=== PATIENT | female | born 1955 | race Caucasian/White ===

== ENCOUNTER 2021-12-10 12:16 | Emergency (ER) | payer MEDICARE, OTHER ==
--- OUTSIDE RECORDS SUMMARY | 2021-12-10 12:20 | XMS REPORT | Continuity of Care Document ---
:1955 Author Organization [facility] t Address [facility] Watkins [address] [place] [id number] Care Team Providers Name Role Phone Edwin GORE Primary Care Physician Unavailable Edwin Gore Attending Clinician Unavailable MELISSA Attending Clinician Unavailable Melissa SARMIENTO Attending Clinician Payers Payer Name Policy Type Policy Number Effective Date Expiration Date Donna clevelandkylee MORRIS/RUTH [id number] 2021 00:00:00 MCARE ADV CHOICE PPO Problems Condition Condition Condition Status Onset Resolution Last Treating Co mments Source Name Details Category Date Date Treatment Clinician Date Chest pain Chest pain Disease Active U nivers 4-20 ity of 00:00: [place] 00 Medical Branch 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 4-05 it y of ventric[place] ventric[place] Medical contractio contractio Br anch n) n) Allergies, Adverse Reactions, Alerts Allergy Allergy Status Severity Reaction(s) Onset Inactive Treating Comm ents Source Name Type Date Date Clinician Codeine Propensi Active Shortness of 2020- U nivers ty to Breath 4-06 ity of adverse 00:00: [place] reaction 00 Medical s Branch CODEINE DRUG Active SOB Univers INGREDI 4-06 ity of 00:00: [place] 00 Medical Branch Clindamy Propensi Active Diarrhea 2018-09 Univ ers rosa ty to 0-27 ity of adverse 00:00: [place] reaction 00 Medical s Branch Latex Propensi Active Itching 2018-09 Univers ty to 0-27 ity of adverse 00:00: [place] reaction 00 Medical s Branch Enoxapar Propensi Active Unknown - 2018-09 Uni vers in ty to See comments 0-27 ity of Sodium adverse 00:00: [place] reaction 00 Medical s Branch Nitrofur Propensi Active Nausea 2018-09 Univer s antoin ty to and/or 0-27 ity of Monohyd/ adverse Vomiting 00:00: [place] M-Cryst reaction 00 Medical s Branch Methylpr Propensi Active Anxiety 2018-09 Unive rs ednisolo ty to 0-27 ity of ne adverse 00:00: [place] reaction 00 Medical s Branch Sulfa Propensi Active Unknown - 2018-09 Unive rs (Sulfona ty to See comments 0-27 it y of mide adverse 00:00: [place] Antibiot reaction 00 Medica l ics) s Branch CLINDAMY DRUG Active Diarrhea 2018-09 Univer s ROSA INGREDI 0-27 ity of 00:00: [place] 00 Medical Branch LATEX DRUG Active ITCHING 2018-09 Univers INGREDI 0-27 ity of 00:00: [place] 00 Medical Branch ENOXAPAR DRUG Active Unknown-Cmnt 2018-09 Un kassie IN INGREDI 0-27 ity of SODIUM 00:00: [place] 00 Medical Branch NITROFUR DRUG Active N/V 2018-09 Univers ANTOIN 0-27 ity of MONOHYD/ 00:00: [place] M-CRYST 00 Medical Branch METHYLPR DRUG Active Anxiety 2018-09 Univers EDNISOLO INGREDI 0-27 ity of NE 00:00: [place] 00 Medical Branch SULFA Drug Active Unknown-Cmnt 2018-09 Univ ers (SULFONA Class 0-27 ity of MIDE 00:00: [place] ANTIBIOT 00 Medical ICS) Branch MethylPR Adverse Active INCREASE HR, C HI St EDNISolo Reaction PRESSURE IN L ukes - ne HEAD [facility] ent Clinics Macrobid Adverse Active NAUSEA[facility] Reaction VOMITING [facility] ent Clinics Lovenox Adverse Active TINGLING, [facility] Reaction THROAT [facility] - SWELLING [facility] ent [facility] Social History Social Habit Start Date Stop Date Quantity Comments Source Exposure to Not sure [facility] SARS-CoV-2 (event) Medica l Branch Tobacco use and 2020-08-16 2020-08-16 Never used [facility] exposure 00:00:00 00:00:00 [facility] Branch Sex Ass[birth year] [facility] 00:00:00 00:00:00 Medical Branch Smoking Status Start Date Stop Date Source Never smoker [facility] Medications Ordered Filled Start Stop Current Ordering Indication Dosage Frequency Signature Comments Components Source Medication Medication Date Date Medication? Clinician (SIG) Name Name magnesium Yes Take by [facility] ers chloride 3-11 mouth. ity of (SLOW-MAG 09:28: [place] ORAL) 07 Medical Branch SERTraline Yes 25mg Take 25 mg U nivers 25 mg 1-21 by mouth ity of tablet 09:28: daily. [place] 19 [facility] Branch cholecalcif Yes 1000U Take 1,000 Univers gilbert, 8-24 Units by ity of vitamin D3, 11:34: mouth [place] (VITAMIN 37 daily. Medical D3) 25 mcg Branch (1,000 unit) tablet Cranberry Yes Take by [facility] ers 400 mg Cap 8-24 mouth. ity of 11:34: [place] 37 [facility] amiodarone Yes 100mg Take 100 Un kassie 200 mg 6-15 mg by ity of tablet 00:00: mouth [place] 00 every Medical other day. Branch Estradiol Estradiol Yes [place] as [facility] 8-14 [facility] directed [facility] - 00:00: Memoria 00 [facility] ent [facility] Amoxicillin Amoxicillin 2020- No [place] [address] -Pot -Pot 8-11 08-16 [place] [facility] - Clavulanate Clavulanate 00:00: 00:00 Memoria 00 :00 [facility] ent [facility] Diclofenac Diclofenac Yes [place] as [facility] Sodium Sodium 5-18 [place] directed Lan es - 00:00: Memoria 00 l [facility] ent Clinics Slow-Mag Slow-Mag Yes [place] [address] [place] [facility] - [facility] ent Clinics Simvastatin Simvastatin Yes [place] TAKE ONE [facility] TABLET BY [facility] - MOUTH ONCE Memoria DAILY l [facility] ent Clinics Levothyroxi Levothyroxi Yes [place] TAKE [address] [facility] ne Sodium ne Sodium [place] TABLET BY [facility]ukes - MOUTH ONCE Memoria DAILY [facility] ON ent AN EMPTY Clinics STOMACH Omeprazole Omeprazole Yes [place] [address] [facility] ent Clinics Progesteron Progesteron Yes [place] [address] [facility] e e [place] applicatio [facility] - n Memoria l [facility] ent Clinics Metoprolol Metoprolol Yes [place] 0.[address] Tartrate Tartrate [place] with food [facility] Clinics Zoloft Zoloft Yes [place] [address] [place] [facility] Clinics Aspirin 81 Aspirin 81 Yes [place] [address] [facility] ent Clinics Levothyroxi Levothyroxi Yes [place] take one [facility] ne Sodium ne Sodium [place] daily [facility] ent Clinics Nasacort AQ Nasacort AQ Yes [place] not [facility] [place] defined [facility] Clinics Sertraline Sertraline Yes [place] TAKE [address] [facility] HCl HCl [place] TABLET BY [facility] - MOUTH ONCE Memoria DAILY l [facility] ent Clinics Prevagen Prevagen Yes [place] as [facility] [place] directed [facility] Clinics Vitamin D3 Vitamin D3 Yes [place] not [facility] defined [facility] Clinics Prolia Prolia Yes [place] not [facility] [place] defined [facility] ent Clinics Metoprolol Metoprolol Yes [place] TAKE [address] [facility] Succinate Succinate [place] TABLET BY [facility] - ER ER MOUTH ONCE Memoria DAILY l [facility] ent Clinics Augmentin Augmentin 2020- No [place] [address] 08-23 [place] [facility] - 00:00 Memoria :00 l [facility] ent Clinics Immunizations Ordered Filled Immunization Date Status Comments Sour e Immunization Name Name Influenza High Dose 2020-05-25 Completed Unive rsity of Quad 00:00:00 [facility] Vital Signs Vital Name Observation Time Observation Value Comments Source Systolic blood 2021-11-11 15:28:00 134 mm[Hg] Univer sity of pressure [facility] Diastolic blood 2021-11-11 15:28:00 81 mm[Hg] Unive rsity of pressure [facility] Heart rate 2021-11-11 15:28:00 65 /min [facility] Respiratory rate 2021-11-11 15:28:00 18 /min [facility] Body height 2021-11-11 15:28:00 160 cm [facility] Body weight 2021-11-11 15:28:00 67.586 kg [facility] BMI 2021-11-11 15:28:00 26.39 kg/m2 [facility] Oxygen saturation in 2021-11-11 15:28:00 100 /min [facility] blood by [facility] Pulse oximetry Branch Procedures This patient has no known procedures. Encounters Start End Encounter Admission Attending Care Care Encounter Source Date/Time Date/Time Type Type Clinicians Facility Department ID 2021-11-09 Outpatient Gore, [facility]:01 Jamey [id number] [facility] 2021-09-28 Outpatient Gore, [facility] 14:23:59 [place] [id number] [facility] 2021-09-28 Outpatient Gore, [facility] 12:57:37 Jame[place] [id number] [facility] 2021-09-28 Outpatient Gore, [facility] [id number] 12:44:09 Jame[place] [id number] [facility] 2021-09-28 Outpatient Gore, [facility] [id number] 12:29:54 Jamey [id number] [facility] 2021-09-28 Outpatient Gore, [facility] [id number] 11:27:46 Jamey [id number] [facility] 2021-09-28 [facility] [id number] 11:22:11 J[place] [id number] [facility] 2021-09-28 Out[facility], [facility] [id number] 11:19:10 Jamey [id number] [facility] 2021-09-28 Outpatient Gore, [facility] [id number] 11:17:26 Jamey [id number] [facility] 2021-09-28 Outpatient Gore, [facility] [id number] 11:13:00 Jamey [id number] [facility] 2021-09-28 Outpatient Gore, [facility] [id number] 11:12:47 Jamey [id number] [facility] 2022-05-26 2022-05-26 Outpatient R MELISSA [facility] [id number] Univers 08:20:00 08:20:00 JESÚS y [facility] 2021-11-22 2021-11-22 ambulatory [facility] [id number] [facility] 2021-11-22 2021-11-22 ambulatory [facility] [id number] [facility]00 [facility] 2021-11-22 2021-11-22 ambulatory [facility] [id number] [facility]00 [facility] 2021-11-11 2021-11-11 Office Melissa [facility] [id number] Univers 09:20:00 09:57:07 Visit Jesús JOSÉ MIGUEL [id number] i ty of [place] [id number] Mckayla FABIAN [id number] [address] 2021-11-11 2021-11-11 Outpatient Nora TORRES [facility] [id number] Univers 09:20:00 09:57:07 JESÚS ity [facility] 2021-11-08 2021-11-08 ambulatory [facility] [id number] [facility] 2021-08-16 2021-08-16 ambulatory [facility] [id number] [facility] 2021-05-13 2021-05-13 Outpatient [facility] [id number] [facility] 2021-04-26 2021-04-26 Outpatient [facility] [id number] [facility] 2021-04-19 2021-04-19 Outpatient [facility] [id number] [facility] 2021-03-28 2021-03-28 Outpatient [facility] [id number] [facility] 2021-03-23 2021-03-23 Outpatient [facility] [id number] [facility] 2021-02-21 2021-02-21 Outpatient [facility] [id number] [facility] 2021-01-11 2021-01-11 Outpatient [facility] [id number] [facility] 2021-01-10 2021-01-10 Outpatient [facility] [id number] [facility] 2020-12-31 2020-12-31 Outpatient [facility] [id number] [facility] 2020-12-31 2020-12-31 Outpatient [facility] [id number] [facility] 2020-12-15 2020-12-15 Outpatient [facility] [id number] [facility] 2020-12-02 2020-12-02 Outpatient [facility] [id number] [facility] 2020-11-30 2020-11-30 [facility] [id number] [facility] 2020-11-25 2020[facility]11-25 [facility] [id number] [facility] 2020-11-25 2020-11-25 [facility] [id number] [facility] 2020-10-27 2020-10-27 [facility] [id number] [facility] 2020-10-08 2020-10-08 [facility] [id number] 00:00:00 00:00:00 [facility] [id number] [place] [id number] [id number] nal 059 [facility] 2020-08-30 2020-08-30 Outpatient [facility] [id number] [facility] 2020-08-10 2020-08-10 Outpatient [facility] [id number] [facility] 2020-07-09 2020-07-09 [facility] [id number] [facility] 2020-06-08 2020-06-08 [facility] [id number] [facility] 2020-05-28 2020-05-28 [facility] [id number] [facility] 2020-04-16 2020-04-16 [facility] [id number] 09:30:00 09:30:00 t Specialty/U Jacki kes - Specialty rology Memori a /Urology Clinic l Clinic Outpati ent Clinics 2020-04-14 2020-04-14 [facility] [id number] 17:02:00 17:02:[address] [address] [place] - Drive [facility] Medicine l Medicine Outpati ent Clinics 2020-04-14 2020-04-14 [facility] [id number] 08:30:00 08:30:[address] [address] Luke [place] - Drive [facility] Medicine l Medicine Outpati ent Clinics 2020-04-12 2020-04-12 [facility] [id number] 17:00:00 17:00:00 [place] [employer] [place] s - Drive [facility] Medicine l Medicine Outpati ent Clinics 2020-04-12 2020-04-12 [facility] [id number] 09:31:00 09:31:[address] [address] Luke [place] - Drive [facility] Medicine l Medicine Outpati ent Clinics 2020-04-07 2020-04-07 [facility] [id number] 13:16:00 13:16:[address] [address] Luke [place] - Drive [facility] Medicine l Medicine Outpati ent Clinics 2020-03-24 2020-03-24 [facility] [id number] 17:13:00 17:13:00 t [facility] Road LuPriceline s - Road [facility] Medicine l Medicine Outpati ent Clinics 2020-03-22 2020-03-22 [facility] [id number] 13:00:00 13:00:00 [facility] s - Road [facility] Medicine Outpati ent Clinics 2020-03-11 2020-03-11 [facility] [id number] 13:23:00 13:23:00 t [place] Intio LuPriceline s - Drive [facility] l Medicine Outpati ent Clinics 2020-03-04 2020-03-04 [facility] [id number] 13:50:00 13:50:00 t [place] readeo s - Drive [facility] Medicine l Medicine Outpati ent Clinics 2020-02-03 2020-02-03 [facility] [id number] 09:12:00 09:12:00 [place] readeo s - Drive [facility] l Medicine Outpati ent Clinics 2020-01-19 2020-01-19 [facility] [id number] 09:00:00 09:00:00 t [facility] and [facility] ent [facility] 2019-11-12 2019-11-12 [facility] [id number] 14:30:00 14:30:00 [place] readeo s - [employer] [facility] Medicine Outpati ent Clinics 2019-11-12 2019-11-12 [facility] [id number] 14:15:00 14:15:00 t [place] readeo s - Drive [facility] Medicine Outpati ent Clinics 2019-08-18 2019-08-18 [facility] [id number] 08:45:00 08:45:00 [place] readeo s - Drive [facility] Medicine Outpati ent Clinics 2019-07-01 2019-07-01 [facility] [id number] 10:14:00 10:14:00 t [place] readeo s - Drive [facility] Medicine Outpati ent Clinics 2019-07-01 2019-07-01 [facility] [id number] 07:48:00 07:48:00 t [place] readeo s [email or web address] [facility] l Medicine Outpati ent Clinics 2019-06-30 2019-06-30 [facility] [id number] 08:00:00 08:00:00 [place] [facility] s - Drive [facility] Medicine l Medicine Outpati ent Clinics 2019-05-22 2019-05-22 [facility] [id number] 14:13:00 14:13:00 t [facility] l Outpati ent Clinics 2019-05-19 2019-05-19 [facility] [id number] 09:45:00 09:45:00 [place] [facility] s - Drive [facility] Medicine l Medicine Outpati ent Clinics 2019-05-14 2019-05-14 [facility] [id number] 13:25:00 13:25:00 t [place] readeo s - Drive [facility] Medicine Medicine Outpati ent Clinics 2019-05-13 2019-05-13 [facility] [id number] 14:32:00 14:32:00 t [place] readeo s - Drive [facility] Medicine l Medicine Outpati ent Clinics 2019-05-13 2019-05-13 [facility] [id number] 12:05:00 12:05:00 t [place] readeo s - Drive [facility] Medicine Medicine Outpati ent Clinics 2019-05-13 2019-05-13 [facility] [id number] 09:37:00 09:37:00 t [place] readeo s - Drive [facility] Medicine Medicine Outpati ent Clinics 2019-03-19 2019-03-19 [facility] [id number] 14:02:00 14:02:00 t [place] readeo s - Drive [facility] Medicine Medicine Outpati ent Clinics 2018-12-25 2018-12-25 [facility] [id number] 11:30:00 11:30:00 t [facility] Clinic l Outpati ent Clinics 2018-12-16 2018-12-16 [facility] [id number] 11:18:00 11:18:00 [place] readeo s - Drive [facility] Medicine Medicine Outpati ent Clinics 2018-11-04 2018-11-04 [facility] [id number] 13:39:00 13:39:00 t [facility] Outpati ent Clinics 2018-09-17 2018-09-17 [facility] [id number] 11:45:00 11:45:00 [place] readeo s - Drive [facility] Medicine Medicine Outpati ent Clinics 2018-08-12 2018-08-12 [facility] [id number] 10:00:00 10:00:00 t [place] readeo s - Drive [facility] Medicine Outpati ent Clinics 2018-03-27 2018-03-27 [facility] [id number] 08:20:00 08:20:00 [place] readeo s - [employer] [facility] Outpati ent Clinics 2018-03-13 2018-03-13 [facility] [id number] 08:02:00 08:02:00 t [place] readeo s - Drive [facility] Medicine Outpati ent Clinics 2018-03-05 2018-03-05 [facility] [id number] 08:09:00 08:09:00 t [place] readeo s - Drive [facility] Medicine Outpati ent Clinics 2018-02-20 2018-02-20 [facility] [id number] 10:48:00 10:48:00 t Women's Women[facility] Luke s - Care Care Clinic [facility] Clinic l Outpati ent Clinics 2018-02-20 2018-02-20 [facility] [id number] 10:21:00 10:21:00 t Women[facility] Clinic l Outpati ent Clinics 2018-02-14 2018-02-14 [facility] [id number] 16:34:00 16:34:00 t Women's Women[facility] Luke [facility] - Care Care Clinic [facility] Clinic l Outpati ent Clinics 2018-02-13 2018-02-13 [facility] [id number] 09:00:00 09:00:00 t hulu s [email or web address] [facility] Medicine Medicine Outpati ent Clinics Results This patient has no known results.
[2021-12-10 13:19] LABS: Urine Blood Negative (Negative); Urine Glucose Negative (Negative); Urine Protein Negative (Negative); Urine Specific Gravity 1.015 (1.005-1.030); Urine pH 6.5 (5.0-7.0)
[2021-12-10 13:44] LABS: Absolute Lymphocytes (CBC) 2.1 K/uL (0.7-4.9); Hematocrit 37.7 % (36.0-45.0); Lymphocytes % 39.5 % (15.3-44.8); MPV 9.4 fL (7.6-11.3); RBC Red Blood Cell Count 4.16 M/uL (3.86-4.86)
[2021-12-10 13:45] LABS: Protime INR 1.03
--- NOTE | 2021-12-10 13:57 | RAD REPORT ---
EXAM DESCRIPTION: Stephanie Single View12/10/2021 1:28 pm CLINICAL HISTORY: Vertigo COMPARISON: 2011 FINDINGS: The lungs appear clear of acute infiltrate. The heart is normal size IMPRESSION: No acute abnormalities displayed
[2021-12-10 14:08] LABS: Albumin 3.7 g/dL (3.4-5.0); Bilirubin Direct 0.1 mg/dL (0-0.2); Bilirubin Total 0.3 mg/dL (0.2-1.0); Magnesium 2.2 mg/dL (1.8-2.4); Potassium 3.8 mmol/L (3.5-5.1); Protein, Total 7.3 g/dL (6.4-8.2); Thyroid Stimulating Hormone 1.42 uIU/mL (0.360-3.740); Troponin High Sensitivity 4.7 pg/mL (<58.9)
--- NOTE | 2021-12-10 17:09 | ER ---
Nurse's Notes [facility] Name: Payton Barron Age: 66 yrs Sex: Female : 1955 Arrival Date: 12/10/2021 Time: 12:18 Bed 6 Private MD: Diagnosis: Palpitations;Syncope Near Presentation: 12/10 12:22 Chief complaint: Patient states: "I was working and I started feeling really dizzy all ab2 the sudden. My arms felt like they were tingling, I thought I was going to pass out." Pt c/o dizziness. Pt c/o a fluttering feeling in her chest. Coronavirus screen: Vaccine status: Patient reports receiving the 2nd dose of the covid vaccine. Client denies travel out of the [place] in the last 14 days. At this time, the client does not indicate any symptoms associated with coronavirus-19. Ebola Screen: Patient negative for fever greater than or equal to 101.5 degrees Fahrenheit, and additional compatible Ebola Virus Disease symptoms Patient denies exposure to infectious person. Patient denies travel to an Ebola-affected area in the 21 days before illness onset. No symptoms or risks identified at this time. Initial Sepsis Screen: Does the patient meet any 2 criteria? No. Patient's initial sepsis screen is negative. Does the patient have a suspected source of infection? No. Patient's initial sepsis screen is negative. Risk Assessment: Do you want to hurt yourself or someone else? Patient reports no desire to harm self or others. Onset of symptoms is unknown. 12:22 Method Of Arrival: Ambulatory ab2 12:22 Acuity: THONY 3 ab2 Triage Assessment: 12:24 General: Appears in no apparent distress. comfortable, Behavior is calm, cooperative, ab2 appropriate for age. Pain: Denies pain. EENT: No deficits noted. Neuro: Level of Consciousness is awake, alert, obeys commands, Oriented to person, place, time, situation, Appropriate for age Rn Telemetry are equal bilaterally Moves all extremities. Speech is normal, Facial symmetry appears normal, Reports dizziness. Cardiovascular: Reports lightheadedness, Denies shortness of breath, Patient's skin is warm and dry. Respiratory: Airway is patent Respiratory effort is even, unlabored, Respiratory pattern is regular, symmetrical. GI:. : No deficits noted. No signs and/or symptoms were reported regarding the genitourinary system. Derm: Skin is intact, Skin is dry, Skin is pink, warm \\T\\ dry. Historical: - Allergies: 12:22 Clindamycin; ab2 12:22 Codeine; ab2 12:22 Latex, Natural Rubber; ab2 12:22 Lovenox; ab2 12:22 methlyprednisolong; ab2 12:22 Sulfa (Sulfonamide Antibiotics); ab2 - PMHx: 12:22 heart palpatations- treated with metoprolol; Hyperlipidemia; Hypothyroidism; ab2 Osteoporosis; - Immunization history:: Adult Immunizations up to date. - Social history:: Smoking status: Patient denies any tobacco usage or history of. Screenin:35 Abuse screen: Denies threats or abuse. Nutritional screening: No deficits noted. vg1 Tuberculosis screening: No symptoms or risk factors identified. Fall Risk No fall in past 12 months (0 pts). No secondary diagnosis (0 pts). IV access (20 points). Ambulatory Aid- None/Bed Rest/Nurse Assist (0 pts). Gait- Normal/Bed Rest/Wheelchair (0 pts) Mental Status- Oriented to own ability (0 pts). Total Jacob Fall Scale indicates No Risk (0-24 pts). Assessment: 12:35 General: Appears in no apparent distress. uncomfortable, Behavior is calm, cooperative. vg1 Pain: Denies pain. Neuro: Level of Consciousness is awake, alert, obeys commands, Oriented to person, place, time, situation, Reports dizziness, Denies headache. Cardiovascular: Reports lightheadedness, palpitations, since this morning Patient's skin is warm and dry. Respiratory: Airway is patent Respiratory effort is even, unlabored. GI: Patient currently denies pain, vomiting. : No signs and/or symptoms were reported regarding the genitourinary system. EENT: No signs and/or symptoms were reported regarding the EENT system. Derm: Skin is intact, is healthy with good turgor. Musculoskeletal: Circulation, motion, and sensation intact. 13:30 Reassessment: Patient appears in no apparent distress at this time. No changes from vg1 previously documented assessment. Patient and/or family updated on plan of care and expected duration. Pain level reassessed. Patient is alert, oriented x 3, equal unlabored respirations, skin warm/dry/pink. 15:09 Reassessment: Patient appears in no apparent distress at this time. No changes from vg1 previously documented assessment. Patient and/or family updated on plan of care and expected duration. Pain level reassessed. Patient is alert, oriented x 3, equal unlabored respirations, skin warm/dry/pink. Patient denies pain at this time. 16:00 Reassessment: Patient appears in no apparent distress at this time. Patient and/or vg1 family updated on plan of care and expected duration. Pain level reassessed. Patient is alert, oriented x 3, equal unlabored respirations, skin warm/dry/pink. Patient denies pain at this time. Vital Signs: 12:22 BP 163 / 79; Pulse 68; Resp 18; Temp 98.1; Pulse Ox 100% on R/A; Weight 65.77 kg; ab2 Height 5 ft. 3 in. (160.02 cm); Pain 0/10; 13:57 BP 127 / 70 LA Supine; Pulse 63; Resp 16; Pulse Ox 100% on R/A; dh3 13:59 BP 115 / 68 LA Sitting; Pulse 64; Resp 16; Pulse Ox 100% on R/A; dh3 14:01 BP 111 / 65 LA Standing; Pulse 65; Resp 16; Pulse Ox 100% on R/A; dh3 15:10 BP 129 / 63; Pulse 63; Resp 15; Pulse Ox 100% ; vg1 16:34 BP 154 / 74; Pulse 60; Resp 14; Pulse Ox 99% ; vg1 12:22 Body Mass Index 25.69 (65.77 kg, 160.02 cm) ab2 ED Course: 12:18 Patient arrived in ED. jj6 12:24 Triage completed. ab2 12:25 Arm band placed on left wrist. ab2 12:26 Prince Lewis NP is PHCP. pm1 12:26 Andi Guzman MD is Attending Physician. pm1 12:30 Nicole Singh, CLEMENTE is Primary Nurse. vg1 12:35 Patient has correct armband on for positive identification. Bed in low position. Call vg1 light in reach. Side rails up X2. electronic device monitor on. Pulse ox on. NIBP on. 12:41 EKG done, by ED staff, reviewed by Prince Lewis NP. dh3 12:50 Initial lab(s) drawn, by me, sent to lab. Inserted saline lock: 22 gauge in right vg1 wrist, using aseptic technique. Blood collected. 13:29 Chest Single View In Process Unspecified. EDMS 16:34 Repeat lab(s) drawn. by me, sent to lab. vg1 17:41 No provider procedures requiring assistance completed. IV discontinued, intact, vg1 bleeding controlled, No redness/swelling at site. Pressure dressing applied. Administered Medications: No medications were administered Outcome: 17:09 Discharge ordered by MD. pm1 17:41 Discharged to home ambulatory. vg1 17:41 Condition: good 17:41 Discharge instructions given to patient, Instructed on discharge instructions, follow up and referral plans. Demonstrated understanding of instructions, follow-up care. 17:41 Patient left the ED. vg1 Signatures: Dispatcher [employer] EDMS Prince Lewis, REGISTER OF DEEDS REGISTER OF DEEDS pm1 Bhumi Pizarro dh3 Nicole Singh RN RN vg1 Indigo Stewartj6 Maxi Zuniga ab2 Corrections: (The following items were deleted from the chart) 13:00 12:57 Wound care: to skin tear to left calf cleaned with chlorhexidine and normal dh3 saline, dressed with steri strips and kerlix dh3 13:03 12:35 Cardiovascular: Patient's skin is warm and dry. vg1 vg1
--- NOTE | 2021-12-10 17:10 | EDPHYS ---
Physician Documentation [facility] Name: Payton Barron Age: 66 yrs Sex: Female : 1955 Arrival Date: 12/10/2021 Time: 12:18 Bed 6 Private MD: ED Physician Andi Guzman HPI: 12/10 12:36 This 66 yrs old Female presents to ER via Ambulatory with complaints of Vertigo, pm1 General Weakness. 12:36 The patient presents with a history of irregular heart beat, Fluttering. Context: The pm1 symptoms occur at rest, and the patient has a history of atrial fibrillation and PVC. Onset: The symptoms/episode began/occurred just prior to arrival. Duration: The patient or guardian reports a single episode, that is now resolved, that lasted 10 minute(s). Modifying factors: The symptoms are aggravated by nothing. The symptoms are alleviated by nothing. Associated signs and symptoms: Pertinent positives: near-syncope, tingling to left and right hands and arms. Vertigo when she moved her head to the right side during onset of symptoms, Pertinent negatives: chest pain, fever, nausea, SOB, vomiting. Severity of symptoms: in the emergency department the symptoms have resolved Pain is currently a 0 / 10. Patient was seen by EP about one month ago to determine if she can be removed from amiodarone. Patient has been taking amiodarone for the past 3 months. It was decided that she should be continued on amiodarone. Historical: - Allergies: 12:22 Clindamycin; ab2 12:22 Codeine; ab2 12:22 Latex, Natural Rubber; ab2 12:22 Lovenox; ab2 12:22 methlyprednisolong; ab2 12:22 Sulfa (Sulfonamide Antibiotics); ab2 - PMHx: 12:22 heart palpatations- treated with metoprolol; Hyperlipidemia; Hypothyroidism; ab2 Osteoporosis; - Immunization history:: Adult Immunizations up to date. - Social history:: Smoking status: Patient denies any tobacco usage or history of. ROS: 12:36 Constitutional: Negative for fever, chills, and weight loss. pm1 12:36 Respiratory: Negative for shortness of breath, cough, wheezing, and pleuritic chest pain, Abdomen/GI: Negative for abdominal pain, nausea, vomiting, diarrhea, and constipation, Back: Negative for injury and pain, MS/Extremity: Negative for injury and deformity, Skin: Negative for injury, rash, and discoloration. 12:36 Cardiovascular: Positive for palpitations, Negative for chest pain. 12:36 Neuro: Positive for near syncope, vertigo and tingling to both hands and arms bilaterally. Generalized weakness, Negative for headache. 12:36 All other systems are negative. Exam: 12:36 Constitutional: This is a well developed, well nourished patient who is awake, alert, pm1 and in no acute distress. Head/Face: Normocephalic, atraumatic. Chest/axilla: Normal chest wall appearance and motion. Nontender with no deformity. No lesions are appreciated. 12:36 Back: No spinal tenderness. No costovertebral tenderness. Full range of motion. Skin: Warm, dry with normal turgor. Normal color with no rashes, no lesions, and no evidence of cellulitis. MS/ Extremity: Pulses equal, no cyanosis. Neurovascular intact. Full, normal range of motion. 12:36 Cardiovascular: Exam negative for acute changes, Rate: normal, Rhythm: regular, Pulses: no pulse deficits are appreciated, Heart sounds: normal, normal S1and S2, no murmur, Edema: is not appreciated. 12:36 Respiratory: Exam negative for acute changes, respiratory distress, shortness of breath, Breath sounds: are clear throughout. 12:36 Abdomen/GI: Exam negative for acute changes, Inspection: abdomen appears normal, Palpation: abdomen is soft and non-tender, in all quadrants. 12:36 Neuro: Exam negative for acute changes, Orientation: is normal, Mentation: is normal, Motor: is normal, moves all fours. Vital Signs: 12:22 BP 163 / 79; Pulse 68; Resp 18; Temp 98.1; Pulse Ox 100% on R/A; Weight 65.77 kg; ab2 Height 5 ft. 3 in. (160.02 cm); Pain 0/10; 13:57 BP 127 / 70 LA Supine; Pulse 63; Resp 16; Pulse Ox 100% on R/A; dh3 13:59 BP 115 / 68 LA Sitting; Pulse 64; Resp 16; Pulse Ox 100% on R/A; dh3 14:01 BP 111 / 65 LA Standing; Pulse 65; Resp 16; Pulse Ox 100% on R/A; dh3 15:10 BP 129 / 63; Pulse 63; Resp 15; Pulse Ox 100% ; vg1 16:34 BP 154 / 74; Pulse 60; Resp 14; Pulse Ox 99% ; vg1 12:22 Body Mass Index 25.69 (65.77 kg, 160.02 cm) ab2 MDM: 12:28 Patient medically screened. vick 13:59 Data reviewed: vital signs. Data interpreted: Pulse oximetry: on room air is 100 %. pm1 Interpretation: normal. 15:10 Counseling: I had a detailed discussion with the patient and/or guardian regarding: lab pm1 results, radiology results, repeat troponin in the ER 4 hours after onset of symptoms. 17:08 Counseling: I had a detailed discussion with the patient and/or guardian regarding: the pm1 historical points, exam findings, and any diagnostic results supporting the discharge/admit diagnosis, lab results, the need for outpatient follow up, to return to the emergency department if symptoms worsen or persist or if there are any questions or concerns that arise at home. 12/10 13:19 Order name: Urine Dipstick-Ancillary; Complete Time: 13:50 EDMS 12/10 13:37 Order name: Basic Metabolic Panel; Complete Time: 14:17 EDMS 12/10 13:37 Order name: Liver (Hepatic) Function; Complete Time: 14:17 EDMS 12/10 13:37 Order name: Troponin High Sensitivity; Complete Time: 14:17 EDMS 12/10 13:37 Order name: NT PRO-BNP; Complete Time: 14:17 EDMS 12/10 13:37 Order name: Magnesium; Complete Time: 14:17 EDMS 12/10 12:35 Order name: EKG; Complete Time: 14:35 pm1 12/10 12:35 Order name: Cardiac monitoring; Complete Time: 12:55 pm1 12/10 12:35 Order name: EKG - Nurse/Tech; Complete Time: 12:42 pm1 12/10 12:35 Order name: IV Saline Lock; Complete Time: 12:55 pm1 12/10 12:35 Order name: Labs collected and sent; Complete Time: 12:55 pm1 12/10 12:35 Order name: O2 Per Protocol; Complete Time: 13:04 pm12/10 12:35 Order name: O2 Sat Monitoring; Complete Time: 13:04 pm1 12/10 13:04 Order name: Chest Single View; Complete Time: 13:57 EDMS 12/10 13:10 Order name: Urine Dipstick-Ancillary (obtain specimen); Complete Time: 14:06 pm1 12/10 13:37 Order name: Thyroid Stimulating Hormone; Complete Time: 14:17 EDMS 12/10 13:37 Order name: CBC with Automated Diff; Complete Time: 13:50 EDMS 12/10 13:40 Order name: Protime (+INR); Complete Time: 13:50 EDMS 12/10 13:50 Order name: Orthostatic Blood Pressure; Complete Time: 14:06 pm1 12/10 16:17 Order name: Troponin HS; Complete Time: 17:04 pm1 Administered Medications: No medications were administered Disposition Summary: 12/10/21 17:09 Discharge Ordered Location: Home pm1 Problem: new pm1 Symptoms: have improved pm1 Condition: Stable pm1 Diagnosis - Palpitations pm1 - Syncope Near pm1 Followup: pm1 - With: Emergency Department - When: As needed - Reason: Worsening of condition Followup: pm1 - With: Private Physician - When: 2 - 3 days - Reason: Recheck today's complaints, Continuance of care, Re-evaluation by your physician Discharge Instructions: - Discharge Summary Sheet pm1 - Near-Syncope pm1 - Palpitations pm1 Forms: - Medication Reconciliation Form pm1 - Thank You Letter pm1 - Antibiotic Education pm1 - Prescription Opioid Use pm1 Addendum: 12/15/2021 18:59 Co-signature as Attending Physician, Andi Guzman MD I agree with the assessment and c ewing plan of care. Signatures: Dispatcher [employer] Andi Coronel MD MD cha Marinas, Patrick, DANYA SENIOR [employer] SYSTEMS PROGRAMMER pm1 Maxi Zuniga ab2 Corrections: (The following items were deleted from the chart) 12/10 14:43 14:35 Chest Single View+RAD.RAD.BRZ ordered. EDMS EDMS 14:44 14:35 PROTIME (+INR)+COAG.LAB.BRZ ordered. EDMS EDMS 14:45 14:35 BASIC METABOLIC PANEL+C.LAB.BRZ ordered. EDMS EDMS 14:45 14:35 CBC+H.LAB.BRZ ordered. EDMS EDMS 14:45 14:35 HEPATIC FUNCTION+C.LAB.BRZ ordered. EDMS EDMS : 14:35 MAGNESIUM+C.LAB.BRZ ordered. EDMS EDMS : 14:35 PROBNP+C.LAB.BRZ ordered. EDMS EDMS : 14:35 Troponin High Sensitivity+C.LAB.BRZ ordered. EDMS EDMS : 14:35 THYROID STIMULAT HORMONE+C.LAB.BRZ ordered. EDMS EDMS
[2021-12-10 18:09] VITALS: TEMP 98.1
[2021-12-10 18:17] VITALS: BP 154/74; O2SAT 99
--- NOTE | 2021-12-12 09:42 | EKG ---
Test Date: 2021-12-10 Test Time: 12:34:09 Aircraft Detail Draftsperson: FOZIA MEASUREMENT RESULTS: Intervals: Rate: 69 LA: 200 QRSD: 102 QT: 422 QTc: 452 Aguilar: P: 62 LA: 200 QRS: 51 T: 45 INTERPRETIVE STATEMENTS: Normal sinus rhythm Normal ECG Compared to ECG 10/16/2015 07:50:40 No significant changes Electronically Signed On 12-12-21 09:36:08 CDT by Stephen Wylie
== END 2021-12-10 17:41 | disposition home or self-care (01) ==
LOC: ER 12:16
DX: R00.2 Palpitations (principal); R55 Syncope and collapse; Z88.6 Allergy status to analgesic agent; Z88.3 Allergy status to other anti-infective agents; Z88.2 Allergy status to sulfonamides; Z91.040 Latex allergy status; Z88.8 Allergy status to other drugs, medicaments and biological substances; E78.5 Hyperlipidemia, unspecified; E03.9 Hypothyroidism, unspecified; M81.0 Age-related osteoporosis without current pathological fracture
CPT/HCPCS: 36415; 71045; 80048; 80076; 81003; 83735; 83880; 84443; 84484; 85025; 85610; 93005; 99284

== ENCOUNTER 2024-11-17 06:35 | Emergency (ER) | payer OTHER ==
--- OUTSIDE RECORDS SUMMARY | 2024-11-17 06:43 | XMS REPORT | Continuity of Care Document ---
Author Name Unknown Address [address] [facility] [address] [place] [address] Organization [facility] [place] Address [address] [facility] [address] [place] [address] Care Team Providers Care Mr Teacher Name Role Phone Razia Gore Primary Care Physician [phone] Bao Razia Edwin Attending Clinician Unavailable LUPIS CEDENO Attending Clinician Unavailable LUPIS CEDENO Attending Clinician Unavailable KEN DIAMOND Attending Clinician Unav ailable KEN DIAMOND Attending Clinician Unav ailable EDGARD GRUBBS Attending Clinician Unavailregine Bell MD, Ramon Attending Clinician [phone] RAMON BELL Attending Clinician Unavailable Arsh Mclean DO Attending Clinician + Lobo SARMIENTO, Ken Attending Clinician + Edgard Hernandez Attending Clinician [phone] Nicko Gore Attending Clinician [phone] Doctor Unassigned, [place] Attending Clinician U navailable JAN MARTINEZ Attending Clinician Unavail able SAMEER SILVA K.HRachel Attending Clinician Unavailtoñito Silva MD, Sendque K.H. Attending Clinician [phone] Therapist, Ad[facility] Respiratory Attending Clinician U navailable Unknown, Attending Attending Clinician Unavailab le UNKNOWN, ATTENDING Attending Clinician Unavailab le RADIOLOGY Attending Clinician Unavailable Radiology Attending Clinician Unavailable Pob, [facility] Lab Main Attending Clinician Unavailregine Silva MD, Sendque K.H. Attending Clinician [phone] Radiology Attending Clinician Unavailable Doctor Unassigned, [place] Attending Clinician U navailable GAMALIEL TORRES Attending Clinician Unavailable 2, [facility] Lab Attending Clinician Unavailable Rowan Jasmine Attending Clinician ROWAN MAGANA Attending Clinician Krista vailable IZABELA CHAWLA Attending Clinician Unavailable Izabela Chawla MD Attending Clinician [phone] Aysha Carrasco NP Attending Clinician [phone] AYSHA CARRASCO Attending Clinician Unavailable Melissa SARMIENTO, Gamaliel Attending Clinician [phone] Test, Vtc Pulmonary Function Attending Clinician Unavailable Unknown, Attending Attending Clinician Unavailab le Only, Adc Test Attending Clinician Unavailable Erik CORNEJO, Kirstie Louis Attending Clinician Unavailab le KI FAIRCHILD Attending Clinician Unavailable ABU-SHARIFEH, TAREQ Attending Clinician Unavailtoñito ESPINOSA, MAYEEQ Attending Clinician Unavaila JET Gallardo Attending Clinician Unavailable SANAZ US Attending Clinician Unavailable EDGARD GRUBBS Admitting Clinician UnavailRAZIA Tubbs Admitting Clinician Unavailable SAMEER SILVA Admitting Clinician Unavaila IZABELA [place] Admitting Clinician Unavailable ARSH MCLEAN Admitting Clinician Unavailable Payers Payer Name Policy Type Policy Number Effective Date Expirati on Date Source MANAGED MEDICARE PPO/FFS GENERIC [id number] 2020 00:00:00 MEDICARE PART A \T\ B [id number] 2018 00:00:00 [place] [id number] 2019 00:00:00 [facility] MCR Advantage (HMO-POS) [id number] 2021 00:00:00 [place] [id number] [place] [id number] [place] [id number] Comm n [place] [address] [id number] [facility] COMMERCIAL NON-CONTRACT GENERIC [id number] 2020 00:00:00 Problems Condition Name Condition Details Condition Category Status Onset Date Resolution Date Last Treatment Date Treating Clinician Comments Source Chest pain Chest pain Disease Active - 00:00: 00 [facility] PVC (premature ventricula r contractio n) PVC (premature ventricula r contractio n) Disease Active 4-05 00:00: 00 [facility] [id number] Incomplete emptying of bladder Problem Common [facility] [id number] Acute UTI Problem Comm on [facility] [id number] Lower urinary tract symptoms (LUTS) Problem [facility] [id number] Abnormal mammogram Problem Common [facility] Dysuria Dysuria Problem [facility] [id number] Mixed hyperlipid emia Problem [facility] Mixed anxiety and depressive disorder Depression with anxiety Problem [facility] [id number] Gastroesop hageal reflux disease without esophagiti s Problem [facility] [id number] Abnormal heart rate Problem [facility] Osteoporos is Osteoporos is Problem [facility] [id number] History of hysterecto my for benign disease Problem [facility] [id number] Seasonal allergic rhinitis, unspecifie d trigger Problem [facility] Hypothyroi dism Hypothyroi dism Problem [facility] [id number] Generalize d anxiety disorder Problem [facility] [id number] Current moderate episode of major depressive disorder without prior episode Problem [facility] [id number] Dementia without behavioral disturbanc e, unspecifie d dementia type Problem [facility] [id number] Subclinica l hypothyroi dism Problem [facility] [id number] Mild dementia Problem [facility] [id number] Vaginal atrophy Problem [facility] [id number] Primary osteoarthr itis of left wrist Problem [facility] [id number] Primary osteoarthr itis of right wrist Problem [facility] [id number] Cystitis bacillary, chronic Problem [facility] [id number] Symptomati c PVCs Problem [facility] Allergies, Adverse Reactions, Alerts Allergy Name Allergy Type Status Severity Reaction(s) Onset Date Inactive Date Treating Clinician Comments Source Codeine Propensi ty to adverse reaction s Active Shortness of Breath 12-07 00:00: 00 [facility] CODEINE DRUG INGREDI Active SOB 12-07 00:00: 00 [facility] CLINDAMY ROSA HCL DRUG INGREDI Active High SOB 2018-09 00:00: 00 [facility] CODEINE DRUG INGREDI Active High SOB 2018-09 00:00: 00 [facility] Clindamy rosa Hcl Drug Allergy Active Shortness of Breath 2018-09-12 00:00: 00 [facility] Clindamy rosa Propensi ty to adverse reaction s Active Diarrhea 2018-09 00:00: 00 [facility] Latex Propensi ty to adverse reaction s Active Itching 2018-09 00:00: 00 [facility] Enoxapar in Sodium Propensi ty to adverse reaction s Active Unknown - See comments 2018-09 00:00: 00 [facility] Nitrofur antoin Monohyd/ M-Cryst Propensi ty to adverse reaction s Active Nausea and/or Vomiting 2018-09 00:00: 00 [facility] Methylpr ednisolo ne Propensi ty to adverse reaction s Active Anxiety 2018-09 00:00: 00 [facility] Sulfa (Sulfona mide Antibiot ics) Propensi ty to adverse reaction s Active Unknown - See comments 2018-09 00:00: 00 [facility] CLINDAMY ROSA DRUG INGREDI Active Diarrhea 2018-09 00:00: 00 [facility] LATEX DRUG INGREDI Active High ITCHING 2018-09 00:00: 00 [facility] ENOXAPAR IN SODIUM DRUG INGREDI Active Unknown-Cmnt 2018-09 00:00: 00 [facility] NITROFUR ANTOIN MONOHYD/ M-CRYST DRUG Active N/V 2018-09 00:00: 00 [facility] METHYLPR EDNISOLO NE DRUG INGREDI Active High Anxiety 2018-09 00:00: 00 [facility] SULFA (SULFONA MIDE ANTIBIOT ICS) Drug Class Active Unknown-Cmnt 2018-09 00:00: 00 [facility] Latex Drug Allergy Active Itching 2018-09 00:00: 00 [facility] 0 Drug allergy Active RASH [facility] clindamy rosa clindamy rosa Active DIARRHEA [facility] codeine codeine Active SOB [facility] methylpr ednisolo ne methylpr ednisolo ne Active INCREASE HR, PRESSURE IN HEAD [facility] nitrofur antoin, macrocry stals / nitrofur antoin, monohydr ate nitrofur antoin, macrocry stals / nitrofur antoin, monohydr ate Active NAUSEA, VOMITING [facility] enoxapar in enoxapar in Active TINGLING, THROAT SWELLING [facility] Social History Social Habit Start Date Stop Date Quantity Comments Source Gender identity [facility] Sexual orientation U [facility] History of Tobacco Use [facility] Sex Assigned At [facility] History of Social function 2024-04-03 00:00:00 2024-04-03 00:00:00 [facility] Exposure to SARS-CoV-2 (event) 2022-12-19 00:00:00 2022-12-29 09:50:00 Not sure [facility] Tobacco use and exposure 2022-03-20 00:00:00 2022-03-20 00:00:00 Smokeless tobacco non-user [facility] Smoking Status Start Date Stop Date Source Never smoked tobacco [facility] Medications Ordered Medication Name Filled Medication Name Start Date Stop Date Current Medication? Ordering Clinician Indication Dosage Frequency Signature (SIG) Comments Components Source cefTRIAXone (ROCEPHIN) 1,000 mg in water for injection, sterile 10 mL IV Push 10-23 18:15: 00 10-23 17:23 :00 No 1000mg 1,000 mg, Intravenou s, ONCE, 1 dose, On Liliya 10/23/24 at 1215, 10 mL, Reason for Anti-Infec tive: Empiric Therapy for Suspected Infection, Empiric Therapy Site: Urine, Duration of therapy: Once (ED) [facility] cephALEXin 500 mg capsule 10-23 00:00: 00 10-29 05:59 :00 Yes [id number] 500mg Take 1 capsule by mouth 4 (four) times daily for 5 days. [facility] METHENAMINE 1 gram tablet 14 00:00: 00 Yes [id number] TAKE 1 TABLET BY MOUTH IN THE MORNING AND 1 TABLET IN THE EVENING WITH MEALS [facility] iopamidol (ISOVUE 370-500 mL) injection 90 mL 2023-09 19:00: 00 08-18 18:07 :00 No [id number] 90mL 90 mL, Intravenou s, ONCE, 1 dose, On Sun08/18/24 at 1300, Routine [facility] methenamine 1 gram tablet 2023-09 00:00: 00 Yes [id number] 1g Take 1 tablet by mouth in the morning and 1 tablet in the evening. Take with meals. [facility] cefdinir 300 mg capsule 2023-09 00:00: 00 08-13 05:59 :00 No [id number] 300mg Take 1 capsule by mouth every 12 (twelve) hours for 5 days. [facility] estradioL 0.01 % (0.1 mg/gram) vaginal cream 2023-09 00:00: 00 Yes [id number] Apply 0.5g (pea size) vaginally with fingertip nightly for two weeks and then twice per week (ie ) [facility] amiodarone 200 mg tablet 2023-09 00:00: 00 Yes [id number] 200mg TAKE 1 TABLET BY MOUTH IN THE MORNING [facility] donepeziL 5 mg tablet 2023-09 15:05: 14 Yes 5mg Take 1 tablet by mouth at bedtime. [facility] AMIODARONE 200 mg tablet 04-04 00:00: 00 07-03 00:00 :00 No [id number] 200mg TAKE 1 TABLET BY MOUTH IN THE MORNING [facility] aspirin 81 mg chewable tablet 8 09:05: 46 Yes 1 tablet [facility] Ondansetron 4 MG Ondansetron 4 MG 4-05 00:00: 00 No 1{table t_on_ e_caliu e_and_a llow_to _dissol ve} Ondansetro n 4 MG cholecalcif gilbert, vitamin D3, 25 mcg (1,000 unit) tablet 10-11 09:49: 16 Yes 1000U Take 1 tablet by mouth in the morning. [facility] Progesteron e Micronized (CRINONE) 4 % Gel 10-11 09:49: 16 Yes 1 applicatio n [facility] aspirin 81 mg chewable tablet 10-11 09:49: 16 Yes 1 tablet [facility] aspirin 81 mg chewable tablet 10-04 09:26: 29 Yes 1 tablet [facility] simvastatin 20 mg tablet 10-04 00:00: 00 Yes [id number] 20mg Take 1 tablet by mouth in the morning. [facility] amiodarone 200 mg tablet 2022-09 00:00: 00 04-04 00:00 :00 No [id number] 200mg Take 1 tablet by mouth in the morning. [facility] amiodarone 100 mg tablet 05-24 08:59: 07 05-24 00:00 :00 No 100mg Take 100 mg by mouth every 2 (two) days. [facility] SERTraline 25 mg tablet 05-24 08:39: 34 Yes 25mg Take 1 tablet by mouth in the morning. [facility] cholecalcif glibert, vitamin D3, 25 mcg (1,000 unit) tablet 05-24 08:39: 34 Yes 1000U Take 1 tablet by mouth in the morning. [facility] Progesteron e Micronized (CRINONE) 4 % Gel 05-24 08:39: 34 Yes 1 applicatio n [facility] denosumab (PROLIA) 60 mg/mL injection 05-24 08:39: 34 Yes not defined [facility] sulfur hexafluorid e microsphr (LUMASON) injection 5 mL 04-04 13:45: 00 04-04 13:35 :00 No [id number] 5mL 5 mL, Intravenou s, ONCE, 1 dose, On Sun04/04/23 at 0845, Routine
cruise staff member approving Restricted medication : SAMEER SILVA [facility] cefpodoxime 100 mg tablet 424 00:00: 00 01-02 04:59 :00 No [id number] 100mg Take 1 tablet by mouth in the morning and 1 tablet in the evening. Do all this for 7 days. [facility] aspirin 81 mg chewable tablet 10-04 12:38: 06 Yes 1 tablet [facility] amiodarone 100 mg tablet 10-04 12:38: 06 Yes 100mg Take 100 mg by mouth every 2 (two) days. [facility] ondansetron (ZOFRAN-ODT ) disintegrat ing tablet 4 mg 09-11 00:15: 00 09-10 23:13 :00 No 4mg 4 mg, Oral, ONCE, 1 dose, On Sun09/10/22 at 1815, Routine [facility] Progesteron e Micronized (CRINONE) 4 % Gel 09-10 18:15: 20 Yes 1 applicatio n [facility] denosumab (PROLIA) 60 mg/mL injection 09-10 18:15: 20 Yes not defined [facility] aspirin 81 mg chewable tablet 09-10 18:15: 20 Yes 1 tablet [facility] levothyroxi ne sodium (LEVOTHYROX INE ORAL) 09-10 18:15: 20 09-10 00:00 :00 No 88ug Take 88 mcg by mouth daily. [facility] SERTraline (ZOLOFT) 50 mg tablet 09-10 18:15: 20 09-10 00:00 :00 No 25mg Take 25 mg by mouth in the morning. [facility] magnesium chloride (SLOW-MAG ORAL) 09-10 17:08: 22 09-10 00:00 :00 No Take by mouth. [facility] Cranberry 400 mg Cap 09-10 17:08: 16 09-10 00:00 :00 No Take by mouth. [facility] ondansetron 4 mg disintegrat ing tablet 09-10 00:00: 00 Yes [id number] 4mg Take 1 tablet by mouth every 8 (eight) hours as needed for Nausea and Vomiting (N/V). [facility] levoFLOXaci n 750 mg tablet 09-10 00:00: 00 09-16 05:59 :00 No [id number] 750mg Take 1 tablet by mouth every 24 (twenty-fo ur) hours for 5 days. [facility] amiodarone 200 mg tablet 2021-09 00:00: 00 11-12 05:59 :00 No [id number] 100mg Take 0.5 tablets by mouth in the morning for 90 days. [facility] amiodarone 200 mg tablet 2021-09 00:00: 00 08-13 00:00 :00 No [id number] 100mg Take 0.5 tablets by mouth in the morning. [facility] amiodarone 200 mg tablet 05-01 00:00: 00 07-10 00:00 :00 No [id number] 100mg Take 0.5 tablets by mouth in the morning. [facility] SERTraline 25 mg tablet 03-20 10:28: 47 Yes 25mg Take 25 mg by mouth daily. [facility] cholecalcif gilbert, vitamin D3, 25 mcg (1,000 unit) tablet 03-20 10:28: 47 Yes 1000U Take 1,000 Units by mouth daily. [facility] Cranberry 400 mg Cap 03-20 10:28: 47 Yes Take by mouth. [facility] amiodarone 200 mg tablet 03-07 00:00: 00 05-01 00:00 :00 No [id number] 100mg Take 0.5 tablets by mouth every other day. [facility] EUTHYROX 88 mcg tablet 6-12 00:00: 00 Yes 88ug Take 1 tablet by mouth every morning. [facility] simvastatin 20 mg tablet 4-20 00:00: 00 10-04 00:00 :00 No 20mg Take 1 tablet by mouth in the morning. [facility] magnesium chloride (SLOW-MAG ORAL) 3-11 09:28: 07 Yes Take by mouth. [facility] Aspirin 81 MG Aspirin 81 MG 5-10 00:00: 00 No 1{table t} QD Aspirin 81 MG estradioL 0.01 % (0.1 mg/gram) vaginal cream 8-14 00:00: 00 07-30 00:00 :00 No as directed [facility] Levothyroxi ne Sodium 100 MCG Levothyroxi ne Sodium 100 MCG No QD Levothyrox ine Sodium 100 MCG Zoloft 50 MG Zoloft 50 MG No 1{table t} QD Zoloft 50 MG Ibandronate Sodium 150 MG Ibandronate Sodium 150 MG No Ibandronat e Sodium 150 MG Amiodarone HCl 200 MG Amiodarone HCl 200 MG No 1{table t} QD Amiodarone HCl 200 MG Donepezil HCl 5 MG Donepezil HCl 5 MG No 1{table t_at_be dtime} QD Donepezil HCl 5 MG Immunizations Ordered Immunization Name Filled Immunization Name Date Status Comments Source Influenza Virus Vaccine,quad Im,preserve Free 65+ 2022-06-01 00:00:00 Completed [facility] Influenza Virus Vaccine,quad Im,preserve Free 65+ 2022-06-01 00:00:00 Completed [facility] Influenza Virus Vaccine,quad Im,preserve Free 65+ 2022-06-01 00:00:00 Completed [facility] Influenza Virus Vaccine,quad Im,preserve Free 65+ 2022-06-01 00:00:00 Completed [facility] Influenza Virus Vaccine,quad Im,preserve Free 65+ 2022-06-01 00:00:00 Completed [facility] Influenza Virus Vaccine,quad Im,preserve Free 65+ 2022-06-01 00:00:00 Completed [facility] Influenza Virus Vaccine,quad Im,preserve Free 65+ 2022-06-01 00:00:00 Completed [facility] Influenza Virus Vaccine,quad Im,preserve Free 65+ 2022-06-01 00:00:00 Completed [facility] Influenza Virus Vaccine,quad Im,preserve Free 65+ 2022-06-01 00:00:00 Completed [facility] Influenza Virus Vaccine,quad Im,preserve Free 65+ 2022-06-01 00:00:00 Completed [facility] Influenza Virus Vaccine,quad Im,preserve Free 65+ 2022-06-01 00:00:00 Completed [facility] Influenza Virus Vaccine,quad Im,preserve Free 65+ 2022-06-01 00:00:00 Completed [facility] Influenza Virus Vaccine,quad Im,preserve Free 65+ 2022-06-01 00:00:00 Completed [facility] Influenza Virus Vaccine,quad Im,preserve Free 65+ 2022-06-01 00:00:00 Completed [facility] Influenza Virus Vaccine,quad Im,preserve Free 65+ (FLUAD) 2022-06-01 00:00:00 Completed [facility] Influenza Virus Vaccine,quad Im,preserve Free 65+ 2022-06-01 00:00:00 Completed [facility] Influenza Virus Vaccine,quad Im,preserve Free 65+ 2022-06-01 00:00:00 Completed [facility] Influenza Virus Vaccine,quad Im,preserve Free 65+ 2022-06-01 00:00:00 Completed [facility] Influenza Virus Vaccine,quad Im,preserve Free 65+ 2022-06-01 00:00:00 Completed [facility] Influenza Virus Vaccine,quad Im,preserve Free 65+ 2022-06-01 00:00:00 Completed [facility] Influenza Virus Vaccine,quad Im,preserve Free 65+ 2022-06-01 00:00:00 Completed [facility] Influenza Virus Vaccine,quad Im,preserve Free 65+ 2022-06-01 00:00:00 Completed [facility] FluAD FluAD 2021-07-03 08:05:00 Completed [facility] FluAD FluAD 2021-07-03 08:05:00 Completed [facility] FluAD FluAD 2021-07-03 08:05:00 Completed [facility] FluAD FluAD 2021-07-03 08:05:00 Completed [facility] FluAD FluAD 2021-07-03 08:05:00 Completed [facility] FluAD FluAD 2021-07-03 08:05:00 Completed [facility] FluAD FluAD 2021-07-03 08:05:00 Completed [facility] FluAD FluAD 2021-07-03 08:05:00 Completed [facility] Fluzone Fluzone 2020-05-25 10:22:00 Completed [facility] Fluzone Fluzone 2020-05-25 10:22:00 Completed [facility] Fluzone Fluzone 2020-05-25 10:22:00 Completed [facility] Fluzone Fluzone 2020-05-25 10:22:00 Completed [facility] Fluzone Fluzone 2020-05-25 10:22:00 Completed [facility] Fluzone Fluzone 2020-05-25 10:22:00 Completed [facility] Fluzone Fluzone 2020-05-25 10:22:00 Completed [facility] Fluzone Fluzone 2020-05-25 10:22:00 Completed [facility] Fluzone Fluzone 2020-05-25 10:22:00 Completed [facility] Influenza High Dose Quad 2020-05-25 00:00:00 Completed [facility] Influenza High Dose Quad 2020-05-25 00:00:00 Completed [facility] Influenza High Dose Quad 2020-05-25 00:00:00 Completed [facility] Influenza High Dose Quad 2020-05-25 00:00:00 Completed [facility] Influenza High Dose Quad 2020-05-25 00:00:00 Completed [facility] Influenza High Dose Quad 2020-05-25 00:00:00 Completed [facility] Influenza High Dose Quad 2020-05-25 00:00:00 Completed [facility] Influenza High Dose Quad 2020-05-25 00:00:00 Completed [facility] Influenza High Dose Quad 2020-05-25 00:00:00 Completed [facility] Influenza High Dose Quad 2020-05-25 00:00:00 Completed [facility] Influenza High Dose Quad 2020-05-25 00:00:00 Completed [facility] Influenza High Dose Quad 2020-05-25 00:00:00 Completed [facility] Influenza High Dose Quad 2020-05-25 00:00:00 Completed [facility] Influenza High Dose Quad 2020-05-25 00:00:00 Completed [facility] Influenza High Dose Quad 2020-05-25 00:00:00 Completed [facility] Influenza High Dose Quad 2020-05-25 00:00:00 Completed [facility] Influenza High Dose Quad 2020-05-25 00:00:00 Completed [facility] Influenza High Dose Quad 2020-05-25 00:00:00 Completed [facility] Influenza High Dose Quad 2020-05-25 00:00:00 Completed [facility] Influenza High Dose Quad 2020-05-25 00:00:00 Completed [facility] Influenza High Dose Quad 2020-05-25 00:00:00 Completed [facility] Influenza High Dose Quad 2020-05-25 00:00:00 Completed [facility] Influenza High Dose Quad 2020-05-25 00:00:00 Completed [facility] Influenza High Dose Quad 2020-05-25 00:00:00 Completed [facility] Prevnar 13 -Pneumonia Vaccine Prevnar 13 -Pneumonia Vaccine 2019-02-03 16:38:00 Completed [facility] Prevnar 13 -Pneumonia Vaccine Prevnar 13 -Pneumonia Vaccine 2019-02-03 16:38:00 Completed [facility] Prevnar 13 -Pneumonia Vaccine Prevnar 13 -Pneumonia Vaccine 2019-02-03 16:38:00 Completed [facility] Prevnar 13 -Pneumonia Vaccine Prevnar 13 -Pneumonia Vaccine 2019-02-03 16:38:00 Completed [facility] Prevnar 13 -Pneumonia Vaccine Prevnar 13 -Pneumonia Vaccine 2019-02-03 16:38:00 Completed [facility] Prevnar 13 -Pneumonia Vaccine Prevnar 13 -Pneumonia Vaccine 2019-02-03 16:38:00 Completed [facility] Prevnar 13 -Pneumonia Vaccine Prevnar 13 -Pneumonia Vaccine 2019-02-03 16:38:00 Completed [facility] Prevnar 13 -Pneumonia Vaccine Prevnar 13 -Pneumonia Vaccine 2019-02-03 16:38:00 Completed [facility] Prevnar 13 -Pneumonia Vaccine Prevnar 13 -Pneumonia Vaccine 2019-02-03 16:38:00 Completed [facility] Influenza High Dose Quad Unknown Completed [facility] Influenza Virus Vaccine,quad Im,preserve Free 65+ (FLUAD) Unknown Completed [facility] Influenza High Dose Quad Unknown Completed [facility] Influenza Virus Vaccine,quad Im,preserve Free 65+ (FLUAD) Unknown Completed [facility] Influenza High Dose Quad Unknown Completed [facility] Influenza Virus Vaccine,quad Im,preserve Free 65+ (FLUAD) Unknown Completed [facility] Influenza High Dose Quad Unknown Completed [facility] Influenza Virus Vaccine,quad Im,preserve Free 65+ (FLUAD) Unknown Completed [facility] Influenza High Dose Quad Unknown Completed [facility] Influenza Virus Vaccine,quad Im,preserve Free 65+ (FLUAD) Unknown Completed [facility] Influenza High Dose Quad Unknown Completed [facility] Influenza Virus Vaccine,quad Im,preserve Free 65+ (FLUAD) Unknown Completed [facility] Influenza High Dose Quad Unknown Completed [facility] Influenza Virus Vaccine,quad Im,preserve Free 65+ (FLUAD) Unknown Completed [facility] Influenza High Dose Quad Unknown Completed [facility] Influenza Virus Vaccine,quad Im,preserve Free 65+ (FLUAD) Unknown Completed [facility] Influenza High Dose Quad Unknown Completed [facility] Influenza Virus Vaccine,quad Im,preserve Free 65+ (FLUAD) Unknown Completed [facility] Influenza High Dose Quad Unknown Completed [facility] Influenza Virus Vaccine,quad Im,preserve Free 65+ (FLUAD) Unknown Completed [facility] Influenza High Dose Quad Unknown Completed [facility] Influenza Virus Vaccine,quad Im,preserve Free 65+ (FLUAD) Unknown Completed [facility] Influenza High Dose Quad Unknown Completed [facility] Influenza Virus Vaccine,quad Im,preserve Free 65+ (FLUAD) Unknown Completed [facility] Influenza High Dose Quad Unknown Completed [facility] Influenza Virus Vaccine,quad Im,preserve Free 65+ (FLUAD) Unknown Completed [facility] Influenza High Dose Quad Unknown Completed [facility] Influenza Virus Vaccine,quad Im,preserve Free 65+ (FLUAD) Unknown Completed [facility] Influenza High Dose Quad Unknown Completed [facility] Influenza Virus Vaccine,quad Im,preserve Free 65+ (FLUAD) Unknown Completed [facility] Influenza High Dose Quad Unknown Completed [facility] Influenza Virus Vaccine,quad Im,preserve Free 65+ (FLUAD) Unknown Completed [facility] Influenza High Dose Quad Unknown Completed [facility] Influenza Virus Vaccine,quad Im,preserve Free 65+ (FLUAD) Unknown Completed [facility] Influenza High Dose Quad Unknown Completed [facility] Influenza Virus Vaccine,quad Im,preserve Free 65+ (FLUAD) Unknown Completed [facility] Influenza High Dose Quad Unknown Completed [facility] Influenza Virus Vaccine,quad Im,preserve Free 65+ (FLUAD) Unknown Completed [facility] Prevnar 20 (PCV20) Prevnar 20 (PCV20) Unknown Completed [facility] FluAD FluAD Unknown Completed [facility] Fluzone Fluzone Unknown Completed [facility] Prevnar 13 -Pneumonia Vaccine Prevnar 13 -Pneumonia Vaccine Unknown Completed [facility] Prevnar 20 (PCV20) Prevnar 20 (PCV20) Unknown Completed [facility] FluAD FluAD Unknown Completed [facility] Fluzone Fluzone Unknown Completed [facility] Prevnar 13 -Pneumonia Vaccine Prevnar 13 -Pneumonia Vaccine Unknown Completed [facility] Prevnar 20 (PCV20) Prevnar 20 (PCV20) Unknown Completed [facility] FluAD FluAD Unknown Completed [facility] Fluzone Fluzone Unknown Completed [facility] Prevnar 13 -Pneumonia Vaccine Prevnar 13 -Pneumonia Vaccine Unknown Completed [facility] Prevnar 20 (PCV20) Prevnar 20 (PCV20) Unknown Completed [facility] FluAD FluAD Unknown Completed [facility] Fluzone Fluzone Unknown Completed [facility] Prevnar 13 -Pneumonia Vaccine Prevnar 13 -Pneumonia Vaccine Unknown Completed [facility] Prevnar 20 (PCV20) Prevnar 20 (PCV20) Unknown Completed [facility] FluAD FluAD Unknown Completed [facility] Fluzone Fluzone Unknown Completed [facility] Prevnar 13 -Pneumonia Vaccine Prevnar 13 -Pneumonia Vaccine Unknown Completed [facility] Prevnar 20 (PCV20) Prevnar 20 (PCV20) Unknown Completed [facility] FluAD FluAD Unknown Completed [facility] Fluzone Fluzone Unknown Completed [facility] Prevnar 13 -Pneumonia Vaccine Prevnar 13 -Pneumonia Vaccine Unknown Completed [facility] Prevnar 20 (PCV20) Prevnar 20 (PCV20) Unknown Completed [facility] FluAD FluAD Unknown Completed [facility] Fluzone Fluzone Unknown Completed [facility] Prevnar 13 -Pneumonia Vaccine Prevnar 13 -Pneumonia Vaccine Unknown Completed [facility] Prevnar 20 (PCV20) Prevnar 20 (PCV20) Unknown Completed [facility] FluAD FluAD Unknown Completed [facility] Fluzone Fluzone Unknown Completed [facility] Prevnar 13 -Pneumonia Vaccine Prevnar 13 -Pneumonia Vaccine Unknown Completed [facility] Prevnar 20 (PCV20) Prevnar 20 (PCV20) Unknown Completed [facility] FluAD FluAD Unknown Completed [facility] Fluzone Fluzone Unknown Completed [facility] Prevnar 13 -Pneumonia Vaccine Prevnar 13 -Pneumonia Vaccine Unknown Completed [facility] Prevnar 20 (PCV20) Prevnar 20 (PCV20) Unknown Completed [facility] FluAD FluAD Unknown Completed [facility] Fluzone Fluzone Unknown Completed [facility] Prevnar 13 -Pneumonia Vaccine Prevnar 13 -Pneumonia Vaccine Unknown Completed [facility] Prevnar 20 (PCV20) Prevnar 20 (PCV20) Unknown Completed [facility] FluAD FluAD Unknown Completed [facility] Fluzone Fluzone Unknown Completed [facility] Prevnar 13 -Pneumonia Vaccine Prevnar 13 -Pneumonia Vaccine Unknown Completed [facility] Prevnar 20 (PCV20) Prevnar 20 (PCV20) Unknown Completed [facility] FluAD FluAD Unknown Completed [facility] Fluzone Fluzone Unknown Completed [facility] Prevnar 13 -Pneumonia Vaccine Prevnar 13 -Pneumonia Vaccine Unknown Completed [facility] Fluad (aIIV4) - SDS - 0.5mL Fluad (aIIV4) - SDS - 0.5mL Unknown Completed [facility] FluAD FluAD Unknown Completed [facility] Fluzone Fluzone Unknown Completed [facility] Prevnar 13 -Pneumonia Vaccine Prevnar 13 -Pneumonia Vaccine Unknown Completed [facility] FluAD FluAD Unknown Completed [facility] Fluzone Fluzone Unknown Completed [facility] Prevnar 13 -Pneumonia Vaccine Prevnar 13 -Pneumonia Vaccine Unknown Completed [facility] FluAD FluAD Unknown Completed [facility] Fluzone Fluzone Unknown Completed [facility] Prevnar 13 -Pneumonia Vaccine Prevnar 13 -Pneumonia Vaccine Unknown Completed [facility] FluAD FluAD Unknown Completed [facility] Fluzone Fluzone Unknown Completed [facility] Prevnar 13 -Pneumonia Vaccine Prevnar 13 -Pneumonia Vaccine Unknown Completed [facility] FluAD FluAD Unknown Completed [facility] Fluzone Fluzone Unknown Completed [facility] Prevnar 13 -Pneumonia Vaccine Prevnar 13 -Pneumonia Vaccine Unknown Completed [facility] FluAD FluAD Unknown Completed [facility] Fluzone Fluzone Unknown Completed [facility] Prevnar 13 -Pneumonia Vaccine Prevnar 13 -Pneumonia Vaccine Unknown Completed [facility] Prevnar 20 (PCV20) Prevnar 20 (PCV20) Unknown Completed [facility] FluAD FluAD Unknown Completed [facility] Fluzone Fluzone Unknown Completed [facility] Prevnar 13 -Pneumonia Vaccine Prevnar 13 -Pneumonia Vaccine Unknown Completed [facility] Prevnar 20 (PCV20) Prevnar 20 (PCV20) Unknown Completed [facility] FluAD FluAD Unknown Completed [facility] Fluzone Fluzone Unknown Completed [facility] Prevnar 13 -Pneumonia Vaccine Prevnar 13 -Pneumonia Vaccine Unknown Completed [facility] Prevnar 20 (PCV20) Prevnar 20 (PCV20) Unknown Completed [facility] FluAD FluAD Unknown Completed [facility] Fluzone Fluzone Unknown Completed [facility] Prevnar 13 -Pneumonia Vaccine Prevnar 13 -Pneumonia Vaccine Unknown Completed [facility] Vital Signs Vital Name Observation Time Observation Value Comments S patricia Systolic blood pressure 2024-11-04 15:29:00 146 mm[Hg] [facility] Diastolic blood pressure 2024-11-04 15:29:00 70 mm[Hg] [facility] Heart rate 2024-11-04 15:29:00 61 /min [facility] Oxygen saturation in Arterial blood by Pulse oximetry 2024-11-04 15:29:00 100 /min [facility] Body temperature 2024-11-04 15:28:00 36.28 Leesa [facility] Respiratory rate 2024-11-04 15:28:00 16 /min [facility] Body weight 2024-11-04 15:28:00 56.7 kg [facility] BMI 2024-11-04 15:28:00 22.14 kg/m2 [facility] height 2024-10-27 09:40:00 64 [in_i] Commo n [facility] weight 2024-10-27 09:40:00 127 [lb_av] Comm on [facility] temperature 2024-10-27 09:40:00 97.3 [degF] Com mon [facility] bmi 2024-10-27 09:40:00 21.8 kg/m2 [facility] oximetry 2024-10-27 09:40:00 97 % [facility] respiratory rate 2024-10-27 09:40:00 16 /min [facility] blood pressure systolic 2024-10-27 09:40:00 110 mm[Hg] [facility] blood pressure diastolic 2024-10-27 09:40:00 67 mm[Hg] [facility] Systolic blood pressure 2024-10-23 17:50:00 169 mm[Hg] [facility] Diastolic blood pressure 2024-10-23 17:50:00 74 mm[Hg] [facility] Heart rate 2024-10-23 17:50:00 59 /[facility] Body temperature 2024-10-23 17:50:00 36.72 Leesa [facility] Respiratory rate 2024-10-23 17:50:00 12 /min [facility] Oxygen saturation in Arterial blood by Pulse oximetry 2024-10-23 17:50:00 99 /min [facility] Body height 2024-10-23 15:41:00 160 cm [facility] Body weight 2024-10-23 15:41:00 56.7 kg [facility] BMI 2024-10-23 15:41:00 22.14 kg/m2 [facility] Systolic blood pressure 2024-10-23 15:15:00 134 mm[Hg] [facility] Diastolic blood pressure 2024-10-23 15:15:00 70 mm[Hg] [facility] Heart rate 2024-10-23 15:15:00 64 /min [facility] 2024-10-23 15:15:00 36.33 Leesa [facility] Respiratory rate 2024-10-23 15:15:00 16 /min [facility] Body height 2024-10-23 15:15:00 160 cm per pt [facility] Body weight 2024-10-23 15:15:00 57.698 kg [facility] BMI 2024-10-23 15:15:00 22.53 kg/m2 [facility] Oxygen saturation in Arterial blood by Pulse oximetry 2024-10-23 15:15:00 100 /min [facility] height 2024-09-18 09:00:00 64 [in_i] Commo n [facility] weight 2024-09-18 09:00:00 126.0 [lb_av] Co mmon [facility] temperature 2024-09-18 09:00:00 97.2 [degF] Com mon [facility] bmi 2024-09-18 09:00:00 21.63 kg/m2 Comm on [facility] oximetry 2024-09-18 09:00:00 99 % Commo n [facility] respiratory rate 2024-09-18 09:00:00 16 /min [facility] blood pressure systolic 2024-09-18 09:00:00 118 mm[Hg] [facility] blood pressure diastolic 2024-09-18 09:00:00 64 mm[Hg] [facility] height 2024-09-02 11:40:00 64 [in_i] Commo n [facility] weight 2024-09-02 11:40:00 125 [lb_av] Comm on [facility] bmi 2024-09-02 11:40:00 21.45 kg/m2 Comm on [facility] Systolic blood pressure 2024-07-30 21:32:00 135 mm[Hg] [facility] Diastolic blood pressure 2024-07-30 21:32:00 70 mm[Hg] [facility] Heart rate 2024-07-30 21:32:00 59 /min [facility] Body temperature 2024-07-30 21:32:00 36.56 Leesa [facility] Respiratory rate 2024-07-30 21:32:00 12 /min [facility] Body height 2024-07-30 21:32:00 160 cm [facility] Body weight 2024-07-30 21:32:00 57.38 kg [facility] BMI 2024-07-30 21:32:00 22.41 kg/m2 [facility] Oxygen saturation in Arterial blood by Pulse oximetry 2024-07-30 21:32:00 99 /min [facility] Systolic blood pressure 2024-06-25 19:54:00 118 mm[Hg] [facility] Diastolic blood pressure 2024-06-25 19:54:00 68 mm[Hg] [facility] Heart rate 2024-06-25 19:54:00 59 /min [facility] Body temperature 2024-06-25 19:54:00 36.39 Leesa [facility] Respiratory rate 2024-06-25 19:54:00 14 /min [facility] Body height 2024-06-25 19:54:00 160 cm [facility] Body weight 2024-06-25 19:54:00 57.017 kg [facility] BMI 2024-06-25 19:54:00 22.27 kg/m2 [facility] Oxygen saturation in Arterial blood by Pulse oximetry 2024-06-25 19:54:00 97 /min [facility] height 2024-05-19 08:10:00 64 [in_i] Commo n [facility] weight 2024-05-19 08:10:00 128 [lb_av] Comm on [facility] temperature 2024-05-19 08:10:00 97.2 [degF] Com mon [facility] bmi 2024-05-19 08:10:00 21.97 kg/m2 Comm on [facility] oximetry 2024-05-19 08:10:00 99 % Commo n [facility] blood pressure systolic 2024-05-19 08:10:00 112 mm[Hg] [facility] blood pressure diastolic 2024-05-19 08:10:00 66 mm[Hg] [facility] height 2024-05-19 08:10:00 64 [in_i] Commo n [facility] weight 2024-05-19 08:10:00 128 [lb_av] Comm on [facility] temperature 2024-05-19 08:10:00 97.2 [degF] Com mon [facility] bmi 2024-05-19 08:10:00 21.97 kg/m2 Comm on [facility] oximetry 2024-05-19 08:10:00 99 % Commo n [facility] blood pressure systolic 2024-05-19 08:10:00 112 mm[Hg] [facility] blood pressure diastolic 2024-05-19 08:10:00 66 mm[Hg] [facility] Systolic blood pressure 2024-04-17 15:53:00 101 mm[Hg] [facility] Diastolic blood pressure 2024-04-17 15:53:00 63 mm[Hg] [facility] Heart rate 2024-04-17 15:53:00 66 /min [facility] Respiratory rate 2024-04-17 15:53:00 14 /min [facility] Body height 2024-04-17 15:53:00 160 cm [facility] Body weight 2024-04-17 15:53:00 60.499 kg [facility] BMI 2024-04-17 15:53:00 23.63 kg/m2 [facility] Oxygen saturation in Arterial blood by Pulse oximetry 2024-04-17 15:53:00 99 /min [facility] Systolic blood pressure 2024-04-03 13:57:00 133 mm[Hg] [facility] Diastolic blood pressure 2024-04-03 13:57:00 69 mm[Hg] [facility] Heart rate 2024-04-03 13:57:00 62 /min [facility] Res[facility] rate 2024-04-03 13:57:00 14 /min [facility] Body height 2024-04-03 13:57:00 160 cm [facility] Body weight 2024-04-03 13:57:00 61.372 kg [facility] BMI 2024-04-03 13:57:00 23.97 kg/m2 [facility] Oxygen saturation in Arterial blood by Pulse oximetry 2024-04-03 13:57:00 99 /min [facility] height 2023-12-07 08:50:00 64 [in_i] Commo n [facility] weight 2023-12-07 08:50:00 143.6 [lb_av] Co mmon [facility] bmi 2023-12-07 08:50:00 24.65 kg/m2 Comm on [facility] oximetry 2023-12-07 08:50:00 99 % Commo n [facility] respiratory rate 2023-12-07 08:50:00 18 /min [facility] blood pressure systolic 2023-12-07 08:50:00 129 mm[Hg] [facility] blood pressure diastolic 2023-12-07 08:50:00 69 mm[Hg] [facility] height 2023-12-07 08:50:00 64 [in_i] Commo n [facility] weight 2023-12-07 08:50:00 143.6 [lb_av] Co mmon [facility] bmi 2023-12-07 08:50:00 24.65 kg/m2 Comm on [facility] oximetry 2023-12-07 08:50:00 99 % Commo n [facility] respiratory rate 2023-12-07 08:50:00 18 /min [facility] blood pressure systolic 2023-12-07 08:50:00 129 mm[Hg] [facility] blood pressure diastolic 2023-12-07 08:50:00 69 mm[Hg] [facility] height 2023-12-07 08:50:00 64 [in_i] Commo n [facility] weight 2023-12-07 08:50:00 143.6 [lb_av] Co mmon [facility] bmi 2023-12-07 08:50:00 24.65 kg/m2 Comm on [facility] oximetry 2023-12-07 08:50:00 99 % Commo n [facility] respiratory rate 2023-12-07 08:50:00 18 /min [facility] blood pressure systolic 2023-12-07 08:50:00 129 mm[Hg] [facility] blood pressure diastolic 2023-12-07 08:50:00 69 mm[Hg] [facility] Systolic blood pressure 2023-10-11 15:47:00 113 mm[Hg] [facility] Diastolic blood pressure 2023-10-11 15:47:00 69 mm[Hg] [facility] Heart rate 2023-10-11 15:47:00 69 /min [facility] Body temperature 2023-10-11 15:47:00 36.39 Le[facility] Respiratory rate 2023-10-11 15:47:00 16 /min [facility] Body height 2023-10-11 15:47:00 160 cm [facility] Body weight 2023-10-11 15:47:00 65.318 kg [facility] BMI 2023-10-11 15:47:00 25.51 kg/m2 [facility] Oxygen saturation in Arterial blood by Pulse oximetry 2023-10-11 15:47:00 99 /min [facility] Systolic blood pressure 2023-10-04 14:44:00 131 mm[Hg] [facility] Diastolic blood pressure 2023-10-04 14:44:00 73 mm[Hg] [facility] Heart rate 2023-10-04 14:44:00 69 /min [facility] Body temperature 2023-10-04 14:44:00 36.39 Leesa [facility] Respiratory rate 2023-10-04 14:44:00 18 /min [facility] Body height 2023-10-04 14:44:00 160 cm [facility] Body weight 2023-10-04 14:44:00 66.18 kg [facility] BMI 2023-10-04 14:44:00 25.85 kg/m2 [facility] Oxygen saturation in Arterial blood by Pulse oximetry 2023-10-04 14:44:00 99 /min [facility] Systolic blood pressure 2023-08-09 18:54:00 107 mm[Hg] [facility] Diastolic blood pressure 2023-08-09 18:54:00 63 mm[Hg] [facility] Heart rate 2023-08-09 18:54:00 64 /min [facility] Body temperature 2023-08-09 18:54:00 36.89 Leesa [facility] Respiratory rate 2023-08-09 18:54:00 19 /min [facility] Body height 2023-08-09 18:54:00 160 cm [facility] Body weight 2023-08-09 18:54:00 68.448 kg [facility] BMI 2023-08-09 18:54:00 26.73 kg/m2 [facility] Oxygen saturation in Arterial blood by Pulse oximetry 2023-08-09 18:54:00 98 /min [facility] height 2023-08-08 08:30:00 64 [in_i] Commo n [facility] weight 2023-08-08 08:30:00 146.4 [lb_av] Co mmon [facility] temperature 2023-08-08 08:30:00 97.7 [degF] Com mon [facility] bmi 2023-08-08 08:30:00 25.13 kg/m2 Comm on [facility] oximetry 2023-08-08 08:30:00 99 % [facility] blood pressure systolic 2023-08-08 08:30:00 136 mm[Hg] [facility] blood pressure diastolic 2023-08-08 08:30:00 62 mm[Hg] [facility] Systolic blood pressure 2023-05-24 13:40:00 135 mm[Hg] [facility] Diastolic blood pressure 2023-05-24 13:40:00 77 mm[Hg] [facility] Heart rate 2023-05-24 13:40:00 76 /min [facility] Body height 2023-05-24 13:40:00 160 cm [facility] Body weight 2023-05-24 13:40:00 69.128 kg [facility] BMI 2023-05-24 13:40:00 27.00 kg/m2 [facility] Oxygen saturation in Arterial blood by Pulse oximetry 2023-05-24 13:40:00 98 /min [facility] height 2023-04-19 09:20:00 64 [in_i] Commo n [facility] weight 2023-04-19 09:20:00 151.4 [lb_av] Co mmon [facility] temperature 2023-04-19 09:20:00 97.2 [degF] Com mon [facility] bmi 2023-04-19 09:20:00 25.98 kg/m2 Comm on [facility] oximetry 2023-04-19 09:20:00 100 % Commo n [facility] respiratory rate 2023-04-19 09:20:00 16 /min [facility] blood pressure systolic 2023-04-19 09:20:00 142 mm[Hg] [facility] blood pressure diastolic 2023-04-19 09:20:00 66 mm[Hg] [facility] height 2023-03-22 08:20:00 64 [in_i] Commo n [facility] weight 2023-03-22 08:20:00 154.0 [lb_av] Co mmon [facility] temperature 2023-03-22 08:20:00 97.5 [degF] Com [facility] bmi 2023-03-22 08:20:00 26.43 kg/m2 Comm on [facility] oximetry 2023-03-22 08:20:00 99 % Commo n [facility] respiratory rate 2023-03-22 08:20:00 18 /min [facility] blood pressure systolic 2023-03-22 08:20:00 123 mm[Hg] [facility] blood pressure diastolic 2023-03-22 08:20:00 65 mm[Hg] [facility] Systolic blood pressure 2022-12-25 09:00:00 146 mm[Hg] [facility] Diastolic blood pressure 2022-12-25 09:00:00 74 mm[Hg] [facility] Heart rate 2022-12-25 09:00:00 63 /min [facility] Oxygen saturation in Arterial blood by Pulse oximetry 2022-12-25 09:00:00 96 /min [facility] Body temperature 2022-12-25 08:18:00 37.06 Le[place] [facility] Respiratory rate 2022-12-25 08:18:00 16 /min [facility] Body height 2022-12-25 08:18:00 160 cm [facility] Body weight 2022-12-25 08:18:00 68.04 kg [facility] BMI 2022-12-25 08:18:00 26.57 kg/m2 [facility] height 2022-11-21 08:00:00 64 [in_i] Commo n [facility] weight 2022-11-21 08:00:00 152.4 [lb_av] Co [facility] temperature 2022-11-21 08:00:00 96.5 [degF] Com [facility] bmi 2022-11-21 08:00:00 26.16 kg/m2 Comm on [facility] oximetry 2022-11-21 08:00:00 99 % Commo n [facility] respiratory rate 2022-11-21 08:00:00 16 /min [facility] blood pressure systolic 2022-11-21 08:00:00 138 mm[Hg] [facility] blood pressure diastolic 2022-11-21 08:00:00 79 mm[Hg] [facility] height 2022-11-21 08:00:00 64 [in_i] Commo n [facility] weight 2022-11-21 08:00:00 152.4 [lb_av] Co mmon [facility] temperature 2022-11-21 08:00:00 96.5 [degF] Com [facility] bmi 2022-11-21 08:00:00 26.16 kg/m2 Comm on [facility] oximetry 2022-11-21 08:00:00 99 % Commo n [facility] respiratory rate 2022-11-21 08:00:00 16 /min [facility] blood pressure systolic 2022-11-21 08:00:00 138 mm[Hg] [facility] blood pressure diastolic 2022-11-21 08:00:00 79 mm[Hg] [facility] Systolic blood pressure 2022-10-04 16:53:00 145 mm[Hg] [facility] Diastolic blood pressure 2022-10-04 16:53:00 75 mm[Hg] [facility] Heart rate 2022-10-04 16:53:00 68 /min [facility] Body temperature 2022-10-04 16:51:00 35.72 Leesa [facility] Respiratory rate 2022-10-04 16:51:00 17 /min [facility] Body height 2022-10-04 16:51:00 160 cm [facility] Body weight 2022-10-04 16:51:00 69.446 kg [facility] BMI 2022-10-04 16:51:00 27.12 kg/m2 [facility] Oxygen saturation in Arterial blood by Pulse oximetry 2022-10-04 16:51:00 100 /min [facility] Systolic blood pressure 2022-09-10 22:36:00 126 mm[Hg] [facility] Diastolic blood pressure 2022-09-10 22:36:00 75 mm[Hg] [facility] Heart rate 2022-09-10 22:36:00 77 /min [facility] Body temperature 2022-09-10 22:36:00 37.28 Leesa [facility] Respiratory rate 2022-09-10 22:36:00 16 /min [facility] Body height 2022-09-10 22:36:00 160 cm [facility] Body weight 2022-09-10 22:36:00 68.04 kg [facility] BMI 2022-09-10 22:36:00 26.57 kg/m2 [facility] Oxygen saturation in Arterial blood by Pulse oximetry 2022-09-10 22:36:00 100 /min [facility] height 2022-07-24 08:00:00 64 [in_i] Commo n [facility] weight 2022-07-24 08:00:00 154.8 [lb_av] Co on [facility] temperature 2022-07-24 08:00:00 96.6 [degF] Com mon [facility] bmi 2022-07-24 08:00:00 26.57 kg/m2 Comm on [facility] oximetry 2022-07-24 08:00:00 98 % Commo n [facility] respiratory rate 2022-07-24 08:00:00 18 /min [facility] blood pressure systolic 2022-07-24 08:00:00 119 mm[Hg] [facility] blood pressure diastolic 2022-07-24 08:00:00 67 mm[Hg] [facility] Systolic blood pressure 2022-06-01 13:45:00 105 mm[Hg] [facility] Diastolic blood pressure 2022-06-01 13:45:00 66 mm[Hg] [facility] Heart rate 2022-06-01 13:45:00 62 /min [facility] Body temperature 2022-06-01 13:45:00 35.61 Leesa [facility] Respiratory rate 2022-06-01 13:45:00 18 /min [facility] Body height 2022-06-01 13:45:00 160 cm [facility] Body weight 2022-06-01 13:45:00 68.901 kg [facility] BMI 2022-06-01 13:45:00 26.91 kg/m2 [facility] Oxygen saturation in Arterial blood by Pulse oximetry 2022-06-01 13:45:00 100 /min [facility] height 2022-03-22 08:45:00 64 [in_i] Commo n [facility] weight 2022-03-22 08:45:00 150.2 [lb_av] Co on [facility] temperature 2022-03-22 08:45:00 97.8 [degF] Com [facility] bmi 2022-03-22 08:45:00 25.78 kg/m2 Comm on [facility] oximetry 2022-03-22 08:45:00 96 % Commo n [facility] respiratory rate 2022-03-22 08:45:00 16 /min [facility] blood pressure systolic 2022-03-22 08:45:00 153 mm[Hg] [facility] blood pressure diastolic 2022-03-22 08:45:00 67 mm[Hg] [facility] height 2022-03-21 08:40:00 64 [in_i] Commo n [facility] weight 2022-03-21 08:40:00 148.6 [facility]lb_av] [facility] 2022-03-21 08:40:00 97.9 [degF] Com [facility] bmi 2022-03-21 08:40:00 25.5 kg/m2 Commo n [facility] oximetry 2022-03-21 08:40:00 96 % Commo n [facility] respiratory rate 2022-03-21 08:40:00 17 /min [facility] blood pressure systolic 2022-03-21 08:40:00 134 mm[Hg] [facility] blood pressure diastolic 2022-03-21 08:40:00 66 mm[Hg] [facility] height 2021-12-19 14:15:00 64 [in_i] Commo n [facility] weight 2021-12-19 14:15:00 148.6 [lb_av] Co [facility] temperature 2021-12-19 14:15:00 98.6 [degF] Com [facility] bmi 2021-12-19 14:15:00 25.5 kg/m2 Commo n [facility] oximetry 2021-12-19 14:15:00 98 % Commo n [facility] respiratory rate 2021-12-19 14:15:00 16 /min Common [facility] blood pressure systolic 2021-12-19 14:15:00 109 mm[Hg] Common [facility] blood pressure diastolic 2021-12-19 14:15:00 56 mm[Hg] [facility] height 2021-11-22 08:20:00 64 [in_i] Commo n [facility] weight 2021-11-22 08:20:00 149.8 [lb_av] Co [facility] temperature 2021-11-22 08:20:00 97.0 [degF] Com [facility] bmi 2021-11-22 08:20:00 25.71 kg/m2 Comm on [facility] oximetry 2021-11-22 08:20:00 97 % Commo n [facility] respiratory rate 2021-11-22 08:20:00 17 /min Common [facility] blood pressure systolic 2021-11-22 08:20:00 133 mm[Hg] Common [facility] blood pressure diastolic 2021-11-22 08:20:00 71 mm[Hg] Common [facility] height 2021-11-22 08:30:00 64 [in_i] Commo n [facility] weight 2021-11-22 08:30:00 149.8 [lb_av] Co mmon [facility] temperature 2021-11-22 08:30:00 97.0 [degF] Com [facility] bmi 2021-11-22 08:30:00 25.71 kg/m2 Comm on [facility] oximetry 2021-11-22 08:30:00 97 % Commo n [facility] respiratory rate 2021-11-22 08:30:00 17 /min Common [facility] blood pressure systolic 2021-11-22 08:30:00 133 mm[Hg] [facility] blood pressure diastolic 2021-11-22 08:30:00 71 mm[Hg] [facility] height 2021-08-16 08:00:00 64 [in_i] Commo n [facility] weight 2021-08-16 08:00:00 147.7 [lb_av] Co on [facility] temperature 2021-08-16 08:00:00 98.1 [degF] Com [facility] bmi 2021-08-16 08:00:00 25.35 kg/m2 Comm on [facility] oximetry 2021-08-16 08:00:00 98 % Commo n [facility] respiratory rate 2021-08-16 08:00:00 17 /min [facility] blood pressure systolic 2021-08-16 08:00:00 123 mm[Hg] [facility] blood pressure diastolic 2021-08-16 08:00:00 67 mm[Hg] Common [facility] height 2021-04-26 09:20:00 64 [in_i] Commo n [facility] weight 2021-04-26 09:20:00 142.7 [lb_av] Co mmon [facility] temperature 2021-04-26 09:20:00 96.3 [degF] Com [facility] bmi 2021-04-26 09:20:00 24.49 kg/m2 Comm on [facility] oximetry 2021-04-26 09:20:00 97 % Commo n [facility] blood pressure systolic 2021-04-26 09:20:00 103 mm[Hg] [facility] blood pressure diastolic 2021-04-26 09:20:00 61 mm[Hg] [facility] height 2021-04-19 10:50:00 64 [in_i] Commo n [facility] weight 2021-04-19 10:50:00 142.7 [lb_av] Co mmon [facility] temperature 2021-04-19 10:50:00 97.7 [degF] Com mon [facility] bmi 2021-04-19 10:50:00 24.49 kg/m2 Comm on [facility] oximetry 2021-04-19 10:50:00 98 % Commo n [facility] respiratory rate 2021-04-19 10:50:00 16 /min Common [facility] blood pressure systolic 2021-04-19 10:50:00 121 mm[Hg] [facility] blood pressure diastolic 2021-04-19 10:50:00 60 mm[Hg] [facility] Procedures Procedure Date / Time Performed Performing Clinician Source MARC,POST-VOID RES,US,NON-IMAGING 2024-11-04 15:38:00 Ramon Bell [facility] POCT URINALYSIS AUTO 2024-11-04 15:37:00 Boyd Bell [facility] MAGNESIUM 2024-10-23 16:18:00 Arsh Mclean [facility] COMP. METABOLIC PANEL (42975) 2024-10-23 16:18:00 Arsh Mclean [facility] CBC WITH DIFF 2024-10-23 16:18:00 Arsh Mclean [facility] URINALYSIS 2024-10-23 16:10:00 Arsh Mclean [facility] CT HEAD WO CONTRAST 2024-10-23 16:03:00 Luther Mclean [facility] US RETROPERITONEAL COMPLETE 2024-08-12 16:34:11 Edgard Grubbs [facility] MARC,POST-VOID RES,US,NON-IMAGING 2024-07-30 21:37:00 Edgard Grubbs [facility] BI DIAGNOSTIC TOMOSYNTHESIS RIGHT 2024-05-07 14:53:43 Requisition, Paper [facility] XR CHEST 2 VW 2024-04-03 15:06:00 Sameer Silva [facility] BI DIAGNOSTIC TOMOSYNTHESIS BILATERAL 2023-11-07 14:27:02 Requisition, Paper [facility] XR CHEST 1 VW 2023-10-11 16:58:00 Ken Diamond [facility] CONSENT/REFUSAL FOR DIAGNOSIS AND TREATMENT 2023-10-11 16:34:33 Doctor Unassigned, [place] [facility] BI ULTRASOUND BREAST COMPLETE RIGHT - CALL BACK 2023-05-01 20:51:47 Suad Goreh Edwin [facility] BI DIAGNOSTIC TOMOSYNTHESIS RIGHT - CALL BACK 2023-05-01 20:05[facility] (TTE[facility] COMPLETE W/ CONTRAST 2023-04-04 13:50:23 Sameer Silva [facility] CONSENT/REFUSAL FOR DIAGNOSIS AND TREATMENT 2023-03-01 15:10:29 Doctor Unassigned, [place] [facility] QUANTIFERON-TB ASSAY 2022-12-29 14:07:00 Rowan Bowman [facility] URINALYSIS 2022-12-25 09:31:00 Izabela Chawla [facility] XR ELBOW <3 VW LEFT 2022-12-25 09:00:29 Izabela Chawla [facility] CT CERVICAL SPINE WO CONTRAST 2022-12-25 08:59:50 Izabela Chawla [facility] CT MAXILLOFACIAL/MANDIBLE WO CONTRAST 2022-12-25 08:59:50 Izabela Chawla [facility] CT HEAD WO CONTRAST 2022-12-25 08:59:50 Izabela Chawla [facility] NOTICE OF PRIVACY PRACTICES 2022-12-25 08:06:53 Doctor Unassigned, [place] [facility] CONSENT/REFUSAL FOR DIAGNOSIS AND TREATMENT 2022-12-25 08:06:05 Doctor Unassigned, [place] [facility] RAPID STREP SCREEN FOR GROUP A 2022-09-10 23:15:00 Aysha Carrasco [facility] RAPID INFLUENZA A/B 2022-09-10 23:15:00 Aysha Carrasco [facility] CONSENT/REFUSAL FOR DIAGNOSIS AND TREATMENT 2022-09-10 22:29:55 Doctor Unassigned, [place] [facility] SCANNED LAB RESULTS 2022-07-25 06:01:00 Doctor Nicolás coronado, [place] [facility] FREE T4 2022-07-19 21:21:00 [facility] 2022-07-19 21:21:00 Sameer Silva [facility] FLU VACC(),65+YR,0.5 ML,IM,ADJUVANTED,QUAD(FLUA D) 2022-06-01 14:31:15 Gamaliel Torres [facility] PULMONARY FUNCTION TEST (RESULTS) 2022-04-27 14:25:27 Sameer Silva [facility] SCANNED LAB RESULTS 2022-04-27 05:01:00 Doctor Nicolás coronado, [place] [facility] Encounters Start Date/Time End Date/Time Encounter Type Admission Type Attending [facility] Care Facility Care Department Encounter ID Source 2024-05-22 08:37:00 [facility] [id number] [facility] 2024-05-09 09:08:00 [facility] [id number] [facility] 2022-08-09 13:13:00 [facility] [id number] [facility] 2022-07-20 08:37:00 [facility] [id number] [facility] 2021-11-09 10:09:01 [facility] [id number] [facility] 2021-09-28 14:23:59 Outpatient Gore, Razia STLMLC STLMLC [id number] [facility] 2021-09-28 12:57:37 Outpatient Gore, Razia STLMLC STLMLC [id number] [facility] 2021-09-28 12:44:09 Outpatient Gore, Razia STLMLC STLMLC [id number] [facility] 2021-09-28 12:29:54 Outpatient Gore, Razia STLMLC STLMLC [id number] [facility] 2021-09-28 11:27:46 Outpatient Gore, Razia STLMLC STLMLC [id number] [facility] 2021-09-28 11:22:11 Outpatient Gore, Razia STLMLC STLMLC [id number] [facility] 2021-09-28 11:19:10 Outpatient Gore, Razia STLMLC STLMLC [id number] [facility] 2021-09-28 11:17:26 Outpatient Gore, Razia STLMLC STLMLC [id number] [facility] 2021-09-28 11:13:00 Outpatient Gore, Razia STLMLC STLMLC [id number] [facility] 2021-09-28 11:12:47 Outpatient Gore, Razia STLMLC STLMLC [id number] [facility] 2021-07-03 18:46:58 Emergency [facility] [id number] [facility] 2021-07-03 14:45:26 Emergency [facility] [id number] [facility] 2021-07-03 13:57:01 Emergency [facility] [id number] [facility] 2021-07-02 10:42:08 Emergency [facility] [id number] [facility] 2024-11-04 09:30:00 2024-11-04 09:45:00 [facility] 1.840.114 350.1.13.10 4.2.7.2.686 [id number] [facility] 2024-11-04 09:30:00 2024-11-04 09:30:00 Outpatient R [facility] [id number] [facility] 2024-10-27 00:00:00 2024-10-27 00:00:00 OFFICE VISIT ESTAB PT LEVEL 3 STLMLC STLMLC [id number] [facility] 2024-10-23 09:47:00 2024-10-23 11:54:00 Emergency Arsh Mclean [facility] 1..840.114 350.1.13.10 4.2.7.2.686 [id number] [facility] 2024-10-23 09:20:00 2024-10-23 09:28:12 Outpatient R NOAH DIAMOND [facility] [id number] [facility] 2024-10-23 09:20:00 2024-10-23 09:28:12 Outpatient R NOAH DIAMOND [facility] M [facility] ERT [id number] [facility] 2024-10-23 09:20:00 2024-10-23 09:28:12 [facility] 1..840.114 350.1.13.10 4.2.7.2.686 [id number] [facility] 2024-09-18 00:00:00 2024-09-18 00:00:00 OFFICE VISIT ESTAB PT LEVEL 4 STLMLC STLMLC [id number] [facility] 2024-09-07 00:00:00 2024-09-07 00:00:00 (TEL) [facility] [id number] [facility] 2024-09-02 00:00:00 2024-09-02 00:00:00 (TEL) STLMLC STLC [id number] [facility] 2024-09-02 00:00:00 2024-09-02 00:00:00 OFFICE VISIT ESTAB PT LEVEL 3 [facility] [id number] [facility] 2024-08-21 00:00:00 2024-08-21 10:39:17 [facility] 1..840.114 350.1.13.10 4.2.7.2.686 [id number] [facility] 2024-08-18 11:34:35 2024-08-18 23:59:00 Outpatient EDGARD GUY [facility] [id number] [facility] 2024-08-18 11:34:35 2024-08-18 23:59:00 Hospital Encounter Edgard Grubbs [facility] 1.2.840.114 350.1.13.10 4.2.7.2.686 [id number] [facility] 2024-08-13 00:00:00 2024-08-13 16:07:25 Telephone Edgard Grubbs [facility] 1.2.840.114 350.1.13.10 4.2.7.2.686 [id number] [facility] 2024-08-12 09:37:18 2024-08-12 23:59:00 Outpatient EDGARD GUY [facility] [id number] [facility] 2024-08-12 09:37:18 2024-08-12 23:59:00 Hospital Encounter Edgard Grubbs [facility] 1.2.840.114 350.1.13.10 4.2.7.2.686 [id number] [facility] 2024-08-07 00:00:00 2024-08-07 14:34:31 Telephone Edgard Grubbs [facility] 1.2840.114 350.1.13.10 4.2.7.2.686 [id number] [facility] 2024-08-06 00:00:00 2024-08-06 00:00:00 (TEL) STLMLC STLMLC [id number] [facility] 2024-07-30 15:30:00 2024-07-30 16:00:00 Office Visit Edgard Grubbs [facility] 1.20.114 350.1.13.10 4.2.7.2.686 [id number] [facility] 2024-07-30 15:30:00 2024-07-30 15:30:00 Outpatient R EDGARD GRUBBS [facility] [id number] [facility] 2024-06-03 00:00:00 2024-07-18 14:52:08 Letter (Out) Nicko Gore [facility] 1.20.114 350.1.13.10 4.2.7.2.686 [id number] [facility] 2024-07-16 09:30:00 2024-07-16 09:30:00 Outpatient R EDGARD GRUBBS [facility] [id number] [facility] 2024-05-29 00:00:00 2024-07-05 18:27:33 Patient Secure Msg Doctor Unassigned, [place] Doctor Unassigned, [place] [facility] 1.20.114 350.1.13.10 4.2.7.2.686 [id number] [facility] 2024-07-02 00:00:00 2024-07-03 11:13:53 Refill Noah Diamond [facility] 1.2.840.114 350.1.13.10 4.2.7.2.686 [id number] [facility] 2024-06-26 14:30:00 2024-06-26 14:30:00 Outpatient R JAN MARTINEZ [facility] [id number] [facility] 2024-06-25 15:00:00 2024-06-25 15:27:47 Outpatient R SAMEER SILVA [facility] [id number] [facility] 2024-06-25 15:00:00 2024-06-25 15:27:47 Office Visit Sameer Silva [facility] 1.2.840.114 350.1.13.10 4.2.7.2.686 [id number] [facility] 2024-06-14 00:00:00 2024-06-16 10:03:25 Refill Noah Diamond [facility] 1.2.840.114 350.1.13.10 4.2.7.2.686 [id number] [facility] 2024-06-03 10:30:00 2024-06-03 10:30:00 Outpatient R SAMEER SILVA [facility] [id number] [facility] 2024 00:00:00 2024-05-21 09:58:20 Telephone Sameer Silva [facility] 1.2.840.114 350.1.13.10 4.2.7.2.686 [id number] [facility] 2024-05-19 00:00:00 2024-05-19 00:00:00 OFFICE VISIT ESTAB PT LEVEL 4 STLMLC STLMLC [id number] [facility] 2024-05-15 13:00:00 2024-05-15 14:00:00 Docent Coordinator Visit Therapist, Bo Respiratory Unknown, Attending [facility] 1..840.114 350.1.13.10 4.2.7.2.686 [id number] [facility] 2024-05-15 13:00:00 2024-05-15 13:00:00 Outpatient R UNKNOWN, ATTENDING [facility] [id number] [facility] 2024-05-09 00:00:00 2024-05-09 00:00:00 (TEL) STLMLC STLMLC [id number] [facility] 2024-05-07 08:50:27 2024-05-07 23:59:00 Outpatient R RADIOLOGY [facility] [id number] [facility] 2024-05-07 08:50:27 2024-05-07 23:59:00 Hospital Encounter Radiology Radiology [facility] 1..840.114 350.1.13.10 4.2.7.2.686 [id number] [facility] 2024-04-17 11:00:00 2024-04-17 11:12:12 Outpatient R NOAH DIAMOND [facility] [id number] [facility] 2024-04-17 11:00:00 2024-04-17 11:12:12 Office Visit Noah Diamond [facility] 1..840.114 350.1.13.10 4.2.7.2.686 [id number] [facility] 2024-04-04 10:00:00 2024-04-04 10:15:00 Docent Coordinator Visit Pob, Adc Lab Main Noah Diamond [facility] 1.2.840.114 350.1.13.10 4.2.7.2.686 [id number] [facility] 2024-04-04 10:00:00 2024-04-04 10:00:00 Outpatient R NOAH DIAMOND [facility] [id number] [facility] 2024-03-30 00:00:00 2024-04-04 09:24:07 [facility]ill Lobo [facility] 1.2.840.114 350.1.13.10 4.2.7.2.686 [id number] [facility] 2024-04-03 09:45:00 2024-04-03 23:59:00 Hospital Encounter Sameer Silva [facility] 1.2.840.114 350.1.13.10 4.2.7.2.686 [id number] [facility] 2024-04-03 09:00:00 2024-04-03 09:23:33 Outpatient R SAMEER SILVA [facility] [id number] [facility] 2024-04-03 09:00:00 2024-04-03 09:23:33 Office Visit Sameer Silva [facility] 1.2.840.114 350.1.13.10 4.2.7.2.686 [id number] [facility] 2024-03-19 00:00:00 2024-03-19 00:00:00 (TEL) [facility] [id number] [facility] 2024-03-19 00:00:00 2024-03-19 00:00:00 (TEL) [facility] [id number] [facility] 2024-02-26 00:00:00 2024-02-26 00:00:00 (TEL) STLMLC STLMLC [id number] [facility] 2023-12-07 00:00:00 2023-12-07 00:00:00 SUB ANNUAL [facility] VISIT STLMLC STLMLC [id number] [facility] 2023-12-07 00:00:00 2023-12-07 00:00:00 OFFICE VISIT ESTAB PT LEVEL 4 STLMLC STLC [id number] [facility] 2023-12-04 00:00:00 2023-12-04 00:00:00 (TEL) STLMLC STLMLC [id number] [facility] 2023-11-15 00:00:00 2023-11-15 00:00:00 Telephone Noah Diamond [facility] 1.2.840.114 350.1.13.10 4.2.7.2.686 [id number] [facility] 2023-11-07 07:37:04 2023-11-07 23:59:00 Hospital Encounter Radiology [facility] 1.2.840.114 350.1.13.10 4.2.7.2.686 [id number] [facility] 2023-11-07 07:36:50 2023-11-07 07:36:50 Outpatient R RADIOLOGY [facility] [id number] [facility] 2023-11-07 07:36:50 2023-11-07 07:36:50 Hospital Encounter Radiology [facility] 1.2.840.114 350.1.13.10 4.2.7.2.686 [id number] [facility] 2023-10-31 00:00:00 2023-10-31 00:00:00 (TEL) STLC STLC [id number] [facility] 2023-10-25 00:00:00 2023-10-25 00:00:00 (TEL) STLMLC STLMLC [id number] [facility] 2023-10-19 00:00:00 2023-10-19 00:00:00 (TEL) STLMLC STLMLC [id number] [facility] 2023-10-11 10:34:47 2023-10-11 23:59:00 Outpatient R NOAH DIAMOND [facility] [id number] [facility] 2023-10-11 10:34:47 2023-10-11 23:59:00 Hospital Encounter Noah Diamond [facility] 1.2840.114 350.1.13.10 4.2.7.2.686 [id number] [facility] 2023-10-11 10:00:00 2023-10-11 10:16:39 Office Visit Noah Diamond [facility] 1.840.114 350.1.13.10 4.2.7.2.686 [id number] [facility] 2023-10-11 00:00:00 2023-10-11 00:00:00 Orders Only Doctor Unassigned, [place] [facility] 1.2840.114 350.1.13.10 4.2.7.2.686 [id number] [facility] [facility] 2023-10-04 09:00:00 2023-10-04 09:31:37 Outpatient R SAMEER SILVA [facility] [id number] [facility] 2023-10-04 09:00:00 2023-10-04 09:31:37 Office Visit Sameer Silva [facility] 1.2.840.114 350.1.13.10 4.2.7.2.686 [id number] [facility] 2023-09-06 08:12:28 2023-09-06 23:59:00 Outpatient R LOBO NOAH Edwin NOAH DIAMOND [facility] [id number] [facility] 2023-09-06 08:12:28 2023-09-06 23:59:00 Hospital Encounter Lobo Noah maldonado [facility] 1.2.840.114 350.1.13.10 4.2.7.2.686 [id number] [facility] 2023-08-09 13:00:00 2023-08-09 13:15:56 Outpatient R LOBO NOAH ARORA [facility] [id number] [facility] 2023-08-09 13:00:00 2023-08-09 13:15:56 Office Visit Noah Diamond [facility] 1.2.840.114 350.1.13.10 4.2.7.2.686 [id number] [facility] 2023-08-08 00:00:00 2023-08-08 00:00:00 OFFICE VISIT ESTAB PT LEVEL 4 [facility] [id number] [facility] 2023-05-24 08:20:00 2023-05-24 09:19:39 Outpatient R NOAH DIAMOND CHOCKALINGA M [facility] [id number] [facility] 2023-05-24 08:20:00 2023-05-24 09:19:39 Office Visit Lobo Noah maldonado [facility] 1.2.840.114 350.1.13.10 4.2.7.2.686 [id number] [facility] 2023-05-24 09:00:00 2023-05-24 09:15:00 Docent Coordinator Visit 2, Adc Lab Noah Diamond [facility] 1.2840.114 350.1.13.10 4.2.7.2.686 [id number] [facility] 2023-05-01 13:57:21 2023-05-01 23:59:00 Hospital Encounter Radiology [facility] 1.2840.114 350.1.13.10 4.2.7.2.686 [id number] [facility] 2023-05-01 13:54:05 2023-05-01 13:56:00 Outpatient R RADIOLOGY [facility] [id number] [facility] 2023-05-01 13:54:05 2023-05-01 13:56:00 Hospital Encounter Radiology [facility] 1.2840.114 350.1.13.10 4.2.7.2.686 [id number] [facility] 2023-04-19 00:00:00 2023-04-19 00:00:00 OFFICE VISIT ESTAB PT LEVEL 3 [facility] [id number] [facility] 2023-04-17 00:00:00 2023-04-17 00:00:00 (TEL) [facility] [id number] [facility] 2023-04-16 00:00:00 2023-04-16 00:00:00 Telephone Sameer Silva [facility] 1.2.840.114 350.1.13.10 4.2.7.2.686 [id number] [facility] 2023-04-06 00:00:00 2023-04-06 00:00:00 Telephone Sameer Silva [facility] 1.2.840.114 350.1.13.10 4.2.7.2.686 [id number] [facility] 2023-04-05 00:00:00 2023-04-05 00:00:00 Telephone Sameer Silva HernanRachelAngelaRachel [facility] 1.2.840.114 350.1.13.10 4.2.7.2.686 [id number] [facility] 2023-04-04 07:40:12 2023-04-04 23:59:00 Outpatient R SAMEER SILVA [facility] [id number] [facility] 2023-04-04 07:40:12 2023-04-04 23:59:00 Hospital Encounter Sameer Silva RaissaRachel [facility] 1.2.840.114 350.1.13.10 4.2.7.2.686 [id number] [facility] 2023-04-02 07:33:57 2023-04-02 23:59:00 Outpatient R SAMEER SILVA [facility] [id number] [facility] 2023-04-02 07:33:57 2023-04-02 23:59:00 Hospital Encounter Silva, Emekaque JeniRachel [facility] 1.2.840.114 350.1.13.10 4.2.7.2.686 [id number] [facility] 2023-03-26 00:00:00 2023-03-26 00:00:00 (TEL) STLMLC ST[facility]MLC [id number] [facility] 2023-03-23 00:00:00 2023-03-23 00:00:00 (TEL) STLMLC [facility] [id number] [facility] 2023-03-22 00:00:00 2023-03-22 00:00:00 (TEL) STLMLC STLMLC [id number] [facility] 2023-03-22 00:00:00 2023-03-22 00:00:00 OFFICE VISIT ESTAB PT LEVEL 4 STLMLC STLMLC [id number] [facility] 2023-03-19 00:00:00 2023-03-19 00:00:00 (TEL) STLMLC STLMLC [id number] [facility] 2023-03-01 10:11:10 2023-03-01 23:59:00 Outpatient R RADIOLOGY [facility] [id number] [facility] 2023-03-01 10:11:10 2023-03-01 23:59:00 Hospital Encounter Radiology [facility] 1.2.840.114 350.1.13.10 4.2.7.2.686 [id number] [facility] 2023-03-01 00:00:00 2023-03-01 00:00:00 Orders Only Doctor Unassigned, [place] [facility] 1.2.840.114 350.1.13.10 4.2.7.2.686 [id number] [facility] 2023-02-26 00:00:00 2023-02-26 00:00:00 (TEL) STLMLC STLMLC [id number] [facility] 2022-12-29 15:06:00 2022-12-29 23:59:00 Hospital Encounter Rowan Shaikh [facility] 1.2.840.114 350.1.13.10 4.2.7.2.686 [id number] [facility] 2022-12-29 09:48:00 2022-12-29 15:05:00 Outpatient R ROWAN SHAIKH [facility] EHA [id number] [facility] 2022-12-29 09:48:00 2022-12-29 15:05:00 Hospital Encounter Rowan Shaikh [facility] 1..840.114 350.1.13.10 4.2.7.2.686 [id number] [facility] 2022-12-25 03:15:00 2022-12-25 05:40:00 Emergency X IZABELA CHAWLA [facility] ERT [id number] [facility] 2022-12-25 03:15:00 2022-12-25 05:40:00 Emergency Izabela Chawla [facility] 1..840.114 350.1.13.10 4.2.7.2.686 [id number] [facility] 2022-12-25 00:00:00 2022-12-25 00:00:00 (TEL) STLMLC STLMLC [id number] [facility] 2022-11-21 00:00:00 2022-11-21 00:00:00 OFFICE VISIT ESTAB PT LEVEL 4 STLMLC STLMLC [id number] [facility] 2022-11-21 00:00:00 2022-11-21 00:00:00 (TEL) STLMLC STLMLC [id number] [facility] 2022-11-21 00:00:00 2022-11-21 00:00:00 SUB ANNUAL [facility] VISIT STLMLC STLMLC [id number] [facility] 2022-11-21 00:00:00 2022-11-21 00:00:00 (TEL) STLMLC STLMLC [id number] [facility] 2022-10-04 11:00:00 2022-10-04 11:07:08 Outpatient R SAMEER SILVA [facility] [id number] [facility] 2022-10-04 11:00:00 2022-10-04 11:07:08 Office Visit Sameer Silva [facility] 1..840.114 350.1.13.10 4.2.7.2.686 [id number] [facility] 2022-09-11 00:00:00 2022-09-11 00:00:00 Telephone Aysha Carrasco [facility] 1.2.840.114 350.1.13.10 4.2.7.2.686 [id number] [facility] 2022-09-10 16:37:00 2022-09-10 18:15:00 Emergency X AYSHA CARRASCO [facility] ERT [id number] [facility] 2022-09-10 16:37:00 2022-09-10 18:15:00 Emergency Aysha Carrasco [facility] 1.2.840.114 350.1.13.10 4.2.7.2.686 [id number] [facility] 2022-09-09 09:30:00 2022-09-09 09:30:00 Outpatient R UNKNOWN, ATTENDING [facility] [id number] [facility] 2022-09-01 00:00:00 2022-09-01 00:00:00 (TEL) STLC STLMLC [id number] [facility] 2022-08-11 00:00:00 2022-08-11 00:00:00 Refill Sameer Silva [facility] 1..840.114 350.1.13.10 4.2.7.2.686 [id number] [facility] 2022-08-10 00:00:00 2022-08-10 00:00:00 (TEL) STLC STLMLC [id number] [facility] 2022-08-01 00:00:00 2022-08-01 00:00:00 Telephone Sameer Silva [facility] 1..840.114 350.1.13.10 4.2.7.2.686 [id number] [facility] 2022-07-25 00:00:00 2022-07-25 00:00:00 Orders Only Doctor Unassigned, [place] [facility] 1.2.840.114 350.1.13.10 4.2.7.2.686 [id number] [facility] 2022-07-24 00:00:00 2022-07-24 00:00:00 OFFICE VISIT ESTAB PT LEVEL 4 STLMLC STLMLC [id number] [facility] 2022-07-19 15:15:00 2022-07-19 15:30:00 Docent Coordinator Visit Pob, Adc Lab Main Sameer Silva [facility] 1.2.840.114 350.1.13.10 4.2.7.2.686 [id number] [facility] 2022-07-19 15:15:00 2022-07-19 15:15:00 Outpatient R SAMEER SILVA [facility] [id number] [facility] 2022-07-07 00:00:00 2022-07-07 00:00:00 Telephone Sameer Silva [facility] 1.2.840.114 350.1.13.10 4.2.7.2.686 [id number] [facility] 2022-06-02 08:20:00 2022-06-02 08:20:00 Outpatient R GAMALIEL TORRES [facility] [id number] [facility] 2022-06-01 08:40:00 2022-06-01 09:51:48 Outpatient R GAMALIEL TORRES [facility] [id number] [facility] 2022-06-01 08:40:00 2022-06-01 09:51:48 [facility] 1.840.114 350.1.13.10 4.2.7.2.686 [id number] [facility] 2022-05-26 08:20:00 2022-05-26 08:20:00 Outpatient R MELISSA [facility] [id number] [facility] 2022-05-26 08:20:00 2022-05-26 08:20:00 Outpatient R MELISSA [facility] [id number] [facility] 2022-05-01 00:00:00 2022-05-01 00:00:00 (TEL) STLMLC STLMLC [id number] [facility] 2022-04-27 09:30:00 2022-04-27 10:30:00 Docent Coordinator Visit Test, [facility] Pulmonary Function Unknown, Attending [facility] 1..114 350.1.13.10 4.2.7.2.686 [id number] [facility] 2022-04-27 09:30:00 2022-04-27 09:30:00 Outpatient R UNKNOWN, ATTENDING [facility] [id number] [facility] 2022-04-27 00:00:00 2022-04-27 00:00:00 Orders Only Doctor Unassigned, [place] [facility] 1.840.114 350.1.13.10 4.2.7.2.686 [id number] [facility] 2022-04-26 00:00:00 2022-04-26 00:00:00 (TEL) STLMLC STLMLC [id number] [facility] 2022-04-25 00:00:00 2022-04-25 00:00:00 [facility] 1.840.114 350.1.13.10 4.2.7.2.686 [id number] [facility] 2022-04-24 08:00:00 2022-04-24 08:15:00 Laboratory Only Only, Adc Test Lary TorresSameer Tee [facility] 1..840.114 350.1.13.10 4.2.7.2.686 [id number] [facility] 2022-04-24 08:00:00 2022-04-24 08:00:00 [id number] 2022-04-20 16:00:00 2022-04-20 16:00:00 [facility] [id number] [facility] 2022-04-18 15:40:08 2022-04-18 23:59:00 Outpatient SAMEER DOVE [facility] [id number] [facility] 2022-04-18 16:00:00 2022-04-18 16:00:00 Outpatient R SHIRA [facility] [id number] [facility] 2022-04-13 00:00:00 2022-04-13 00:00:00 (TEL) STLMLC STLMLC [id number] [facility] 2022-03-29 00:00:00 2022-03-29 00:00:00 Orders Only Doctor Unassigned, [place] [facility] 1..840.114 350.1.13.10 4.2.7.2.686 [id number] [facility] 2022-03-22 00:00:00 2022-03-22 00:00:00 OFFICE VISIT EST PT LEVEL 3 STLMLC STLMLC [id number] [facility] 2022-03-21 00:00:00 2022-03-21 00:00:00 OFFICE VISIT ESTAB PT LEVEL 4 STLMLC STLMLC [id number] [facility] 2022-03-21 00:00:00 2022-03-21 00:00:00 (TEL) STLMLC STLMLC [id number] [facility] 2022-03-20 10:30:00 2022-03-20 11:05:58 Outpatient R SAMEER SILVA [facility] [id number] [facility] 2022-03-20 10:30:00 2022-03-20 11:05:58 Office Visit Sameer Silva [facility] 1.2.840.114 350.1.13.10 4.2.7.2.686 [id number] [facility] 2022-03-20 10:30:00 2022-03-20 11:05:58 Outpatient R SAMEER SILVA [facility] [id number] [facility] 2022-03-20 00:00:00 2022-03-20 00:00:00 Orders Only Doctor Unassigned, [place] [facility] 1.2.840.114 350.1.13.10 4.2.7.2.686 [id number] [facility] 2022-03-08 08:15:00 2022-03-08 08:30:00 Docent Coordinator Visit Pob, Adc Lab Main Melissa [facility] BUILDING 1.2.840.114 350.1.13.10 4.2.7.2.686 [id number] [facility] 2022-03-08 08:15:00 2022-03-08 08:15:00 Outpatient R GAMALIEL TORRES [facility] [id number] [facility] 2022-03-07 00:00:00 2022-03-07 00:00:00 (TEL) STLMLC STLMLC [id number] [facility] 2022-03-07 00:00:00 2022-03-07 00:00:00 Telephone Melissa Gamaliel [facility] 1.2.840.114 350.1.13.10 4.2.7.2.686 [id number] [facility] 2022-02-27 00:00:00 2022-02-27 00:00:00 Refill Sameer Silva [facility] 1.2.840.114 350.1.13.10 4.2.7.2.686 [id number] [facility] 2022-02-22 00:00:00 2022-02-22 00:00:00 (TEL) STLMLC STLMLC [id number] [facility] 2021-12-19 00:00:00 2021-12-19 00:00:00 OFFICE VISIT EST PT LEVEL 3 STLMLC STLMLC [id number] [facility] 2021-11-22 00:00:00 2021-11-22 00:00:00 (TEL) STLMLC STLMLC [id number] [facility] 2021-11-22 00:00:00 2021-11-22 00:00:00 OFFICE VISIT ESTAB PT LEVEL 4 STLMLC STLMLC [id number] [facility] 2021-11-22 00:00:00 2021-11-22 00:00:00 SUB ANNUAL [facility] VISIT STLMLC STLMLC [id number] [facility] 2021-11-11 09:20:00 2021-11-11 09:57:07 Office Visit Gamaliel Torres [facility] 1.2.840.114 350.1.13.10 4.2.7.2.686 [id number] [facility] 2021-11-11 09:20:00 2021-11-11 09:57:07 Outpatient R GAMALIEL TORRES [facility] [id number] [facility] 2021-11-11 09:20:00 2021-11-11 09:20:00 Outpatient Nora TORRESGAMALIEL [facility] [id number] [facility] 2021-11-08 00:00:00 2021-11-08 00:00:00 (TEL) STLMLC STLMLC [id number] [facility] 2021-09-23 09:00:00 2021-09-23 09:38:44 Outpatient R SAMEER SILVA [facility] [id number] [facility] 2021-09-23 09:00:00 2021-09-23 09:38:44 Office Visit Sameer Silva [facility] 1.2.840.114 350.1.13.10 4.2.7.2.686 [id number] [facility] 2021-09-06 00:00:00 2021-09-06 00:00:00 Letter (Out) Kirstie Valencia [facility] 1.2.840.114 350.1.13.10 4.2.7.2.686 [id number] [facility] 2021-09-05 09:00:00 2021-09-05 09:00:00 Outpatient KI TAMAYO [facility] [id number] [facility] 2021-08-16 00:00:00 2021-08-16 00:00:00 OFFICE VISIT ESTAB PT LEVEL 4 STLMLC STLMLC [id number] [facility] 2021-08-16 00:00:00 2021-08-16 00:00:00 (TEL) STLMLC STLMLC [id number] [facility] 2021-05-31 10:40:00 2021-05-31 10:40:00 Outpatient GAMALIEL CHEN [facility] [id number] [facility] 2021-05-13 00:00:00 2021-05-13 00:00:00 (TEL) STLMLC STLMLC [id number] [facility] 2021-05-11 00:00:00 2021-05-11 00:00:00 Telephone Gamaliel Torres [facility] 1.2.840.114 350.1.13.10 4.2.7.2.686 [id number] [facility] 2021-05-04 00:00:00 2021-05-04 00:00:00 Telephone [facility] 1.2.840.114 350.1.13.10 4.2.7.2.686 [id number] [facility] 2021-05-03 07:57:07 2021-05-03 23:59:00 Hospital Encounter Gamaliel Torres [facility] 1.2.840.114 350.1.13.10 4.2.7.2.686 [id number] [facility] 2021-05-03 08:00:00 2021-05-03 08:00:00 Outpatient R GAMALIEL TORRES [facility] [id number] [facility] 2021-04-26 11:20:00 2021-04-26 11:20:00 Outpatient R GAMALIEL TORRES [facility] [id number] [facility] 2021-04-26 10:46:45 2021-04-26 11:06:45 Office Visit Gamaliel Torres [facility] 1.2.840.114 350.1.13.10 4.2.7.2.686 [id number] [facility] 2021-04-26 00:00:00 2021-04-26 00:00:00 OFFICE VISIT EST PT LEVEL 3 STLMLC STLMLC [id number] [facility] 2021-04-19 00:00:00 2021-04-19 00:00:00 OFFICE VISIT ESTAB PT LEVEL 4 STLMLC STLMLC [id number] [facility] 2021-03-28 00:00:00 2021-03-28 00:00:00 (TEL) STLMLC STLMLC [id number] [facility] 2021-03-23 09:00:00 2021-03-23 09:00:00 Outpatient SAMEER DOVE [facility] [id number] [facility] 2021-03-23 00:00:00 2021-03-23 00:00:00 Outpatient STLMLC STLMLC [id number] [facility] 2021-03-15 08:40:00 2021-03-15 08:40:00 Outpatient GAMALIEL CHEN [facility] [id number] [facility] 2021-02-21 00:00:00 2021-02-21 00:00:00 Outpatient STLMLC STLMLC [id number] [facility] 2021-01-25 09:40:00 2021-01-25 10:57:29 Outpatient GAMALIEL CHEN [facility] [id number] [facility] 2021-01-19 13:00:00 2021-01-19 13:00:00 Outpatient R CHELLE H, TAREQ CHELLE H, TAREQ [facility] [id number] [facility] 2021-01-17 09:00:00 2021-01-17 09:00:00 Outpatient SAMEER DOVE [facility] [id number] [facility] 2021-01-12 17:55:00 2021-01-12 20:20:00 Emergency X JET SANCHEZ [facility] ERT [id number] [facility] 2021-01-11 00:00:00 2021-01-11 00:00:00 Outpatient STLMLC STLMLC [id number] [facility] 2021-01-10 00:00:00 2021-01-10 00:00:00 Outpatient STLMLC STLMLC [id number] [facility] 2020-12-31 00:00:00 2020-12-31 00:00:00 Outpatient STLMLC STLMLC [id number] [facility] 2020-12-31 00:00:00 2020-12-31 00:00:00 Outpatient STLMLC STLMLC [id number] [facility] 2020-12-15 00:00:00 2020-12-15 00:00:00 Outpatient STLMLC STLMLC [id number] [facility] 2020-12-06 08:00:00 2020-12-06 08:00:00 Outpatient GAMALIEL CHEN [facility] [id number] [facility] 2020-12-02 00:00:00 2020-12-02 00:00:00 Outpatient STLMLC STLMLC [id number] [facility] 2020-11-30 00:00:00 2020-11-30 00:00:00 Outpatient STLMLC STLMLC [id number] [facility] 2020-11-29 08:00:00 2020-11-29 08:00:00 Outpatient GAMALIEL CHEN [facility] [id number] [facility] 2020-11-25 09:45:00 2020-11-25 09:45:00 Outpatient GAMALIEL CHEN [facility] [id number] [facility] 2020-11-25 00:00:00 2020-11-25 00:00:00 Outpatient STLMLC STLMLC [id number] [facility] 2020-11-25 00:00:00 2020-11-25 00:00:00 Outpatient STLMLC STLMLC [id number] [facility] 2020-10-27 00:00:00 2020-10-27 00:00:00 Outpatient STLMLC STLMLC [id number] [facility] 2020-10-26 10:40:00 2020-10-26 10:40:00 Outpatient GAMALIEL CHEN [facility] [id number] [facility] 2020-10-08 00:00:00 2020-10-08 00:00:00 Telephone Melissa Gamaliel [facility] Marleny Ramires [facility] [id number] 2020-10-05 08:09:16 2020-10-05 08:09:16 Outpatient R GAMALIEL TORRES [facility] [id number] [facility] 2020-09-28 10:00:00 2020-09-28 10:00:00 Outpatient R SAMEER SILVA [facility] [id number] [facility] 2020-09-13 14:30:00 2020-09-13 14:30:00 Outpatient R SAMEER SILVA [facility] [id number] [facility] 2020-08-30 00:00:00 2020-08-30 00:00:00 Outpatient STLMLC STLMLC [id number] [facility] 2020-08-19 14:00:00 2020-08-19 14:00:00 Outpatient R [facility] [id number] [facility] 2020-08-19 10:00:00 2020-08-19 10:00:00 Outpatient R [facility] [id number] [facility] 2020-08-16 11:30:00 2020-08-16 11:30:00 Outpatient R SAMEER SILVA [facility] [id number] [facility] 2020-08-10 00:00:00 2020-08-10 00:00:00 Outpatient STLMLC STLMLC [id number] [facility] 2020-07-09 00:00:00 2020-07-09 00:00:00 Outpatient STLMLC STLMLC [id number] [facility] 2020-06-08 00:00:00 2020-06-08 00:00:00 Outpatient STLMLC STLMLC [id number] [facility] 2020-05-28 00:00:00 2020-05-28 00:00:00 Outpatient STLMLC STLMLC [id number] [facility] 2020-04-16 09:30:00 2020-04-16 09:30:00 [facility] [id number] [facility] 2020-04-14 17:02:00 2020-04-14 17:02:[address] [facility] [id number] [facility] 2020-04-14 08:30:00 2020-04-14 08:30:[address] [facility] [address] [facility] [id number] [facility] 2020-04-12 17:00:00 2020-04-12 17:00:[address] [facility] [address] [facility] [id number] [facility] 2020-04-12 09:31:00 2020-04-12 09:31:[address] [facility] [address] [facility] [id number] [facility] 2020-04-07 13:16:00 2020-04-07 13:16:[address] [facility] [address] [facility] [id number] [facility] 2020-03-24 17:13:00 2020-03-24 17:13:[address] [facility] [address] [facility] [id number] [facility] 2020-03-22 13:00:00 2020-03-22 13:00:[address] [facility] [address] [facility] [id number] [facility] 2020-03-11 13:23:00 2020-03-11 13:23:[address] [facility] [address] [facility] [id number] [facility] 2020-03-06 09:00:00 2020-03-06 09:00:00 Outpatient [facility] [id number] [facility] 2020-03-04 13:50:00 2020-03-04 13:50:[address] [facility] [address] [facility] [id number] [facility] 2020-02-03 09:12:00 2020-02-03 09:12:[address] [facility] [address] [facility] [id number] [facility] 2020-01-19 09:00:00 2020-01-19 09:00:00 [facility] [id number] [facility] 2019-11-12 14:30:00 2019-11-12 14:30:[address] [facility] [id number] [facility] 2019-11-12 14:15:00 2019-11-12 14:15:[address] [facility] [id number] [facility] 2019-08-18 08:45:00 2019-08-18 08:45:[address] [facility] [id number] [facility] 2019-07-01 10:14:00 2019-07-01 10:14:[address] [facility] [id number] [facility] 2019-07-01 07:48:00 2019-07-01 07:48:[address] [facility] [id number] [facility] 2019-06-30 08:00:00 2019-06-30 08:00:[address] [facility] [id number] [facility] 2019-05-22 14:13:00 2019-05-22 14:13:00 [facility] [id number] [facility] 2019-05-19 09:45:00 2019-05-19 09:45:[address] [facility] [id number] [facility] 2019-05-14 13:25:00 2019-05-14 13:25:[address] [facility] [id number] [facility] 2019-05-13 14:32:00 2019-05-13 14:32:[address] [facility] [id number] [facility] 2019-05-13 12:05:00 2019-05-13 12:05:[address] [facility] [id number] [facility] 2019-05-13 09:37:00 2019-05-13 09:37:[address] [facility] [id number] [facility] 2019-03-19 14:02:00 2019-03-19 14:02:[address] [facility] [id number] [facility] 2018-12-25 11:30:00 2018-12-25 11:30:00 [facility] [id number] [facility] 2018-12-16 11:18:00 2018-12-16 11:18:[address] [facility] [id number] [facility] 2018-11-04 13:39:00 2018-11-04 13:39:00 [facility] [id number] [facility] 2018-09-17 11:45:00 2018-09-17 11:45:[address] [facility] [id number] [facility] 2018-08-12 10:00:00 2018-08-12 10:00:[address] [facility] [id number] [facility] 2018-03-27 08:20:00 2018-03-27 08:20:00 [facility] [id number] [facility] 2018-03-13 08:02:00 2018-03-13 08:02:00 [facility] [id number] [facility] 2018-03-05 08:09:00 2018-03-05 08:09:00 [facility] [id number] [facility] 2018-02-20 10:48:00 2018-02-20 10:48:00 [facility] [id number] [facility] 2018-02-20 10:21:00 2018-02-20 10:21:00 [facility] [id number] [facility] 2018-02-14 16:34:00 2018-02-14 16:34:00 [facility] [id number] [facility] 2018-02-13 09:00:00 2018-02-13 09:00:00 [facility] [id number] [facility] Results Test Description Test Time Test Comments Results Result Co [facility] [id number] 15:37:00 * Test Item Value Reference Range Interpretation Comme nts POCT U SP GRAV (test code = 3255) 1.015 mg/dl 1.005-1.025 POCT PH U (test code = 3254) 7.0 mg/dl 5-8 POCT U LEUK EST (test code = 3263) Trace Negative - Negative A POCT U NIT (test code = 3262) Negative Negative - Negati ve POCT U PROT (test code = 3259) Negative Negative - Negative POCT U GLU (test code = 3256) Negative Negative - Negati ve POCT U KETONE (test code = 3258) Negative Negative - Negative POCT U UROBILI (test code = 3260) 1.0 mg/dl 0.2-1 POCT U BILI (test code = 3261) Negative Negative - Negative POCT U BLD (test code = 3257) Negative Negative - Negati ve POCT U COLOR (test code = 3266) Yellow POCT U APPEAR (test code = 3267) Clear Lab Interpretation (test cod e = 56842-8) [facility]normal [facility] [id number] 16:07:26FULL RESULT: Examination: CT HEAD WO CONTRAST on 10/23/2024 9:53 AM Clinical Indication: Jerking movements of the left side of mouth Comparison: 12/25/2022 Technique: Noncontrast imaging was obtained from base to vertex. Findings: The sulci and ventricles were unremarkable. There was no evidencefor mass lesion, hemorrhage, or underlying edema. There were no bony,sinonasal or skull base lesions.[facility] 2024-09-11 00:00:00* Test Item Value Reference Range Interpretation Comme nts CORRECTED T4 (FTI) (test code = 53173-9) 14.7 UG/DL See_Comment H [Automated message] The system which generated this result transmitted reference range: 4.2-11.6 UG/DL. The reference range was not used to interpret this result as normal/abnormal. T-UPTAKE (test code = 15473-7) 36.1 % See_Comment [Automated [employer]] The system which generated this result transmitted reference range: 24.3-39.0 %. The reference range was not used to interpret this result as normal/abnormal. T4 (THYROXINE) (test code = 3026-2) 13.2 UG/DL See_Comment H [Automated [employer]] The system which generated this result transmitted reference range: 4.5-10.5 UG/DL. The reference range was not used to interpret this result as normal/abnormal. THYROX. BIND. CAPAC. (test code = 56774-9) 0.9 0.8-1.3 TSH, THIRD GENERATION (test code = 90089-3) 3.060 UIU/ML See_Comment [Automated message] The system which generated this result transmitted reference range: 0.400-4.100 UIU/ML. The reference range was not used to interpret this result as normal/abnormal. CALC LDL CHOL (test code = 97441-7) 78 MG/DL See_Comment [Automated [employer]] The system which generated this result transmitted reference range: <100 MG/DL. The reference range was not used to interpret this result as normal/abnormal. CHOLESTEROL (test code = 2093-3) 161 MG/DL See_Comment [Automated [employer]] The system which generated this result transmitted reference range: <200 MG/DL. The reference range was not used to interpret this result as normal/abnormal. HDL CHOLESTEROL (test code = 2085-9) 69 MG/DL See_Comment [Automated [employer]] The system which generated this result transmitted reference range: >39 MG/DL. The reference range was not used to interpret this result as normal/abnormal. RISK RATIO LDL/HDL (test code = 82650-5) 1.13 RATIO See_Comment [Automated message] The system which generated this result transmitted reference range: <3.22 RATIO. The reference range was not used to interpret this result as normal/abnormal. TRIGLYCERIDES (test code = 2571-8) 67 MG/DL See_Comment [Automated [employer]] The system which generated this result transmitted reference range: <150 MG/DL. The reference range was not used to interpret this result as normal/abnormal. ALBUMIN (test code = 1751-7) 3.8 G/DL See_Comment [Automated [employer]] The system which generated this result transmitted reference range: 3.5-5.2 G/DL. The reference range was not used to interpret this result as normal/abnormal. ALKALINE PHOSPHATASE (test code = 6768-6) 60 U/L See_Comment [Automated message] The system which generated this result transmitted reference range: 40-142 U/L. The reference range was not used to interpret this result as normal/abnormal. BILIRUBIN, TOTAL (test code = 1975-2) 0.2 MG/DL See_Comment [Automated [employer]] The system which generated this result transmitted reference range: <=1.2 MG/DL. The reference range was not used to interpret this result as normal/abnormal. BUN (test code = 3094-0) 17 MG/DL See_Comment [Automated [employer] ge] The system which generated this result transmitted reference range: 8-23 MG/DL. The reference range was not used to interpret this result as normal/abnormal. CALCIUM (test code = 61271-9) 9.3 MG/DL See_Comment [Automated messa ge] The system which generated this result transmitted reference range: 8.5-10.5 MG/DL. The reference range was not used to interpret this result as normal/abnormal. CALC A/G RATIO (test code = 1759-0) 1.4 RATIO See_Comment [Automated messa ge] The system which generated this result transmitted reference range: 1.0-2.6 RATIO. The reference range was not used to interpret this result as normal/abnormal. CALC BUN/CREAT (test code = 3097-3) 22 RATIO See_Comment [Automated messa ge] The system which generated this result transmitted reference range: 6-28 RATIO. The reference range was not used to interpret this result as normal/abnormal. CALC GLOBULIN (test code = 40220-9) 2.7 G/DL See_Comment [Automated messa ge] The system which generated this result transmitted reference range: 1.9-3.7 G/DL. The reference range was not used to interpret this result as normal/abnormal. CARBON DIOXIDE (test code = 1963-8) 27 MEQ/L See_Comment [Automated messa ge] The system which generated this result transmitted reference range: 19-31 MEQ/L. The reference range was not used to interpret this result as normal/abnormal. CHLORIDE (test code = 2075-0) 102 MEQ/L See_Comment [Automated messa ge] The system which generated this result transmitted reference range: 95-107 MEQ/L. The reference range was not used to interpret this result as normal/abnormal. CREATININE (test code = 2160-0) 0.79 MG/DL See_Comment [Automated messa ge] The system which generated this result transmitted reference range: 0.60-1.30 MG/DL. The reference range was not used to interpret this result as normal/abnormal. eGFR (2020 CKD-EPI) (test code = 27133-0) 80 ML/MIN/1.73 See_Comment [Automated message] The system which generated this result transmitted reference range: >60 ML/MIN/1.73. The reference range was not used to interpret this result as normal/abnormal. GLUCOSE (test code = 1558-6) 89 MG/DL See_Comment [Automated messa ge] The system which generated this result transmitted reference range: 70-99 MG/DL. The reference range was not used to interpret this result as normal/abnormal. POTASSIUM (test code = 2823-3) 3.8 MEQ/L See_Comment [Automated messa ge] The system which generated this result transmitted reference range: 3.5-5.4 MEQ/L. The reference range was not used to interpret this result as normal/abnormal. PROTEIN, TOTAL (test code = 2885-2) 6.5 G/DL See_Comment [Automated messa ge] The system which generated this result transmitted reference range: 6.1-8.3 G/DL. The reference range was not used to interpret this result as normal/abnormal. AST (test code = 1920-8) 23 U/L See_Comment [Automated messa ge] The system which generated this result transmitted reference range: 9-40 U/L. The reference range was not used to interpret this result as normal/abnormal. ALT (test code = 1742-6) 53 U/L See_Comment H [Automated messa ge] The system which generated this result transmitted reference range: 5-40 U/L. The reference range was not used to interpret this result as normal/abnormal. SODIUM (test code = 2951-2) 141 MEQ/L See_Comment [Automated messa ge] The system which generated this result transmitted reference range: 133-146 MEQ/L. The reference range was not used to interpret this result as normal/abnormal. US RETROPERITONEAL [id number] 18:55:30EXAM: US RETROPERITONEAL COMPLETE HISTORY: 69 years-old Female; Provided indication: rUTIs, hx ofnephrolithiasis . TECHNIQUE: Survey ultrasound of the kidneys and bladder was performed.Representativeimages were obtained for the record. COMPARISON: None FINDINGS: RIGHT KIDNEY:Size: The right kidney measures 9.2 cm in length.Parenchyma: The renal parenchyma exhibits normal cortical echogenicity an dthickness. Right superior pole heterogeneous exophytic mass is visualizedwithout internal vascularity measuring 1.1 x 0.9 x 1.4 cm. Right superiorpole echogenic foci is visualized without twinkling artifact or posteriorshadowing, measuring 0.5 cm in largest dimension. Collecting System: Mild righthydronephrosis. LEFT KIDNEY:Size: The left kidney measures 10.3 cm in length.Parenchyma: The renal parenchyma exhibits normal cortical echogenicity andthickness. No solid or cystic lesion is detected.Collecting System: No hydronephrosis is seen. BLADDER:The bladder is adequately distended and unrema rkable. Bilateral ureteraljets are visualized. Post void residual volume is normal and measures 21.7ml.[facility] CenterME[facility],POST-VOID RES,US,[id number] 21:37:00* Test Item Value Reference Range Interpretation Comme nts PVR (URINE VOLUME) (test code = 5193) 21 ml 0-100 Lab Interpretation (test cod e = 23594-8) Normal [facility] DIAGNOSTIC TOMOSYNTHESIS [id number] 15:42:52Examination:BI DIAGNOSTIC TOMOSYNTHESIS RIGHT History:Patient is 68 year old and is seen for: ?Abnormal mammogram. Prior exam:RightThere is a stable subcentimeter focal asymmetry focal asymmetry in the outer central breast, middle depth, 6 cm from the nipple, best seen on RS CC /47, RS ML 16/60. There is a stable 6 mm focal asymmetry in the lower inner quadrant, anterior depth, 3 cm from the nipple, best seen on RCC 17/57, R SML 29/60. Current exam:Computer- aided detection (CAD) utilized. Comparisons: 11/07/2023 BI DIAGNOSTIC TOMOSYNTHESIS BILATERAL and 03/01/2023 BI SCREENING TOMOSYNTHESISBILATERAL Findings: RightThere are scattered areas of fibroglandular density. Again noted is a subcentimeter focal asymmetry in the outer central breast, middle depth, 6 cm from the nipple, best seenon RS CC 17/40, RCC 11/44 and R MLO 11/50 (previously seen on RS CC 12/47, RS ML 16/60 on 11/07/2023).Likewise stable is a 6 mm focal asymmetry in the lower inner quadrant, anterior depth, 3 cm from the nipple, best seen on RCC 11/44, R SCC 10/40 and R SML 12/45 (previously seen on RCC 17/57, R SML 29/60 on 11/07/23). Of note the above focal asymmetries are mammographically stable dating back to February2023 where the findings were initially identified. Impression: RightStable subcentimeter focal asymmetry in the outer central breast, middle depth, 6 cm from the nipple with no previously identifiable sonographic correlate. ?BI-RADS 3Likewise stable is a 6 mm focal asymmetry in the lower inner quadrant, anterior depth, 3 cm from the nipple with no previously identifiable sonographic correlate. ?BI-RADS 3 Of note, the above right breast focal asymmetries are mammographically stable dating back to February 2023. Additionally, patient is due for left breast screening in November 2024. Recommendation:Short interval follow-up 3D mammogram 6 months - Right BI-RADS Category: Right 3 - [facility]PRE[facility]ENSIVE METABOLIC [id number] 00:00:00* Test Item Value Reference Range Interpretation Comme nts CORRECTED T4 (FTI) (test code = 11382-9) 19.8 UG/DL See_Comment H [Automated message] The system which generated this result transmitted reference range: 4.2-11.6 UG/DL. The reference range was not used to interpret this result as normal/abnormal. T-UPTAKE (test code = 01489-3) 39.0 % See_Comment [Automated [employer]] The system which generated this result transmitted reference range: 24.3-39.0 %. The reference range was not used to interpret this result as normal/abnormal. T4 (THYROXINE) (test code = 3026-2) 15.8 UG/DL See_Comment H [Automated [employer]] The system which generated this result transmitted reference range: 4.5-10.5 UG/DL. The reference range was not used to interpret this result as normal/abnormal. THYROX. BIND. CAPAC. (test code = 46801-0) 0.8 0.8-1.3 TSH, THIRD GENERATION (test code = 05447-5) 0.918 UIU/ML See_Comment [Automated message] The system which generated this result transmitted reference range: 0.400-4.100 UIU/ML. The reference range was not used to interpret this result as normal/abnormal. CALC LDL CHOL (test code = 11614-1) 69 MG/DL See_Comment [REALTIME.CO] The system which generated this result transmitted reference range: <100 MG/DL. The reference range was not used to interpret this result as normal/abnormal. CHOLESTEROL (test code = 2093-3) 154 MG/DL See_Comment [Automated messa ge] The system which generated this result transmitted reference range: <200 MG/DL. The reference range was not used to interpret this result as normal/abnormal. HDL CHOLESTEROL (test code = 2085-9) 71 MG/DL See_Comment [Automated messa ge] The system which generated this result transmitted reference range: >39 MG/DL. The reference range was not used to interpret this result as normal/abnormal. RISK RATIO LDL/HDL (test code = 04810-9) 0.97 RATIO See_Comment [Automated message] The system which generated this result transmitted reference range: <3.22 RATIO. The reference range was not used to interpret this result as normal/abnormal. TRIGLYCERIDES (test code = 2571-8) 59 MG/DL See_Comment [Automated messa ge] The system which generated this result transmitted reference range: <150 MG/DL. The reference range was not used to interpret this result as normal/abnormal. ALBUMIN (test code = 1751-7) 3.9 G/DL See_Comment [Automated messa ge] The system which generated this result transmitted reference range: 3.5-5.2 G/DL. The reference range was not used to interpret this result as normal/abnormal. ALKALINE PHOSPHATASE (test code = 6768-6) 48 U/L See_Comment [Automated message] The system which generated this result transmitted reference range: 40-142 U/L. The reference range was not used to interpret this result as normal/abnormal. BILIRUBIN, TOTAL (test code = 1975-2) 0.5 MG/DL See_Comment [Automated messa ge] The system which generated this result transmitted reference range: <=1.2 MG/DL. The reference range was not used to interpret this result as normal/abnormal. BUN (test code = 3094-0) 12 MG/DL See_Comment [Automated messa ge] The system which generated this result transmitted reference range: 8-23 MG/DL. The reference range was not used to interpret this result as normal/abnormal. CALCIUM (test code = 06238-5) 9.0 MG/DL See_Comment [Automated messa ge] The system which generated this result transmitted reference range: 8.5-10.5 MG/DL. The reference range was not used to interpret this result as normal/abnormal. CALC A/G RATIO (test code = 1759-0) 1.4 RATIO See_Comment [Automated messa ge] The system which generated this result transmitted reference range: 1.0-2.6 RATIO. The reference range was not used to interpret this result as normal/abnormal. CALC BUN/CREAT (test code = 3097-3) 13 RATIO See_Comment [Automated messa ge] The system which generated this result transmitted reference range: 6-28 RATIO. The reference range was not used to interpret this result as normal/abnormal. CALC GLOBULIN (test code = 66376-2) 2.7 G/DL See_Comment [Automated messa ge] The system which generated this result transmitted reference range: 1.9-3.7 G/DL. The reference range was not used to interpret this result as normal/abnormal. CARBON DIOXIDE (test code = 1963-8) 26 MEQ/L See_Comment [Automated messa ge] The system which generated this result transmitted reference range: 19-31 MEQ/L. The reference range was not used to interpret this result as normal/abnormal. CHLORIDE (test code = 2075-0) 104 MEQ/L See_Comment [Automated messa ge] The system which generated this result transmitted reference range: 95-107 MEQ/L. The reference range was not used to interpret this result as normal/abnormal. CREATININE (test code = 2160-0) 0.95 MG/DL See_Comment [Automated messa ge] The system which generated this result transmitted reference range: 0.60-1.30 MG/DL. The reference range was not used to interpret this result as normal/abnormal. eGFR (2020 CKD-EPI) (test code = 71888-6) 64 ML/MIN/1.73 See_Comment [Automated message] The system which generated this result transmitted reference range: >60 ML/MIN/1.73. The reference range was not used to interpret this result as normal/abnormal. GLUCOSE (test code = 1558-6) 97 MG/DL See_Comment [Automated messa ge] The system which generated this result transmitted reference range: 70-99 MG/DL. The reference range was not used to interpret this result as normal/abnormal. POTASSIUM (test code = 2823-3) 4.1 MEQ/L See_Comment [Automated messa ge] The system which generated this result transmitted reference range: 3.5-5.4 MEQ/L. The reference range was not used to interpret this result as normal/abnormal. PROTEIN, TOTAL (test code = 2885-2) 6.6 G/DL See_Comment [Automated messa ge] The system which generated this result transmitted reference range: 6.1-8.3 G/DL. The reference range was not used to interpret this result as normal/abnormal. AST (test code = 1920-8) 23 U/L See_Comment [Automated messa ge] The system which generated this result transmitted reference range: 9-40 U/L. The reference range was not used to interpret this result as normal/abnormal. ALT (test code = 1742-6) 26 U/L See_Comment [Automated messa ge] The system which generated this result transmitted reference range: 5-40 U/L. The reference range was not used to interpret this result as normal/abnormal. SODIUM (test code = 2951-2) 143 MEQ/L See_Comment [Automated messa ge] The system which generated this result transmitted reference range: 133-146 MEQ/L. The reference range was not used to interpret this result as normal/abnormal. XR CHEST 2 [id number] 15:11:09HISTORY: On amiodarone. TECHNIQUE: PA and lateral views of the chest are obtained. Comparison madewith 10/11/2023 study. FINDINGS: No acute pneumonia detected. No pneumothorax or pleural effusionor pulmonary congestion. Cardiothoracic ratio of approximately 11.5/27.2 cmis consistent with normal cardiac size. No aggressive bone lesions orcompression deformity is seen in the thoracic vertebral bodies. Mildthoracolumbar dextroscoliosis noted. CONCLUSIONS: Essentially normal study.[facility] DIAGNOSTIC TOMOSYNTHESIS [id number] 15:13:19 Examination:BI DIAGNOSTIC TOMOSYNTHESIS BILATERAL History:Patient is 68 year old and is seen for: ?Abnormal mammogram. Computer-aided detection (CAD) utilized. Comparisons: 03/01/2023 BI SCREENING TOMOSYNTHESIS BILATERAL Findings:The breasts have scattered areas of fibroglandular density. LeftThereis no evidence of suspicious masses, calcifications, or other abnormal findings in the left breast.RightThere is a stable subcentimeter focal asymmetry focal asymmetry in the outer central breast, middle depth, 6 cm from the nipple, best seen on RS CC 12/47, RS ML 16/60.There is a stable 6 mm focal asymmetry in the lower inner quadrant, anterior depth, 3 cm from the nipple, best seen on RCC 17/57, R SML 29/60. Impression: LEFT BREAST: No mammographic evidence of malignancy. RIGHT BREAST: Stable right breast focal asymmetries as described above. ?Short-term follow-up 3D mammogram in 6 months is recommended to document stability. Recommendation:Annual mammographic follow-up - LeftShort interval follow-up 3D mammogram 6 months - RightThese findings and recommendations were discussed in detail with the patient at the time of this exam. BI-RADS Category: Left 1 - NegativeRight 3 - Probably [facility]UnTexas [facility]entonXR CHEST 1 VW 2023-10-11 17:18:34HISTORY: ?Long-term amiodarone use. FINDINGS: ?AP view of the chest is obtained and compared with 01/12/2021tudy. Mild generalized obstructive lung disease noted. No significantpulmonary fibrosis detected. Cardiomediastinal contour appears normal. Noacute pneumonia, pleural effusion, pulmonary conge stion detected. CONCLUSIONS: No acute cardiopulmonary disease.[facility] ([facility], T4, T7, TSH)2023-08-01 00:00:00* Test Item Value Reference Range Interpretation Comme nts CORRECTED T4 (FTI) (test code = 80552-8) 12.6 UG/DL See_Comment H [Automated [employer]] The system which generated this result transmitted reference range: 4.2-11.6 UG/DL. The reference range was not used to interpret this result as normal/abnormal. T-UPTAKE (test code = 47027-5) 33.1 % See_Comment [Automated [employer]] The system which generated this result transmitted reference range: 24.3-39.0 %. The reference range was not used to interpret this result as normal/abnormal. T4 (THYROXINE) (test code = 3026-2) 12.6 UG/DL See_Comment H [Automated [employer]] The system which generated this result transmitted reference range: 4.5-10.5 UG/DL. The reference range was not used to interpret this result as normal/abnormal. THYROX. BIND. CAPAC. (test code = 08276-1) 1.0 0.8-1.3 TSH, THIRD GENERATION (test code = 80335-2) 4.220 UIU/ML See_Comment H [Automated [employer]] The system which generated this result transmitted reference range: 0.400-4.100 UIU/ML. The reference range was not used to interpret this result as normal/abnormal. Transthoracic echo (TTE)2023-04-04 22:28:35* Test Item Value Reference Range Interpretation Comme nts Height (test code = 2648311911) 63 in Weight (test code = 7752030141) 150 lbs Systolic BP (test code = 7463854204) 132 mmHg Diastolic BP (test code = 2622132237) 71 mmHg Heart Rate (test code = 3953534875) 69 bpm MR max PG (test code = 3278233794) 68.80 mm[Hg] MR max neelam (test code = 7752071421) 414.60 cm/s Ao root diam (test code = 3453413177) 2.90 cm Mr max neelam (test code = 9542598905) 414.6 m/s Aortic root (test code = 5739535021) 2.9 cm Ao root annulus (test code = 8962137805) 2.9 cm BSA (test code = 4934759317) 1.71 m2 LVOT diameter (test code = 4013328871) 1.90 cm LVOT area (test code = 9190157342) 2.80 cm2 LA size (test code = 2137728883) 3.2 cm ACS (test code = 1159057183) 1.83 cm LVIDD (test code = 2412749302) 5.00 cm Left Ventricular End Diastolic Volume by Teichholz Method (test code = 4237053) 117.9 mL IVS (test code = 0597702565) 0.74 cm Interventricular Septum Diastolic Thickness by 2D (test code = 8426137) 0.74 cm LVPWD (test code = 2412210597) 0.91 cm PW (test code = 4099394163) 0.91 cm 0.6-1.1 EF(Teich) (test code = 6246150812) 50.70 % LVIDS (test code = 1148347945) 3.70 cm Left Ventricular End Systolic Volume by Teichholz Method (test code = 0956172) 58.2 mL FS (test code = 0096652181) 26 % EF - 2D (test code = 60757082) 50.70 % PV PEAK VELOCITY (test code = 5214817472) 79.1 cm/s PV peak gradient (test code = 3801012263) 2.5 mmHg LAV(MOD-sp4) (test code = 2838620423) 38.60 mL MV E-F slope (test code = 4144592717) 37.20 cm/s MV Peak E Neelam (test code = 9687385560) 92.8 cm/s MV valve area p 1/2 method (test code = 8669593747) 5.20 cm2 MV dec slope (test code = 8393768516) 637.30 cm/s2 MV P1/2t max neelam (test code = 8846107040) 92.80 cm/s MV Peak A Neelam (test code = 9523320268) 77.0 cm/s E/A ratio (test code = 9513216303) 1.20 ratio LVOT stroke volume (test code = 3170987702) 54.70 cm3 LVOT peak neelam (test code = 6036141016) 87.5 cm/s LVOT mn grad (test code = 9062875165) 1.3 mmHg AV LVOT peak gradient (test code = 8924392149) 3.1 mmHg LVOT peak VTI (test code = 0621978832) 19.3 cm LV V1 mean (test code = 9672822959) 53.10 cm/s Aortic valve mean velocity (test code = 9247095873) 95.2 cm/s Ao peak neelam (test code = 9423289528) 148.1 cm/s Ao VTI (test code = 6254731829) 33.9 cm AV area by cont VTI (test code = 3351893631) 1.6 cm2 AV area peak neelam (test code = 9598109750) 1.7 cm2 Ao max PG (test code = 0634417581) 8.80 mm[Hg] AV peak gradient (test code = 4860871252) 8.8 mmHg AV valve area (test code = 5470762664) 1.61 cm2 AV mean gradient (test code = 5439703995) 4.1 mmHg AV regurgitation pressure 1/2 time (test code = 5768469833) 357.3 ms AI dec slope (test code = 4387258951) 203.90 cm/s2 AI max neelam (test code = 5259440880) 248.80 cm/s AI max PG (test code = 5746292740) 24.80 mm[Hg] TR Peak Neelam (test code = 3454088411) 218.0 cm/s Triscuspid Valve Regurgitation Peak Gradient (test code = 1967907550) 19.6 mmHg LA Volume Index (BP) (test code = 9545741564) 26.8 mL/m2 LA volume (BP) (test code = 9591934098) 45.8 mL LAV(MOD-sp2) (test code = 7382660775) 54.00 mL Radiology Study observation (narrative) (test code = 49857-3) MELISSA (test code = MELISSA) ?Left?Ventricle: Left ventricle size is normal. Normal wall thickness. Normal wall motion. Normal systolic function with a visually estimated EF of 55 - 60%. Diastolic dysfunction. ?Tricuspid?Valve: Trace transvalvular regurgitation. Insufficient tricuspid regurgitation jet to estimate RVSP. ?RA pressure is 5-10 mmHg. ?Left?Atrium: Left atrium is mildly dilated. ?Aorta: Borderline enlarged ascending aorta 3.1cm. Left VentricleLeft ventricle size is normal. Normal wall thickness. Normal wall motion. Normal systolic function with a visually estimated EF of 55 - 60%. Diastolic dysfunction.Right VentricleRight ventricle size is normal. Normal systolic function.Left AtriumLeft atrium is mildly dilated.Right AtriumRight atrium size is normal.IVC/SVCRA pressure is 5-10 mmHg.Mitral ValveMitral valve structure is normal. Trace transvalvular regurgitation.Tricuspi d ValveTricuspid valve structure is grossly normal. Trace transvalvular regurgitation. Insufficient tricuspid regurgitation jet to estimate RVSP. RA pressure is 5-10 mmHg.Aortic ValveTricuspid. Mildly calcified cusps. No hemodynamically significant .Pulmonic ValveNot well visualized. Trace transvalvular regurgitation.Ascendin g AortaBorderline enlarged ascending aorta 3.1cm.PericardiumNo pericardial effusion.Study DetailsStudy quality was adequate. A complete echocardiogram was performed using 2D, color flow Doppler and spectral Doppler. 5 mL of Lumason ultrasound enhancing agent used. [facility] W/AUTO [id number] 00:00:00* Test Item Value Reference Range Interpretation Comme nts NUCLEATED RBCS (test code = 32219-0) 0.0 /100 WBC'S See_Comment [Automated [employer]] The system which generated this result transmitted reference range: 0.0 /100 WBC'S. The reference range was not used to interpret this result as normal/abnormal. ABSOLUTE EOSINOPHILS (test code = 43091-4) 0.10 K/UL See_Comment [Automated [employer]] The system which generated this result transmitted reference range: 0.00-0.50 K/UL. The reference range was not used to interpret this result as normal/abnormal. ABSOLUTE LYMPHOCYTES (test code = 86438-2) 1.80 K/UL See_Comment [[employer]] The system which generated this result transmitted reference range: 1.00-4.00 K/UL. The reference range was not used to interpret this result as normal/abnormal. ABSOLUTE MONOCYTES (test code = 04682-8) 0.38 K/UL See_Comment [Automated [employer]] The system which generated this result transmitted reference range: 0.20-1.00 K/UL. The reference range was not used to interpret this result as normal/abnormal. ABSOLUTE NEUTROPHILS (test code = 42474-8) 2.15 K/UL See_Comment [[employer]] The system which generated this result transmitted reference range: 1.50-7.50 K/UL. The reference range was not used to interpret this result as normal/abnormal. BASOPHILS (test code = 36522-8) 1.3 % EOSINOPHILS (test code = 58084-2) 2.2 % HEMATOCRIT (test code = 24810-5) 36.6 % See_Comment [Automated [employer]] The system which generated this result transmitted reference range: 34.0-45.0 %. The reference range was not used to interpret this result as normal/abnormal. HEMOGLOBIN (test code = 718-7) 12.3 G/DL See_Comment [Automated messa ge] The system which generated this result transmitted reference range: 11.5-15.5 G/DL. The reference range was not used to interpret this result as normal/abnormal. LYMPHOCYTES (test code = 19430-4) 40.0 % MCH (test code = 98500-8) 29.7 PG See_Comment [Automated messa ge] The system which generated this result transmitted reference range: 25.0-33.0 PG. The reference range was not used to interpret this result as normal/abnormal. MCHC (test code = 84392-6) 33.6 G/DL See_Comment [Automated messa ge] The system which generated this result transmitted reference range: 31.0-36.0 G/DL. The reference range was not used to interpret this result as normal/abnormal. MCV (test code = 47941-9) 88.4 fL See_Comment [Automated messa ge] The system which generated this result transmitted reference range: 80.0-99.0 fL. The reference range was not used to interpret this result as normal/abnormal. MONOCYTES (test code = 85385-9) 8.4 % NEUTROPHILS (test code = 29505-7) 47.9 % PLATELET COUNT (test code = 98224-9) 235 K/UL See_Comment [Automated messa ge] The system which generated this result transmitted reference range: 130-400 K/UL. The reference range was not used to interpret this result as normal/abnormal. RBC (test code = 18463-0) 4.14 M/UL See_Comment [Automated messa ge] The system which generated this result transmitted reference range: 3.80-5.40 M/UL. The reference range was not used to interpret this result as normal/abnormal. RDW (test code = 78834-4) 12.7 % See_Comment [Automated messa ge] The system which generated this result transmitted reference range: 11.5-15.0 %. The reference range was not used to interpret this result as normal/abnormal. WBC (test code = 50934-7) 4.5 K/UL See_Comment [Automated messa ge] The system which generated this result transmitted reference range: 3.5-11.0 K/UL. The reference range was not used to interpret this result as normal/abnormal. QUANTIFERON-TB [id number] 15:22:12* Test Item Value Reference Range Interpretation Comme nts Extra Tube (test code = 0535488574) [facility]2022-07-20 06:25:10* Test Item Value Reference Range Interpretation Comme nts T3 (test code = 5167806016) 81.3 ng/dL 97.0-170.0 L Lab Interpretation (test cod e = 91277-5) [facility]normal [facility]Tri[facility]othy[facility], Level)2022-07-20 06:25:10* Test Item Value Reference Range Interpretation Comme nts T3 (test code = 1018469413) 81.3 ng/dL 97.0-170.0 L Lab Interpretation (test cod e = 34274-2) [facility]normal [facility]Free T4)2022-07-19 22:56:31* Test Item Value Reference Range Interpretation Comme nts FREE T4 (test code = 4880224339) See_Comment [Automated messa ge] The system which generated this result transmitted reference range: 0.78 - 2.20 ng/dL:. The reference range was not used to interpret this result as normal/abnormal. Lab Interpretation (test code = 51352-3) Normal [facility]2022-07-19 22:56:31* Test Item Value Reference Range Interpretation Comme nts FREE T4 (test code = 8939035377) See_Comment [Automated messa ge] The system which generated this result transmitted reference range: 0.78 - 2.20 ng/dL:. The reference range was not used to interpret this result as normal/abnormal. Lab Interpretation (test code = 43817-4) Normal [facility]RESULTS[facility]2022-04-27 14:25:27* Test Item Value Reference Range Interpretation Comme nts FVC Actual (test code = 3994) 3.17 L FEV1 Actual (test code = 3993) 2.63 L FEV1/FVC Actual (test code = 3995) 83 % [facility] BONE DENSITY AXIAL SKELEDEXA, BONE DENSITY AXIAL SKELE Notes Date/Time Note Provider Source 2024-10-23 11:53:34 Patient was given all discharge instructions, non labored breathing, no distress, patient has steady gait, and understands to supervisor picking crew her medications at the pharmacy. AN Jamison RN [facility] 2024-10-23 11:03:03 Patient up to the restroom, steady slow gait, no distress, non labored breathing. CT SERVICE PROVIDER [facility] 2024-10-23 10:41:34 Lab notified add on magnesium AN Castellanos RN [facility] 2024-10-23 09:41:27 Pt arrived ambulatory for jerking/involuntary movements on left side [id number], stiff neck x1 week, sees a neurologist for dementia. Pt drove here AN Pizarro RN [facility] 2024-08-21 10:37:29 Norberto Barron identified by name and date of . Results and recommendations provided. Patient verbalized understanding and request scheduling Renal US out to the latest timeframe of 6 months, and expressed appreciation. Renal US 02/04/25 8:30 am [facility] location CT returned NEGATIVE for any swelling of the kidneys (no hydronephrosis) ; also negative for kidney stones. 1.5 cm renal lesion, characterized as a Bosniak IIF. Surveillance is recommended ; future renal ultrasound to be performed in 3-6 months. Please keep scheduled follow-up. Reviewed w/ faculty. Edgard Grubbs APRN, AGNP- 08/21/2024 10:02 A AN Collier LVN [facility] 2024-08-21 10:02:09 CT returned NEGATIVE for any swelling of the kidneys (no hydronephrosis) ; also negative for kidney stones. 1.5 cm renal lesion, characterized as a Bosniak IIF. Surveillance is recommended ; future renal ultrasound to be performed in 3-6 months. Please keep scheduled follow-up. Reviewed w/ faculty. FABIÁN Garcia APRN 08/21/2024 10:[address] [facility] 2024-08-13 16:02:44 Spoke with patient and gave FINANCIAL RISK MANAGER comments. Patient verbalized understanding and routed to radiology scheduling. CT SERVICE PROVIDER Pily Lopez [employer] SUPERVISOR [facility] 2024-08-13 10:18:04 Renal ultrasound - mild right sided kidney dilation / swelling. There is an area of calcification within the right kidney measuring 5mm (kidney stone versus calcification of outer kidney). Right kidney also with complex cyst. Recommendation for further imaging. CT scan ordered. FABIÁN Garcia APRN 08/13/2024 10:[address] [facility] 2024-08-07 14:15:04 Ucx + for E. Coli UTI. No resistance. +vaginal estrogen cream. Spoke w/ patient. Plan for abx then start of preventative hiprex. FABIÁN Garcia APRN 08/07/2024 2:[address] [facility] 2024-07-03 11:09:13 Refill requested for Requested Prescriptions Pending Prescriptions Disp Refills AMIODARONE 200 mg tablet [Pharmacy Med Name: Amiodarone HCl 200 MG Oral Tablet] 90 tablet 0 Sig: TAKE 1 TABLET BY MOUTH IN THE MORNING SHARIF with Dr. Silva, 04/17/[address] Diamond PFT completed in last year. Thyroid labs completed 04/2024, monitored by PCP. CMP WNL. Labs 04/04/24 NOV 10/23/24 Rebecca Marks RN [facility] 2024-05-21 09:57:55 Patient returned call and was notified of results. She verbalized understanding and has no further questions. Rebecca Marks RN [facility] 2024-05-21 08:53:25 No answer and mailbox full. Iliana Slater RN [facility] 2024 10:38:23 Images from the original note were not included. Lvm for pt to call back regarding physician review of recent PFT. Sameer Silva MD P Cardiology Nurse Normal spirometry and lung volumes. Normal diffusion Follow-up as planned. [facility] 2024-04-04 10:00:00 Images from the original note were not included. Venipuncture collection performed by clean technique on the left anticubitus. Total of 1 attempts were made. Slight pressure and a bandage/dressing were applied to the site(s). The patient experienced no complications. The following specimens were processed according to instructions and sent to [facility] laboratories per lab order on 04/04/24: LT BLUE SST 1 RED LAV PPT DK GREEN (LiHep) DK GREEN (SodH) SAENZ DK BLUE (K2) DK BLUE (S) ACD Blood Culture NIPT/NTD T [facility] 2024-04-04 09:23:32 Refill done according to Cardiology Medication Refill Guidelines. Spoke with patient and she will have lab done today . Verbalized understanding and agreed. Layla Mcclelland LVN [facility] 2024-04-04 09:21:55 Norberto Barron is a 68 year old female Pt calling about Rx. Warm transferred to Nurse Layla. Anjali Amaya [facility] 2024-04-03 09:45:00 Normal Chest X ray. Awaiting PFTs results T [facility] 2024-04-02 09:41:37 Tried to contact patient, message left. T [facility] 2024-04-01 10:14:55 Attempted to contact patient, message left. [facility] 2024-03-31 19:18:39 Please obtain lab work (TSH, FT4, CMP) and CXR. If WNL, okay to refill amiodarone. If patient has run out, OK to refill until lab work can be obtained. Cheng Diamond MD [facility] 2024-03-31 13:47:23 Images from the original note were not included. Amiodarone refill requested. [facility] requesting below labs. Needed or proceed with refill? Routed to MD for labs review. [facility] 2023-11-16 11:30:30 Pt is not mychart active. States yes was on 100mg amiodarone. Will increase to 200mg and call PRN. MAR updated. [facility] 2023-11-15 17:26:34 Please confirm patient is currently on amiodarone 100 mg daily (cut from 200 to 100 on last clinic appt). If so, please increase amiodarone back to 200 mg daily. Thank You, Cheng Diamond MD [facility] 2023-11-15 16:42:15 Routed to MD for chart review. [facility] 2023-11-15 13:40:53 Copied from [facility] #[id number]. Topic: Clinical - Medical Advice >> Nov 15, 2023 1:38 PM Patient Process Helper wrote: Norberto Barron is a 68 year old female Pt is calling and is stating that she started having the heart palpatations agin as of 11/09/23 . Pt is asking if she can up her medication by a 1/2 of a pill on the amiodarone 200 mg tablet Please advise Dixie Thomas [facility] 2023-04-17 13:55:42 Formatting of this n ote might be different from the original. Patient has been scheduled With Dr. Anand on 05/24/2023. Adela White [facility] 2023-04-17 10:49:58 Formatting of this n ote might be different from the original. Patient notified of results. She verbalized understanding. She is scheduled to see EP 06/07/23. Will route to PSS to see if there are any sooner appointments. Patient is off amiodarone. She states she has been off amiodarone for about 6 months. Not clear who took her off of it. Rebecca Marks RN [facility] 2023-04-16 11:32:09 Formatting of this n ote is different from the original. Images from the original note were not included. Attempted to contact patient with results/recommendations. [facility] for patient to return call to [phone]. Holter monitor - 48 hour: Patient Communication Released Not seen Frequent PVC noted at 10%. Please verify if he has been compliant with amiodarone. She needs to follow-up with EP. Seen by Dr. Torres in the past. Please set up with Dr Anand Sinus rhythm with 10% PVCs and rare PAC Average heart rate 75 (53-104) bpm No afib or aflutter noted in this study. No advanced AV block or significant pauses noted. Written by Sameer Silva MD on 04/15/2023 8:50 PM CDT Jud Grier RN [facility] 2023-04-06 14:53:34 Formatting of this n ote might be different from the original. Images from the original note were not included. Results and recommendations shared, verbalized understanding Sameer Silva MD P Cardiology Nurse Echocardiogram shows preserved LV systolic function. No significant valve normalities noted. Follow-up as planned. Susy Funes RN [facility] 2023-04-05 16:29:25 Formatting of this n ote might be different from the original. Images from the original note were not included. Attempted to contact patient with results/recommendations. LVM for patient to return call to [phone]. Sameer Silva MD P Cardiology Nurse Echocardiogram shows preserved LV systolic function. No significant valve normalities noted. Follow-up as planned. If patient returns call to clinic please let her know the results of heart ultrasound are normal, no concerns. Follow up as already scheduled. Rebecca Marks RN [facility] 2023-04-02 08:00:00 Formatting of this n ote might be different from the original. 48 hour holter (SEER 1000, #5) applied to patient, tolerated well. Wear, care, diary entry and monitor return teaching given, understanding verbalized. Monitor to be returned on 04/03/23 , return letter acknowledged and signed. Mira Cuevas MA [facility]
[2024-11-17] MEDS ORDERED: MAGNESIUM SULFATE 1 gm IVPB 1 GM/100 ML BAG IV ONE (07:38)
[2024-11-17 07:45] LABS: Absolute Basophils 0.1 K/uL (0-0.5); Absolute Lymphocytes (CBC) 1.1 K/uL (0.7-4.9); Absolute Monocytes 0.4 K/uL (0.1-1.3); Absolute Neutrophil 3.4 K/uL (1.8-8.0); Basophils % 1.9 % (0-1.3); Eosinophils % 0.9 % (0-4.4); Hematocrit 40.8 % (36.0-45.0); Hemoglobin 13.4 g/dL (12.0-15.0); Lymphocytes % 22.5 % (15.3-44.8); MCH 29.8 pg (27.0-35.0); MCHC 32.9 g/dL (32.0-36.0); MCV 90.5 fL (80-100); MPV 8.3 fL (7.6-11.3); Monocytes % 8.1 % (3.3-12.3); Neutrophils % 66.6 % (41.7-73.7); Nucleated Red Blood Cells % 0.2 % (0-0); Platelets 229 thou/uL (152-406); RBC Red Blood Cell Count 4.51 M/uL (3.86-4.86); Red Cell Distribution Width 14.4 % (12.1-15.2)
[2024-11-17 07:55] LABS: Anion Gap 8.7 mEq/L (5.0-15.0); Magnesium 2.4 mg/dL (1.6-2.4); Potassium 3.7 mEq/L (3.5-5.1)
--- NOTE | 2024-11-17 08:35 | ER ---
Nurse's Notes [facility] Name: Payton Barron Age: 69 yrs Sex: Female : 1955 Arrival Date: 11/17/2024 Time: 06:35 Bed 19 Private MD: Diagnosis: Tremor, unspecified;Other specified forms of tremor Presentation: 11/17 06:56 Chief complaint: Patient states: tremors x 3 weeks. Has a neuro appt on December 05. ss Coronavirus screen: Client denies travel out of the [place] in the last 14 days. Ebola Screen: Patient denies exposure to infectious person. Patient denies travel to an Ebola-affected area in the 21 days before illness onset. Initial Sepsis Screen: Does the patient meet any 2 criteria? No. Patient's initial sepsis screen is negative. Does the patient have a suspected source of infection? No. Patient's initial sepsis screen is negative. Risk Assessment: Do you want to hurt yourself or someone else? Patient reports no desire to harm self or others. Onset of symptoms is unknown. 06:56 Method Of Arrival: Ambulatory ss 06:56 Acuity: THONY 3 ss Historical: - Allergies: 06:58 Clindamycin; ss 06:58 Codeine; ss 06:58 Latex; ss 06:58 Lovenox; ss 06:58 methlyprednisolong; ss 06:58 Sulfa (Sulfonamide Antibiotics); ss - Home Meds: 06:58 aspirin 81 mg Oral chew 1 tab once daily [Active]; levothyroxine 75 mcg tab 1 tab once ss daily [Active]; - PMHx: 06:58 heart palpatations- treated with metoprolol; Hyperlipidemia; Hypothyroidism; ss Osteoporosis; 07:15 Atrial fibrillation; aa5 - PSHx: 07:15 Heart ablation; aa5 - Immunization history:: Adult Immunizations up to date. - Infectious Disease History:: Denies. - Social history:: Smoking status: Patient denies any tobacco usage or history of. Screenin:15 [facility] ED Fall Risk Assessment (Adult) History of falling in the last 3 months, aa5 including since admission No falls in past 3 months (0 pts) Confusion or Disorientation No (0 pts) Intoxicated or Sedated No (0 pts) Impaired Gait Yes (1 pt) Mobility Assist Device Used No (0 pt) Altered Elimination No (0 pt) Score/Fall Risk Level 0 - 2 = Low Risk Oriented to surroundings, Maintained a safe environment, Educated pt \T\ family on fall prevention, incl call for assistance when getting out of bed, Assessed \T\ reinforced patient's understanding of fall precautions. Abuse screen: Denies threats or abuse. Nutritional screening: No deficits noted. Tuberculosis screening: No symptoms or risk factors identified. Assessment: 07:15 General: Appears uncomfortable, Behavior is calm, cooperative. Pain: Denies pain. aa5 Neuro: Level of Consciousness is awake, alert, obeys commands, Oriented to person, place, time, situation, Unbundler are weak bilaterally Weakness in bilateral arm(s) leg(s) Speech is normal, Reports tremors that began to left side of body x 3 weeks ago and are now to all 4 extremities. Tremors currently noted to all 4 extremities, worse to left arm. . Cardiovascular: Heart tones S1 S2 present Rhythm is regular. Respiratory: Airway is patent Respiratory effort is even, unlabored, Respiratory pattern is regular, symmetrical. GI: No signs and/or symptoms were reported involving the gastrointestinal system. : No signs and/or symptoms were reported regarding the genitourinary system. EENT: No signs and/or symptoms were reported regarding the EENT system. Derm: Skin is pink, warm \T\ dry. Musculoskeletal: Range of motion: intact in all extremities. 08:09 Reassessment: Pt assisted to bedside commode, pt voided. . aa5 09:00 Reassessment: Patient is alert, oriented x 3, equal unlabored respirations, skin aa5 warm/dry/pink. Patient states feeling better. Reports tremors improved. . Vital Signs: 06:56 BP 154 / 72; Pulse 68; Resp 16; Temp 98.2; Pulse Ox 96% on R/A; Weight 56.25 kg; Height ss 5 ft. 3 in. ; 08:09 BP 151 / 53; Pulse 62; Resp 16 S; Pulse Ox 100% on R/A; aa5 06:56 Body Mass Index 21.97 (56.25 kg, 160.02 cm) ED Course: 06:38 Patient arrived in ED. [email or web address] 06:58 Triage completed. 06:58 Arm band placed on right wrist. 07:05 Cinthya Galicia, RN is Primary Nurse. aa5 07:05 Martín Powell DO is Attending Physician. ms3 07:15 Patient has correct armband on for positive identification. Bed in low position. Call aa5 light in reach. Side rails up X 1. Pulse ox on. NIBP on. 07:27 Inserted saline lock: 22 gauge in right antecubital area, using aseptic technique. aa5 Blood collected. Flushed with 10 mL NS. 08:12 No provider procedures requiring assistance completed. aa5 08:35 Kush Onofre MD is Referral Physician. ms3 09:00 IV discontinued, intact, bleeding controlled, No redness/swelling at site. Pressure aa5 dressing applied. Administered Medications: 07:45 Drug: Magnesium Sulfate IVPB 1 grams IVPB once over 1 hrs Route: IVPB; Infused Over: 1 aa5 hrs; Site: right antecubital; 08:45 Follow up: Response: No adverse reaction; IV Status: Completed infusion; IV Intake: aa5 100ml Medication: 08:12 VIS not applicable for this client. aa5 Intake: 08:45 IV: 100ml; Total: 100ml. aa5 Outcome: 08:35 Discharge ordered by MD. ms3 09:02 Discharged to home via wheelchair, with family, aa5 09:02 Condition: improved 09:02 Discharge instructions given to patient, Instructed on discharge instructions, follow up and referral plans. medication usage, Demonstrated understanding of instructions, follow-up care, medications, Prescriptions given X 1, 09:09 Patient left the ED. ss Signatures: Cinthya Galicia RN RN aa5 Gladys Frost RN RN Martín Powell DO DO ms3 Indigo Stewart [email or web address] Corrections: (The following items were deleted from the chart) 10:46 09:02 Discharged to home ambulatory, aa5 aa5
--- NOTE | 2024-11-17 08:35 | EDPHYS ---
Physician Documentation [facility] Name: Payton Barron Age: 69 yrs Sex: Female : 1955 Arrival Date: 11/17/2024 Time: 06:35 Bed 19 Private MD: ED Physician Martín Powell HPI: 11/17 09:21 This 69 yrs old Female presents to ER via Ambulatory with complaints of PT SHAKING. ms3 09:21 69-year-old female with past medical history of heart palpitations, hyperlipidemia, ms3 hypothyroidism, osteoporosis presents to the emergency department for shaking that is been ongoing for 3 weeks. Patient states she saw Dr. Onofre 2 weeks ago and has testing arranged in [place] for December 05. Patient states her shaking has become worse thus prompting her to come to the emergency department as the shaking now involves both sides of her body. Patient denies fevers, chills, nausea, vomiting. Historical: - Allergies: 06:58 Clindamycin; ss 06:58 Codeine; ss 06:58 Latex; ss 06:58 Lovenox; ss 06:58 methlyprednisolong; ss 06:58 Sulfa (Sulfonamide Antibiotics); ss - Home Meds: 06:58 aspirin 81 mg Oral chew 1 tab once daily [Active]; levothyroxine 75 mcg tab 1 tab once ss daily [Active]; - PMHx: 06:58 heart palpatations- treated with metoprolol; Hyperlipidemia; Hypothyroidism; ss Osteoporosis; 07:15 Atrial fibrillation; aa5 - PSHx: 07:15 Heart ablation; aa5 - Immunization history:: Adult Immunizations up to date. - Infectious Disease History:: Denies. - Social history:: Smoking status: Patient denies any tobacco usage or history of. ROS: 09:21 Constitutional: Negative for fever, and chills. Cardiovascular: Negative for chest ms3 pain, and palpitations. Respiratory: Negative for shortness of breath, cough, wheezing, and pleuritic chest pain, Abdomen/GI: Negative for abdominal pain, nausea, vomiting, diarrhea, and constipation, MS/Extremity: Negative for injury and deformity, 09:21 Neuro: Positive for tremor, Exam: :21 CT study not indicated or reported. Reason for not performing CT: Patient without ms3 focal neurologic deficit 09:21 Constitutional: This is a well developed, well nourished patient who is awake, alert, and in no acute distress. Cardiovascular: Regular rate and rhythm with a normal S1 and S2. No gallops, murmurs, or rubs. Normal PMI, no JVD. No pulse deficits. Respiratory: Lungs have equal breath sounds bilaterally, clear to auscultation and percussion. No rales, rhonchi or wheezes noted. No increased work of breathing, no retractions or nasal flaring. Abdomen/GI: Soft, non-tender, with normal bowel sounds. No distension or tympany. No guarding or rebound. No evidence of tenderness throughout. Skin: Warm, dry with normal turgor. Normal color with no rashes, no lesions, and no evidence of cellulitis. MS/ Extremity: Pulses equal, no cyanosis. Neurovascular intact. Full, normal range of motion. 09:21 Neuro: Abnormal movements: resting tremor, is located in the Bilateral upper extremities, Vital Signs: 06:56 BP 154 / 72; Pulse 68; Resp 16; Temp 98.2; Pulse Ox 96% on R/A; Weight 56.25 kg; Height ss 5 ft. 3 in. ; 08:09 BP 151 / 53; Pulse 62; Resp 16 S; Pulse Ox 100% on R/A; aa5 06:56 Body Mass Index 21.97 (56.25 kg, 160.02 cm) ss MDM: 07:23 Medical Screening Exam initiated ms3 07:28 Management of patient was discussed with the following: Strategic Partner Development Manager: Dr England- ms3 Recommends 1 mg IV Magnesium. He would like patient to go home on Propranolol 10 mg BID. 09:21 Differential diagnosis: Parkinson disease, metabolic disorder. TNKase (Tenecteplase) ms3 Screening: Not Applicable. Data reviewed: vital signs, nurses notes, lab test result(s), and as a result, I will discharge patient. I considered the following discharge prescriptions or medication management in the emergency department Medications were administered in the Emergency Department. See MAR. Counseling: I had a detailed discussion with the patient and/or guardian regarding the historical points, exam findings, and any diagnostic results supporting the discharge/admit diagnosis, lab results, the need for outpatient follow up, to return to the emergency department if symptoms worsen or persist or if there are any questions or concerns that arise at home. Special discussion: I discussed with the patient/guardian in detail that at this point there is no indication for admission to the hospital. It is understood, however, that if the symptoms persist or worsen the patient needs to return immediately for re-evaluation. ED course: Discussed my conversation with Dr. Onofre with the patient. Patient understands and agrees with plan. Patient states she is currently not taking magnesium and will begin magnesium supplementation. Patient given prescription for propranolol 10 mg twice daily. Patient understands and agrees with plan. All questions return precautions discussed include worsening symptoms, or any other concerns.. 11/17 07:09 Order name: CBC with Diff; Complete Time: 08:03 ms3 11/17 07:09 Order name: BMP; Complete Time: 08:03 ms3 11/17 07:40 Order name: Magnesium; Complete Time: 08:03 EDMS Administered Medications: 07:45 Drug: Magnesium Sulfate IVPB 1 grams IVPB once over 1 hrs Route: IVPB; Infused Over: 1 aa5 hrs; Site: right antecubital; 08:45 Follow up: Response: No adverse reaction; IV Status: Completed infusion; IV Intake: aa5 100ml Disposition Summary: 11/17/24 08:35 Discharge Ordered Notes: Location: Home ms3 Condition: Stable ms3 Diagnosis - Tremor, unspecified ms3 - Other specified forms of tremor ms3 Followup: ms3 - With: Kush Onofre MD - When: 2 - 3 days - Reason: Recheck today's complaints Discharge Instructions: - Discharge Summary Sheet ms3 - Tremor ms3 Forms: - Medication Reconciliation Form ms3 - Antibiotic Education ms3 - Prescription Opioid Use ms3 - Patient Portal Instructions ms3 - Leadership Thank You Letter ms3 Prescriptions: - Propranolol 10 mg Oral tablet - take 1 tablet ORAL route 2 times per day; 60 tablet; Refills: 0, Product ms3 Selection Permitted Signatures: Dispatcher [employer] EDMS Cinthya Galicia RN RN aa5 Gladys Frost RN RN ss Sims, Marcus, DO DO ms3 Corrections: (The following items were deleted from the chart) 07:41 07:29 [id number] ordered. EDMS EDMS
[2024-11-17 09:13] VITALS: TEMP 98.2
[2024-11-17 09:14] VITALS: BP 151/53; O2SAT 100
== END 2024-11-17 09:09 | disposition home or self-care (01) ==
LOC: ER 06:35
DX: G25.2 Other specified forms of tremor (principal); E78.5 Hyperlipidemia, unspecified; E03.9 Hypothyroidism, unspecified; I48.91 Unspecified atrial fibrillation; Z79.82 Long term (current) use of aspirin
CPT/HCPCS: 96365; 85025; 80048; 36415; 83735; 99284; J3475

== ENCOUNTER 2025-04-30 16:10 | Emergency (ER) | payer OTHER ==
[2025-04-30] MEDS ORDERED: FAMOTIDINE 20 MG/2 ML VIAL IV ONE (16:47)
[2025-04-30] MEDS ORDERED: ONDANSETRON 4 MG/2 ML VIAL ONE (16:47)
[2025-04-30] MEDS ORDERED: NA CHLORIDE 0.9% 1,000 ML ONE (16:48)
[2025-04-30 16:52] LABS: Absolute Lymphocytes (CBC) 1.1 K/uL (0.7-4.9); Hematocrit 37.0 % (36.0-45.0); Hemoglobin 12.5 g/dL (12.0-15.0); MCH 30.1 pg (27.0-35.0); MCHC 33.8 g/dL (32.0-36.0); MCV 88.9 fL (80-100); MPV 8.4 fL (7.6-11.3); Nucleated RBC Absolute Count 0.0 (0-0); Nucleated Red Blood Cells % 0.1 % (0-0); RBC Red Blood Cell Count 4.16 M/uL (3.86-4.86); White Blood Count 5.70 thou/uL (4.3-10.9)
[2025-04-30 16:58] LABS: PT Prothrombin Time 12.5 SECONDS (10-13.0); Protime INR 1.11
[2025-04-30 17:09] LABS: Influenza A Ag Negative; Influenza B Ag Negative; SARS-CoV-2 Antigen Rapid Res Negative (Negative)
--- NOTE | 2025-04-30 17:14 | RAD REPORT ---
EXAMINATION: ONE VIEW CHEST XR CLINICAL INDICATION: Female, 69 years old.,COUGH TECHNIQUE: Frontal chest projection is submitted. Examination is limited by patient positioning and t echnique. COMPARISON: 12/10/2021 FINDINGS: The lungs are well inflated and clear. No pneumothorax or sizable effusion. The heart is normal in s ize. Mediastinal contours are unremarkable. IMPRESSION: No acute intrathoracic abnormalities.
--- NOTE | 2025-04-30 17:15 | RAD REPORT ---
EXAM: CT Head Brain Wo Cont HISTORY: MENTAL STATUS CHANGE COMPARISON: 12/01/2008 TECHNIQUE: Multiple contiguous axial images were obtained for a CT of the brain without contrast. Sag ittal and coronal reformats were performed. One or more of the following dose reduction techniques were used: Automated exposure control, adjus tment of the mA and kV according to patient size, and iterative reconstruction. Unless otherwise specified, incidental findings do not require dedicated imaging follow-up. FINDINGS: No evidence of hydrocephalus, intracranial hemorrhage, or extra-axial fluid collection. The brain is normal in morphology. The calvarium is intact. The visualized paranasal sinuses and mastoid air cells are essentially clear . IMPRESSION: No evidence of acute intracranial abnormality.
[2025-04-30 17:17] LABS: ALT/SGPT 32.0 U/L (13-56); AST/SGOT 23.0 U/L (15-37); Albumin 3.5 g/dL (3.4-5.0); Albumin/Globulin Ratio 1.1 (1.1-1.8); Alkaline Phosphatase 46.0 U/L (45-117); Anion Gap 11.2 mEq/L (5.0-15.0); BUN Blood Urea Nitrogen 22.0 mg/dL (7-18); Bilirubin Indirect, Calculated 0.3 mg/dL (0.2-0.8); Globulin 3.1 g/dL (2.3-3.5); Glucose Level 109.0 mg/dL (74-106); Lipase 24.0 U/L (13-75); Magnesium 2.1 mg/dL (1.6-2.4); NT PRO-BNP 158.0 pg/mL (<125); Potassium 3.2 mEq/L (3.5-5.1); Troponin High Sensitivity 9.7 pg/mL (<58.9)
[2025-04-30 17:52] LABS: Sqamous Epithelial <5 /HPF (None Seen); Urine Culture Reflex Order NOT NEEDED; Urine Microscopic Reflex YN ORDER UMIC; Urine WBC Clump Rare /HPF (None Seen); Urine Yeast (Budding) Trace /HPF (None Seen)
--- NOTE | 2025-04-30 18:18 | EDPHYS ---
Physician Documentation [facility] Name: Payton Barron Age: 69 yrs Sex: Female : 1955 Arrival Date: 04/30/2025 Time: 16:10 Bed 13 Private MD: ED Physician Andi Guzman HPI: 04/30 17:31 This 69 yrs old Female presents to ER via Wheelchair with complaints of Altered Mental vick Status, Nausea/Vomiting, Dizziness. 17:31 The patient presents with confusion, decreased mental status, trouble concentrating. vick Onset: The symptoms/episode began/occurred 2 day(s) ago. Possible causes: CVA or TIA, drug use, alcohol, head injury, low blood sugar, seizure, sepsis. Associated signs and symptoms: The patient has no apparent associated signs or symptoms. Current symptoms: In the emergency department the patient's symptoms have improved, moderately. Patient's baseline: Neuro: alert and fully oriented. The patient has experienced similar episodes in the past, a few times. Historical: - Allergies: 16:19 Clindamycin; aa5 16:19 Codeine; aa5 16:19 Latex; aa5 16:19 Lovenox; aa5 16:19 Sulfa (Sulfonamide Antibiotics); aa5 16:19 Methylprednisolone; aa5 - PMHx: 16:19 Atrial fibrillation; heart palpatations- treated with metoprolol; Hyperlipidemia; aa5 Hypothyroidism; Osteoporosis; Parkinson's disease; - PSHx: 16:19 Heart ablation; aa5 - Immunization history:: Adult Immunizations unknown. - Infectious Disease History:: Denies. - Social history:: Smoking status: Patient denies any tobacco usage or history of. ROS: 17:32 Constitutional: Negative for fever, chills, and weight loss, Eyes: Negative for injury, vick pain, redness, and discharge, ENT: Negative for injury, pain, and discharge, Neck: Negative for injury, pain, and swelling, Cardiovascular: Negative for chest pain, palpitations, and edema, Respiratory: Negative for shortness of breath, cough, wheezing, and pleuritic chest pain, Abdomen/GI: Negative for abdominal pain, nausea, vomiting, diarrhea, and constipation, Back: Negative for injury and pain, : Negative for injury, bleeding, discharge, and swelling, MS/Extremity: Negative for injury and deformity, Skin: Negative for injury, rash, and discoloration, Neuro: Negative for headache, weakness, numbness, tingling, and seizure, Psych: Negative for depression, anxiety, suicide ideation, homicidal ideation, and hallucinations, Allergy/Immunology: Negative for hives, rash, and allergies, Endocrine: Negative for neck swelling, polydipsia, polyuria, polyphagia, and marked weight changes, Hematologic/Lymphatic: Negative for swollen nodes, abnormal bleeding, and unusual bruising, Exam: 17:32 Constitutional: This is a well developed, well nourished patient who is awake, alert, vick and in no acute distress. Head/Face: Normocephalic, atraumatic. Eyes: Pupils equal round and reactive to light, extra-ocular motions intact. Lids and lashes normal. Conjunctiva and sclera are non-icteric and not injected. Cornea within normal limits. Periorbital areas with no swelling, redness, or edema. ENT: Nares patent. No nasal discharge, no septal abnormalities noted. Tympanic membranes are normal and external auditory canals are clear. Oropharynx with no redness, swelling, or masses, exudates, or evidence of obstruction, uvula midline. Mucous membranes moist. Neck: Trachea midline, no thyromegaly or masses palpated, and no cervical lymphadenopathy. Supple, full range of motion without nuchal rigidity, or vertebral point tenderness. No Meningismus. Chest/axilla: Normal chest wall appearance and motion. Nontender with no deformity. No lesions are appreciated. Cardiovascular: Regular rate and rhythm with a normal S1 and S2. No gallops, murmurs, or rubs. Normal PMI, no JVD. No pulse deficits. Respiratory: Lungs have equal breath sounds bilaterally, clear to auscultation and percussion. No rales, rhonchi or wheezes noted. No increased work of breathing, no retractions or nasal flaring. Abdomen/GI: Soft, non-tender, with normal bowel sounds. No distension or tympany. No guarding or rebound. No evidence of tenderness throughout. Back: No spinal tenderness. No costovertebral tenderness. Full range of motion. Skin: Warm, dry with normal turgor. Normal color with no rashes, no lesions, and no evidence of cellulitis. MS/ Extremity: Pulses equal, no cyanosis. Neurovascular intact. Full, normal range of motion., bilateral aka Neuro: Awake and alert, GCS 15, oriented to person, place, time, and situation. Cranial nerves II-XII grossly intact. Motor strength 5/5 in all extremities. Sensory grossly intact. Cerebellar exam normal. Normal gait. Psych: Awake, alert, with orientation to person, place and time. Behavior, mood, and affect are within normal limits. 17:32 ECG was reviewed by the Attending Physician. Vital Signs: 16:19 BP 143 / 73; Pulse 58; Resp 18 S; Temp 98(O); Pulse Ox 100% on R/A; Weight 52.16 kg; aa5 Height 5 ft. 3 in. (R); 16:55 BP 156 / 73; Pulse 53; Resp 16 S; Pulse Ox 100% on R/A; aa5 17:45 BP 163 / 70; Pulse 52; Resp 16 S; Pulse Ox 99% on R/A; aa5 18:30 BP 142 / 79; Pulse 55; Resp 18 S; Pulse Ox 99% on R/A; aa5 16:19 Body Mass Index 20.37 (52.16 kg, 160.02 cm) aa5 MDM: 16:14 Medical Screening Exam initiated vick 16:25 Medical Screening Exam initiated vick 17:34 Differential diagnosis: Nonspecific abd pain, gastritis, cholecystitis, pancreatitis, vick appendicitis, diverticulitis, viral gastroenteritis, gastroenteritis. Differential Diagnosis: CVA, electrolyte abnormality, hypoglycemia, intracranial bleed, meningitis, overdose, pneumonia, seizure, sepsis, TIA, UTI, volume depletion, cardiac arrhythmia, CVA, generalized weakness, GI bleed, head injury, hyperventilation, hypovolemia, idiopathic dizziness, near-syncope, sepsis, syncope, TIA, vertigo. Data reviewed: vital signs, nurses notes, lab test result(s), EKG, radiologic studies, CT scan, plain films. Consideration of Admission/Observation Escalation of care including admission/observation considered. I considered the following discharge prescriptions or medication management in the emergency department Medications were administered in the Emergency Department. See MAR. Independent interpretation of the following test(s) in the Emergency Department EKG: See my EKG interpretation above. Test considered but Not performed: MRI: no mri brain. Historians other than the Patient: Daughter/Son: daughter well informed. Care significantly affected by the following chronic conditions: Hypertension, hyperlipid. Counseling: I had a detailed discussion with the patient and/or guardian regarding the historical points, exam findings, and any diagnostic results supporting the discharge/admit diagnosis, lab results, radiology results, the need for outpatient follow up. 04/30 16:17 Order name: Basic Metabolic Panel; Complete Time: 17:52 [facility] 04/30 16:17 Order name: CBC with Diff; Complete Time: 17:08 [facility] 04/30 16:17 Order name: LFT's; Complete Time: 17:52 [facility] 04/30 16:17 Order name: Magnesium; Complete Time: 17:52 [facility] 04/30 16:17 Order name: NT PRO-BNP; Complete Time: 17:52 [facility] 04/30 16:17 Order name: PT-INR; Complete Time: 17:08 [facility] 04/30 16:17 Order name: Troponin HS; Complete Time: 17:52 [facility] 04/30 16:17 Order name: Lipase; Complete Time: 17:52 [facility] 04/30 16:17 Order name: UA Rfx Jefferson Cult if indicated; Complete Time: 17:53 [facility] 04/30 16:18 Order name: COVID-19 Ag + Flu A+B Ag; Complete Time: 17:52 [facility] 04/30 16:17 Order name: XRAY Chest (1 view); Complete Time: 17:52 [facility] 04/30 16:17 Order name: CT Head Brain wo Cont; Complete Time: 17:52 [facility] 04/30 16:17 Order name: Cardiac monitoring; Complete Time: 16:32 [facility] 04/30 16:17 Order name: EKG - Nurse/Tech; Complete Time: 17:00 [facility] 04/30 16:17 Order name: IV Saline Lock; Complete Time: 17:00 [facility] 04/30 16:17 Order name: Labs collected and sent; Complete Time: 17:00 [facility] 04/30 16:17 Order name: O2 Per Protocol; Complete Time: 16:31 [facility] 04/30 16:17 Order name: O2 Sat Monitoring; Complete Time: 16:31 [facility] 04/30 18:17 Order name: PO challenge: juice; Complete Time: 18:31 [facility] EC:32 Rate is 53 beats/min. Rhythm is regular. QRS [place] is Normal. IN interval is prolonged vick at 220 msec. QRS interval is normal. QT interval is normal. No Q waves. T waves are Normal. No ST changes noted. Clinical impression: NSR w/ Non-specific ST/T Changes and No evidence of ischemia. Interpreted by me. Reviewed by me. Administered Medications: 17:01 Drug: NS 0.9% IV 1000 ml IV at 1000 ml once; to be given as a bolus over 60 minutes nh2 Route: IV; Rate: 1000 ml; Site: left antecubital; 18:31 Follow up: IV Status: Completed infusion; IV Intake: 1000ml aa5 17:01 Drug: Ondansetron IVP 4 mg IVP once; over 2 minutes Route: IVP; Site: left antecubital; nh2 17:15 Follow up: Response: No adverse reaction aa5 17:01 Drug: Famotidine IVP 20 mg IVP once; dilute with 10 mL 0.9% NaCl; give over 2 minutes nh2 Route: IVP; Site: left antecubital; 17:15 Follow up: Response: No adverse reaction aa5 18:31 Drug: Rocephin IV 1 grams IV at per protocol once; Given slow IV push per pharmacy aa5 instructions Route: IV; Rate: per protocol; Site: right forearm; 19:00 Follow up: Response: No adverse reaction; IV Status: Completed infusion aa5 18:45 Drug: Ciprofloxacin PO 500 mg PO once Route: PO; aa5 19:23 Follow up: Response: No adverse reaction aa5 Disposition Summary: 04/30/25 18:17 Discharge Ordered Notes: Location: Home vick Problem: new vick Symptoms: have improved vick Condition: Stable vick Diagnosis - Altered mental status, unspecified vick - Dementia in other diseases classified elsewhere without behavioral disturbance vick - UTI/ Urinary tract infection, site not specified vick - Hypokalemia vick Followup: vick - With: Private Physician - When: 2 - 3 days - Reason: Recheck today's complaints, Continuance of care, Re-evaluation by your physician Followup: vick - With: Kush Onofre MD - When: 2 - 3 days - Reason: Recheck today's complaints, Re-evaluation by your physician Discharge Instructions: - Discharge Summary Sheet vick - Confusion vick - Dementia vick - Potassium Content of Foods vick - Dysuria vick - Urinary Tract Infection, Adult vick - Urinary Tract Infection, Adult, [id number] vick - Antibiotic Medicine, Adult, [id number] vick - Hypokalemia vick - Dementia, [id number] vick Forms: - Medication Reconciliation Form vick - Antibiotic Education vick - Prescription Opioid Use vick - Patient Portal Instructions [facility] - Leadership Thank You Letter [facility] Prescriptions: - cefdinir 300 mg Oral capsule - take 1 capsule ORAL route 2 times per day for 5 days; 10 capsule; Refills: 0, [facility] Product Selection Permitted - Cipro 250 mg Oral tablet - take 1 tablet ORAL route every 12 hours; 14 tablet; Refills: 0, Product [facility] Selection Permitted - Diflucan 150 mg Oral tablet - take 1 tablet ORAL route one time for 1 day; 1 tablet; Refills: 0, Product vick Selection Permitted - ondansetron 8 mg Oral Tablet,disintegrating - take 1 tablet ORAL route every 8 hours prn nausea and vomiting; 20 tablet; [facility] Refills: 0, Product Selection Permitted Signatures: Dispatcher [employer] EDMS Andi Guzman MD MD cha Calderon, Audri, RN RN aa5 Lewis Harris Jr, RN RN nh2 Corrections: (The following items were deleted from the chart) 16:18 16:17 BASIC METABOLIC PANEL+C.LAB.BRZ ordered. EDMS EDMS 16:18 16:17 CBC+H.LAB.BRZ ordered. EDMS EDMS 16:18 16:17 HEPATIC FUNCTION+C.LAB.BRZ ordered. EDMS EDMS 16:18 16:17 MAGNESIUM+C.LAB.BRZ ordered. EDMS EDMS 16:18 16:17 PROBNP+C.LAB.BRZ ordered. EDMS EDMS 16:18 16:17 PROTIME (+INR)+COAG.LAB.BRZ ordered. EDMS EDMS 16:18 16:17 Troponin High Sensitivity+C.LAB.BRZ ordered. EDMS EDMS 16:18 16:17 LIPASE+C.LAB.BRZ ordered. EDMS EDMS 16:18 16:17 UA Rfx Jefferson Cult if indicated+U.LAB.BRZ ordered. EDMS EDMS 16:29 16:19 Allergies: methlyprednisolong; aa5 aa5
--- NOTE | 2025-04-30 18:18 | ER ---
Nurse's Notes [facility] Name: Payton Barron Age: 69 yrs Sex: Female : 1955 Arrival Date: 04/30/2025 Time: 16:10 Bed 13 Private MD: Diagnosis: Altered mental status, unspecified;Dementia in other diseases classified elsewhere without behavioral disturbance;UTI/ Urinary tract infection, site not specified;Hypokalemia Presentation: 04/30 16:19 Chief complaint: Chief complaint: Daughter reports nausea and vomiting x 2 days and aa5 confusion today. 16:19 Acuity: THONY 2 aa5 16:19 Coronavirus screen: nausea, vomiting. Ebola Screen: Patient denies travel to an aa5 Ebola-affected area in the 21 days before illness onset. Initial Sepsis Screen: Does the patient meet any 2 criteria? No. Patient's initial sepsis screen is negative. Does the patient have a suspected source of infection? No. Patient's initial sepsis screen is negative. Risk Assessment: Do you want to hurt yourself or someone else? Patient reports no desire to harm self or others. Onset of symptoms was April 2025. 16:19 Method Of Arrival: Wheelchair aa5 Historical: - Allergies: 16:19 Clindamycin; aa5 16:19 Codeine; aa5 16:19 Latex; aa5 16:19 Lovenox; aa5 16:19 Sulfa (Sulfonamide Antibiotics); aa5 16:19 Methylprednisolone; aa5 - PMHx: 16:19 Atrial fibrillation; heart palpatations- treated with metoprolol; Hyperlipidemia; aa5 Hypothyroidism; Osteoporosis; Parkinson's disease; - PSHx: 16:19 Heart ablation; aa5 - Immunization history:: Adult Immunizations unknown. - Infectious Disease History:: Denies. - Social history:: Smoking status: Patient denies any tobacco usage or history of. Screenin:19 [facility] ED Fall Risk Assessment (Adult) History of falling in the last 3 months, aa5 including since admission Yes- fall prone (multiple falls) (3 pts) Confusion or Disorientation No (0 pts) Intoxicated or Sedated No (0 pts) Impaired Gait Yes (1 pt) Mobility Assist Device Used Yes (1 pt) Altered Elimination No (0 pt) Score/Fall Risk Level 3 or more points = High Risk Oriented to surroundings, Maintained a safe environment, Educated pt \\T\\ family on fall prevention, incl call for assistance when getting out of bed, Assessed \\T\\ reinforced patient's understanding of fall precautions. Abuse screen: Denies threats or abuse. Nutritional screening: No deficits noted. Tuberculosis screening: No symptoms or risk factors identified. Assessment: 16:19 General: Appears comfortable, Behavior is calm, cooperative. Pain: Denies pain. Neuro: aa5 Level of Consciousness is awake, alert, obeys commands, Oriented to person, place, time, Search Marketing Analyst are weak bilaterally Moves all extremities. Speech is normal, Facial symmetry appears normal. Cardiovascular: Heart tones S1 S2 present Rhythm is regular. Respiratory: Airway is patent Respiratory effort is even, unlabored, Respiratory pattern is regular, symmetrical. GI: Abdomen is non-distended, Last BM was April 27, 2025. Bowel sounds present X 4 quads. Abd is soft and non tender X 4 quads. Reports nausea, vomiting. : No signs and/or symptoms were reported regarding the genitourinary system. EENT: No signs and/or symptoms were reported regarding the EENT system. Derm: Skin is pink, warm \\T\\ dry. Musculoskeletal: Range of motion: intact in all extremities. 16:19 Reassessment: Pt's daughter states "I found pills all over the floor". Pt states "I aa5 tried to organize my pills but then I got confused". Pt's daughter also states "they told me she looked confused today, she told somebody that she was going to go get her phone and she came back with a dog" . 17:00 Reassessment: Patient is alert, oriented x 3, equal unlabored respirations, skin aa5 warm/dry/pink. 17:35 Reassessment: Pt assisted to restroom by me and daughter for urine specimen collection. aa5 Pt now back in bed. Urine specimen sent to lab. . 18:30 Reassessment: Pt given crackers and water before Cipro PO administration. Pt tolerating aa5 well. . 19:15 Reassessment: Patient is alert, oriented x 3, equal unlabored respirations, skin aa5 warm/dry/pink. Denies nausea/vomiting at this time. Tolerated PO challenge well. . Vital Signs: 16:19 BP 143 / 73; Pulse 58; Resp 18 S; Temp 98(O); Pulse Ox 100% on R/A; Weight 52.16 kg; aa5 Height 5 ft. 3 in. (R); 16:55 BP 156 / 73; Pulse 53; Resp 16 S; Pulse Ox 100% on R/A; aa5 17:45 BP 163 / 70; Pulse 52; Resp 16 S; Pulse Ox 99% on R/A; aa5 18:30 BP 142 / 79; Pulse 55; Resp 18 S; Pulse Ox 99% on R/A; aa5 16:19 Body Mass Index 20.37 (52.16 kg, 160.02 cm) aa5 ED Course: 16:11 Patient arrived in ED. mr 16:14 Andi Guzman MD is Attending Physician. vick 16:19 Arm band placed on. aa5 16:19 Patient has correct armband on for positive identification. Placed in gown. Bed in low aa5 position. Call light in reach. Side rails up X2. Adult w/ patient. Client placed on continuous cardiac and pulse oximetry monitoring. NIBP monitoring applied. panel monitor on. Pulse ox on. NIBP on. 16:28 Cinthya Galicia, RN is Primary Nurse. aa5 16:31 Triage completed. aa5 16:45 Inserted saline lock: 22 gauge in right forearm, using aseptic technique. Blood aa5 collected. Flushed with 10 mL NS. 17:03 XRAY Chest (1 view) In Process Unspecified. EDMS 17:08 CT Head Brain wo Cont In Process Unspecified. EDMS 17:52 No provider procedures requiring assistance completed. aa5 18:17 Kush Onofre MD is Referral Physician. [facility] 19:15 IV discontinued, intact, bleeding controlled, No redness/swelling at site. Pressure aa5 dressing applied. Administered Medications: 17:01 Drug: NS 0.9% IV 1000 ml IV at 1000 ml once; to be given as a bolus over 60 minutes nh2 Route: IV; Rate: 1000 ml; Site: left antecubital; 18:31 Follow up: IV Status: Completed infusion; IV Intake: 1000ml aa5 17:01 Drug: Ondansetron IVP 4 mg IVP once; over 2 minutes Route: IVP; Site: left antecubital; nh2 17:15 Follow up: Response: No adverse reaction aa5 17:01 Drug: Famotidine IVP 20 mg IVP once; dilute with 10 mL 0.9% NaCl; give over 2 minutes nh2 Route: IVP; Site: left antecubital; 17:15 Follow up: Response: No adverse reaction aa5 18:31 Drug: Rocephin IV 1 grams IV at per protocol once; Given slow IV push per pharmacy aa5 instructions Route: IV; Rate: per protocol; Site: right forearm; 19:00 Follow up: Response: No adverse reaction; IV Status: Completed infusion aa5 18:45 Drug: Ciprofloxacin PO 500 mg PO once Route: PO; aa5 19:23 Follow up: Response: No adverse reaction aa5 Medication: 17:52 VIS not applicable for this client. aa5 Intake: 18:31 IV: 1000ml; Total: 1000ml. aa5 Outcome: 18:17 Discharge ordered by . vick 19:20 Discharged to home via wheelchair, with family, aa5 19:20 Condition: stable 19:20 Discharge instructions given to patient, Instructed on discharge instructions, follow up and referral plans. medication usage, Demonstrated understanding of instructions, follow-up care, medications, Prescriptions given X 4, 19:25 Patient left the ED. aa5 Signatures: Dispatcher [employer] EDMS Andi Guzman MD MD cha Rivera, Mary, Reg Reg Cinthya Cleary, RN RN aa5 Lewis Harris Jr RN RN nh2 Corrections: (The following items were deleted from the chart) 16:29 16:19 Allergies: methlyprednisolong; aa5 aa5 17:54 16:19 Chief complaint: aa5 aa5
[2025-04-30] MEDS ORDERED: CIPROFLOXACIN HCL 500 MG TAB ONE (18:22)
[2025-04-30] MEDS ORDERED: CEFTRIAXONE 1000 MG/VIAL ONE (18:22)
[2025-05-01 01:16] VITALS: TEMP 98
[2025-05-01 01:18] VITALS: O2SAT 99
[2025-05-01 01:19] VITALS: BP 142/79
== END 2025-04-30 19:25 | disposition home or self-care (01) ==
LOC: ER 16:10
DX: N39.0 Urinary tract infection, site not specified (principal); E87.6 Hypokalemia; G20.A1 Parkinson's disease without dyskinesia, without mention of fluctuations; F02.80 Dementia in other diseases classified elsewhere, unspecified severity, without behavioral disturbance, psychotic disturbance, mood disturbance, and anxiety; Z11.52 Encounter for screening for COVID-19
CPT/HCPCS: 96365; 96361; 93005; 85025; 81001; 80048; 36415; 83735; 85610; 80076; 84484; 83690; 83880; 70450; 71045; 96375; 99285; 87428; J2405; J7030; J0696